=== PATIENT | female | born 1990 | race Caucasian/White ===

== ENCOUNTER 2020-03-07 08:30 | Outpatient (REF) | payer OTHER, SELFPAY ==
[2020-03-07 10:00] LABS: Alanine Aminotransferase 22 U/L (0-31); Albumin Level 4.7 g/dL (3.5-5.0); Alkaline Phosphatase 89 U/L (39-117); Anion Gap 13 (12-20); Aspartate Amino Transferase 18 U/L (5-31); Bilirubin Total 0.7 mg/dL (0.0-1.0); Blood Urea Nitrogen 9 mg/dL (9-16); Calcium 9.2 mg/dL (8.4-10.2); Carbon Dioxide 25 mmol/L (22-29); Chloride 105 mmol/L (96-108); Cholesterol 231 mg/dL; Estimated Glomerular Filt Rate > 60; Glucose Fasting 141 mg/dL (60-99); HDL Cholesterol 54 mg/dL; LDL Cholesterol Calculated 163 mg/dl; Potassium 4.5 mmol/l (3.3-5.1); Sodium 138 mmol/L (135-145); Total Protein 6.8 g/dL (6.5-8.0); Triglycerides 71 mg/dL
[2020-03-07 10:12] LABS: Estimated Average Glucose 114 mg/dL; Hemoglobin A1c % 5.6 %
[2020-03-07 10:49] LABS: Glucose Urine UA NEG (NEG); Leukocyte Esterase Urine NEG (NEG); Nitrite Urine NEG (NEG); Specific Gravity - Urine 1.015 (1.005-1.025); Urine Blood NEG (NEG); Urine Ketones NEG (NEG); Urine Protein NEG (NEG-TRACE)
[2020-03-07 10:51] LABS: Appearance Urine HAZY; Color Urine YELLOW
[2020-03-07 11:08] LABS: Bacteria Urine 3+ /LPF; RBC Urine 0 /HPF (0); Squamous Epithelial Cell Urine TRACE /LPF; WBC Urine 0-2 /HPF (0-4)
== END 2020-03-07 08:31 | disposition home or self-care (01) ==
LOC: HO.LAB 08:30
PROVIDERS: PCP Physician Assistant; Visit Provider Physician Assistant
DX: Z13.220 Encounter for screening for lipoid disorders (principal); Z13.29 Encounter for screening for other suspected endocrine disorder
CPT/HCPCS: 80053; 80061; 81001; 83036

== ENCOUNTER 2020-04-10 11:26 | Outpatient (REF) | payer OTHER, SELFPAY ==
[2020-04-11 09:36] LABS: BV Int Neg Control Negative (Negative); BV Int Pos Control Positive (Positive)
[2020-04-11 09:49] LABS: CT PCR NOT DETECTED (Not Detect.); NG PCR NOT DETECTED (Not Detect.)
== END 2020-04-10 11:27 | disposition home or self-care (01) ==
LOC: HO.LAB 11:26
PROVIDERS: PCP Physician Assistant; Visit Provider Obstetrics & Gynecology
DX: R10.2 Pelvic and perineal pain (principal); N93.9 Abnormal uterine and vaginal bleeding, unspecified; Z11.3 Encounter for screening for infections with a predominantly sexual mode of transmission
CPT/HCPCS: 87480; 87491; 87510; 87591; 87660; 99212

== ENCOUNTER 2020-04-23 14:07 | Outpatient (REF) | payer OTHER, SELFPAY | END 2020-04-23 14:08 | disposition home or self-care (01) | LOC: HO.LAB 14:07 | PROVIDERS: Visit Provider Internal Medicine | DX: Z20.828 Contact with and (suspected) exposure to other viral communicable diseases (principal) | CPT/HCPCS: C9803; U0003 ==

== ENCOUNTER 2020-04-30 08:35 | Outpatient (REF) | payer OTHER, SELFPAY ==
[2020-05-03 18:37] LABS: HPV mRNA E6/E7 rflx Not Detected (Not Detected)
== END 2020-04-30 08:36 | disposition home or self-care (01) ==
LOC: HO.LAB 08:35
PROVIDERS: Visit Provider Obstetrics & Gynecology
DX: N75.1 Abscess of Bartholin's gland (principal); Z12.4 Encounter for screening for malignant neoplasm of cervix
CPT/HCPCS: 56420; 87071; 87205; 87624; 87625; 88142

== ENCOUNTER → 2020-05-07 09:10 | Outpatient (BNVA) | payer OTHER, SELFPAY | PROVIDERS: Visit Provider Obstetrics & Gynecology | DX: N75.1 Abscess of Bartholin's gland (principal) | CPT/HCPCS: 99212 ==

== ENCOUNTER 2020-09-04 10:48 | Outpatient (REF) | payer OTHER, SELFPAY ==
[2020-09-04 14:19] LABS: MANUAL DIFF FLAG NO
[2020-09-04 14:28] LABS: Basophils Absolute Auto 0.1 X10*3/uL (0.0-0.2); Basophils Percent Auto 0.8 % (0-2); Eosinophils Absolute Auto 0.3 X10*3/uL (0.0-0.4); Eosinophils Percent Auto 4.8 % (0-4); Hemoglobin 14.6 g/dl (12.0-16.0); Imm Gran Abs Auto 0.01 X10*3/uL (0.00-0.03); Imm Gran Pct Auto 0.2 % (0.0-0.4); Lymphocytes Percent Auto 16.4 % (20-40); Mean Corpuscular HGB Conc 32.4 g/dl (31.0-35.0); Mean Corpuscular Volume 83.3 fL (80-98); Mean Platelet Volume 12.2 fL (9.4-12.3); Monocytes Absolute Auto 0.5 X10*3/uL (0.1-1.2); Monocytes Percent Auto 8.5 % (2-11); Neutrophils Absolute Auto 4.3 X10*3/uL (2.0-8.3); Neutrophils Percent Auto 69.3 % (45-73); Platelet Count 236 X10*3/uL (160-400); Red Cell Distribution Width 12.9 % (11.0-16.0); White Blood Count 6.2 X10*3/uL (4.8-10.8)
[2020-09-04 14:54] LABS: Alanine Aminotransferase 48 U/L (0-31); Albumin Level 4.3 g/dL (3.5-5.0); Alkaline Phosphatase 101 U/L (39-117); Anion Gap 15 (12-20); Aspartate Amino Transferase 32 U/L (5-31); Bilirubin Total 0.8 mg/dL (0.0-1.0); Blood Urea Nitrogen 10 mg/dL (9-16); Calcium 9.1 mg/dL (8.4-10.2); Carbon Dioxide 30 mmol/L (22-29); Chloride 99 mmol/L (96-108); Cholesterol 229 mg/dL; Estimated Glomerular Filt Rate > 60; Glucose Fasting 98 mg/dL (60-99); HDL Cholesterol 44 mg/dL; LDL Cholesterol Calculated 156 mg/dl; Potassium 3.9 mmol/L (3.3-5.1); Sodium 140 mmol/L (135-145); Total Protein 6.5 g/dL (6.5-8.0); Triglycerides 147 mg/dL
[2020-09-04 15:15] LABS: TSH reflex Free T4 0.66 uIU/mL (0.32-4.0)
[2020-09-04 16:07] LABS: Estimated Average Glucose 114 mg/dL; Hemoglobin A1C 136.8653 umol/L; Hemoglobin A1c % 5.6 %
== END 2020-09-04 10:49 | disposition home or self-care (01) ==
LOC: HO.HMGCLDS 10:48
PROVIDERS: Absent Provider Nurse Practitioner Family; Visit Provider Physician Assistant
DX: E66.01 Morbid (severe) obesity due to excess calories (principal); Z68.41 Body mass index [BMI] 40.0-44.9, adult; R73.09 Other abnormal glucose; E78.9 Disorder of lipoprotein metabolism, unspecified; D69.6 Thrombocytopenia, unspecified
CPT/HCPCS: 80053; 80061; 83036; 84443; 85025

== ENCOUNTER 2020-09-17 14:05 | Emergency (ER) | payer OTHER, SELFPAY ==
--- NOTE | ~2020-09-17 | US_ITS ---
EXAMINATION: PELVIC ULTRASOUND CLINICAL INFORMATION: Pelvic pain COMPARISON: Pelvic ultrasound 10/30/2018 TECHNIQUE: Both transabdominal and endovaginal scanning was performed. FINDINGS: The anteverted uterus is present measuring 9.0 x 3.9 x 3.6 cm. The endometrium appears normal at 0.7 cm. A single uterine fibroid is again seen at the fundus measuring 1.1 x 1.0 x 1.5 cm without significant change. The right ovary measures 5.7 x 5.2 x 5.9 cm for a volume of 92 mL which includes a 4.3 x 3.4 x 4.3 cm cyst. Some smaller cysts are noted as well. The left ovary measures 1.6 x 1.0 x 1.2 cm for volume of 1 mL and appears normal. A small amount of free fluid is present in the cul-de-sac US/US pelvic and transvaginal IMPRESSION: 4.3 cm simple appearing right ovarian cyst. This is almost certainly benign and no follow-up imaging is recommended.
[2020-09-17 14:20] VITALS: BP 157/103; PULSE 97; RESP 18; TEMP 35.7; O2SAT 100; BMI 43.9
[2020-09-17 16:39] LABS: MANUAL DIFF FLAG NO
[2020-09-17 16:42] LABS: Glucose Urine UA NEG (NEG); Leukocyte Esterase Urine NEG (NEG); Nitrite Urine NEG (NEG); Specific Gravity - Urine <= 1.005 (1.005-1.025); Urine Blood NEG (NEG); Urine Ketones NEG (NEG); Urine Protein NEG (NEG-TRACE)
[2020-09-17 16:43] LABS: Appearance Urine CLEAR; Color Urine YELLOW
[2020-09-17 16:44] LABS: Basophils Absolute Auto 0.1 X10*3/uL (0.0-0.2); Basophils Percent Auto 0.6 % (0-2); Eosinophils Absolute Auto 0.1 X10*3/uL (0.0-0.4); Hematocrit 41.6 % (37-47); Hemoglobin 13.8 g/dl (12.0-16.0); Imm Gran Abs Auto 0.02 X10*3/uL (0.00-0.03); Imm Gran Pct Auto 0.2 % (0.0-0.4); Lymphocytes Absolute Auto 1.1 X10*3/uL (1.2-4.9); Lymphocytes Percent Auto 11.9 % (20-40); Mean Corpuscular HGB Conc 33.2 g/dl (31.0-35.0); Mean Corpuscular Hemoglobin 27.3 pg (27.0-33.0); Mean Corpuscular Volume 82.2 fL (80-98); Mean Platelet Volume 11.4 fL (9.4-12.3); Monocytes Absolute Auto 0.6 X10*3/uL (0.1-1.2); Monocytes Percent Auto 5.7 % (2-11); Neutrophils Absolute Auto 7.7 X10*3/uL (2.0-8.3); Neutrophils Percent Auto 80.6 % (45-73); Platelet Count 220 X10*3/uL (160-400); Red Blood Count 5.06 X10*6/uL (4.20-5.50); Red Cell Distribution Width 12.7 % (11.0-16.0); White Blood Count 9.6 X10*3/uL (4.8-10.8)
[2020-09-17 17:08] LABS: Alanine Aminotransferase 33 U/L (0-31); Albumin Level 4.2 g/dL (3.5-5.0); Alkaline Phosphatase 93 U/L (39-117); Anion Gap 14 (12-20); Aspartate Amino Transferase 28 U/L (5-31); Bilirubin Total 0.6 mg/dL (0.0-1.0); Blood Urea Nitrogen 9 mg/dL (9-16); Calcium 8.7 mg/dL (8.4-10.2); Carbon Dioxide 25 mmol/L (22-29); Chloride 103 mmol/L (96-108); Estimated Glomerular Filt Rate > 60; Glucose Random 94 mg/dL (60-115); Potassium 3.8 mmol/L (3.3-5.1); Sodium 138 mmol/L (135-145); Total Protein 6.3 g/dL (6.5-8.0)
--- NOTE | 2020-09-17 17:29 | ED.ABDPAIN ---
HPI - Abdominal Pain General Chief Complaint: Abdominal Pain Stated Complaint: PELVIC PAIN Time Seen by Provider: 09/17/20 17:25 Source: patient Mode of arrival: ambulatory Limitations: no limitations History of Present Illness HPI narrative: 30-year-old female with past medical history of thrombocytopenia, hypertension, hyperlipidemia, and obesity presents with several hours of lower abdominal pain. States that she has known ovarian cyst. States the pain worsens with urination. Patient does not report any risk for sexually transmitted infection, and denies vaginal bleeding, vaginal discharge, chest pain or pressure, palpitations, shortness breath, abdominal distention, hematuria, fevers, chills, and edema. MD elicited complaint: abdominal pain Onset (ago): hour(s) (Several hours prior to arrival) Pain Consistency: constant Location: suprapubic Severity: moderate Quality: cramping and aching Radiation: RLQ Exacerbating factors: other (Voiding) Relieving factors: nothing Associated symptoms: denies other symptoms Related Data Home Medications Medication Instructions Recorded Confirmed albuterol sulfate 90 mcg/actuation 2 puff PO Q4H PRN 04/03/20 04/03/20 aerosol inhaler barium sulfate 2 % (w/v) oral ml PO 09/02/20 suspension chlorhexidine gluconate 0.12 % ml PO 09/02/20 mouthwash doxycycline hyclate 100 mg tablet 100 mg PO BID 09/02/20 hydrochlorothiazide 50 mg tablet 50 mg PO QAM 09/02/20 lisinopril 10 mg tablet 10 mg PO DAILY 09/02/20 omeprazole 20 mg capsule,delayed 20 mg PO DAILY 09/02/20 release prednisone 20 mg tablet 40 mg PO QAM 09/02/20 Previous Rx's Medication Instructions Recorded lorazepam 0.5 mg tablet 0.5 mg PO BEDTIME PRN 5 Days #5 tab 04/03/20 sulfamethoxazole 800 1 tab PO BID 5 Days #10 tab 05/02/20 mg-trimethoprim 160 mg tablet hydrochlorothiazide 25 mg tablet 25 mg PO QAM #30 cap 08/18/20 azithromycin 250 mg tablet See Rx Instructions PO .COMPLEX #6 09/02/20 tab ibuprofen 600 mg PO TID PRN #60 tab 09/17/20 Allergies Allergy/AdvReac Type Severity Reaction Status Date / Time amlodipine Allergy Unknown Hives Verified 07/25/20 07:45 amoxicillin [AMOXICILLIN] Allergy Unknown UNKNOWN Verified 07/25/20 07:45 aspirin [ASPIRIN] Allergy Unknown LOW Verified 07/25/20 07:45 PLATELETS, bleeding, ITP propranolol Allergy Unknown Hives Verified 07/25/20 07:45 Review of Systems Review of Systems Constitutional: No Weight loss, No Fever, No Chills, No Night Sweats, No Fatigue, No Malaise ENT/Mouth: No Hearing loss, No Ear Pain, No Nasal Congestion, No Sinus Pain, No Hoarseness, No sore throat, No Rhinorrhea, No Swallowing Difficulty Eyes: No Eye Pain, No Swelling, No Redness, No Foreign Body, No Discharge, No Vision Changes Cardiovascular: No Chest Pain, No SOB, No Dyspnea on Exertion, No Orthopnea, No Edema, No Palpitations Respiratory: No Cough, No Sputum, No Wheezing, No Smoke Exposure, No Dyspnea Gastrointestinal: Positive abdominal pain, No Nausea, no Vomiting, no Diarrhea, No Hematochezia, No Melena Genitourinary: no irregular bleeding, No Dysuria, No Urinary Frequency, No Hematuria, No Urinary Incontinence, No Urgency, No Flank Pain, No Urinary Flow Changes, No Hesitancy Musculoskeletal: No joint pain, No Myalgias, No Joint Swelling Skin: No Skin Lesions, No rash Neuro: No Weakness, No Numbness, No Paresthesias, No Loss of Consciousness, No Dizziness, No Headache Psych: No Anxiety/Panic, No Depression, No SI/HI/AH/VH, No Social Issues Heme/Lymph: No Bruising, No Bleeding,No Lymphadenopathy Endocrine: No Polyuria, No Polydipsia, No Temperature Intolerance Yes all other systems are reviewed and are negative Physical Exam Vital Signs: Vital Signs: Last Vital Signs Temp 96.2 F L 09/17/20 14:20 Pulse 96 09/17/20 18:36 Resp 16 09/17/20 18:36 BP 151/97 H 09/17/20 18:36 Pulse Ox 100 09/17/20 18:36 Body Mass Index 43.9 Appearance: Alert. Oriented X3. Mild distress. Head: Normal external exam. Normocephalic. Atraumatic. No Kaye signs noted. No raccoon eyes noted Eyes: PERRLA. EOMI. Conjunctiva and sclera normal. Eyelids normal. ENT: TM's Normal. Pharynx normal. Uvula midline. Moist mucous membranes. No trismus noted. No drooling noted. No muffled voice noted. Neck: Normal inspection. Neck supple. No adenopathy. CVS: Normal heart rate and rhythm. Heart sound normal. No murmurs noted. Pulses equal to all extremities. Respiratory: No respiratory distress. Painless inspiration. Breath sounds normal. No wheezes/rales/rhonchi noted. Chest nontender. No accessory muscle usage noted or decreased air movement noted. Abdomen: Soft and suprapubic tenderness. Negative More, McBurney, psoas, obturator, no rebound or rigidity, Bowel sounds normal in all 4 quadrants. No distention noted. No organomegaly noted. No visible injury noted. Back: No CVA tenderness. Full range of motion noted. Skin: Skin warm and dry. Normal skin color. Normal skin turgor. No rashes/lesions/lacerations noted. Extremities: No lower extremity edema. Extremities exhibit normal range of motion. Extremities nontender. Neuro: cranial nerves 2-12 intact, no focal neural deficits, strength 5/5 to all extremities, No motor deficit. No sensory deficit. Course Course Course Narrative: 30-year-old female presents with several hours of suprapubic abdominal pain that worsens with urination. Urinalysis negative for UTI, will order pelvic ultrasound. Pelvic ultrasound negative for acute findings, no indication of ectopic . Plan of care is to discharge home with Motrin and follow up with her OBGYN for benign ovarian cyst and uterine fibroid. Patient verbalized understanding of and agrees to plan of care discharge home. MDM - Abdominal Pain Differential Diagnosis Differential diagnosis: Likely abdominal pain and ovarian cyst Medical Records Attestation: I reviewed the patient's medical records. Lab Data Attestation: I reviewed the patient's lab results. Result diagrams: 09/17/20 16:34 09/17/20 16:34 Labs: Lab Results 09/17/20 09/17/20 09/17/20 Range/Units 16:34 16:34 16:34 WBC 9.6 (4.8-10.8) X10*3/uL RBC 5.06 (4.20-5.50) X10*6/uL Hgb 13.8 (12.0-16.0) g/dl Hct 41.6 (37-47) % MCV 82.2 (80-98) fL MCH 27.3 (27.0-33.0) pg MCHC 33.2 (31.0-35.0) g/dl RDW 12.7 (11.0-16.0) % Plt Count 220 (160-400) X10*3/uL MPV 11.4 (9.4-12.3) fL Immature Gran % (Auto) 0.2 (0.0-0.4) % Neut % (Auto) 80.6 H (45-73) % Lymph % (Auto) 11.9 L (20-40) % [place] % (Auto) 5.7 (2-11) % Eos % (Auto) 1.0 (0-4) % Baso % (Auto) 0.6 (0-2) % Lymph # (Auto) 1.1 L (1.2-4.9) X10*3/uL [place] # (Auto) 0.6 (0.1-1.2) X10*3/uL Eos # (Auto) 0.1 (0.0-0.4) X10*3/uL Baso # (Auto) 0.1 (0.0-0.2) X10*3/uL Abs Immat Gran (auto) 0.02 (0.00-0.03) X10*3/uL Absolute Neuts (auto) 7.7 (2.0-8.3) X10*3/uL Absolute Nucleated RBC 0.000 (0.0-0.012) X10*3/uL Nucleated RBC % (auto) 0.0 (0.0-0.2) /100WBC Hold Blue Top SEE NOTE Sodium 138 (135-145) mmol/L Potassium 3.8 (3.3-5.1) mmol/L Chloride 103 (96-108) mmol/L Carbon Dioxide 25 (22-29) mmol/L Anion Gap 14 (12-20) BUN 9 (9-16) mg/dL Creatinine 0.91 (0.5-1.4) mg/dL Estim Creat Clear Calc 104.0 Estimated GFR > 60 Random Glucose 94 (60-115) mg/dL Calcium 8.7 (8.4-10.2) mg/dL Total Bilirubin 0.6 (0.0-1.0) mg/dL AST 28 (5-31) U/L ALT 33 H (0-31) U/L Alkaline Phosphatase 93 (39-117) U/L Total Protein 6.3 L (6.5-8.0) g/dL Albumin 4.2 (3.5-5.0) g/dL Urine Color Urine Appearance Urine pH (5.0-8.0) Ur Specific [place] (1.005-1.025) Urine Protein (NEG-TRACE) MG/DL Urine Glucose (UA) (NEG) MG/DL Urine Ketones (NEG) MG/DL Urine Blood (NEG) Urine Nitrite (NEG) Ur Leukocyte Esterase (NEG) 09/17/20 Range/Units 16:34 WBC (4.8-10.8) X10*3/uL RBC (4.20-5.50) X10*6/uL Hgb (12.0-16.0) g/dl Hct (37-47) % MCV (80-98) fL MCH (27.0-33.0) pg MCHC (31.0-35.0) g/dl RDW (11.0-16.0) % Plt Count (160-400) X10*3/uL MPV (9.4-12.3) fL Immature Gran % (Auto) (0.0-0.4) % Neut % (Auto) (45-73) % Lymph % (Auto) (20-40) % [place] % (Auto) (2-11) % Eos % (Auto) (0-4) % Baso % (Auto) (0-2) % Lymph # (Auto) (1.2-4.9) X10*3/uL [place] # (Auto) (0.1-1.2) X10*3/uL Eos # (Auto) (0.0-0.4) X10*3/uL Baso # (Auto) (0.0-0.2) X10*3/uL Abs Immat Gran (auto) (0.00-0.03) X10*3/uL Absolute Neuts (auto) (2.0-8.3) X10*3/uL Absolute Nucleated RBC (0.0-0.012) X10*3/uL Nucleated RBC % (auto) (0.0-0.2) /100WBC Hold Blue Top Sodium (135-145) mmol/L Potassium (3.3-5.1) mmol/L Chloride (96-108) mmol/L Carbon Dioxide (22-29) mmol/L Anion Gap (12-20) BUN (9-16) mg/dL Creatinine (0.5-1.4) mg/dL Estim Creat Clear Calc Estimated GFR Random Glucose (60-115) mg/dL Calcium (8.4-10.2) mg/dL Total Bilirubin (0.0-1.0) mg/dL AST (5-31) U/L ALT (0-31) U/L Alkaline Phosphatase (39-117) U/L Total Protein (6.5-8.0) g/dL Albumin (3.5-5.0) g/dL Urine Color YELLOW Urine Appearance CLEAR Urine pH 6.0 (5.0-8.0) Ur Specific [place] <= 1.005 (1.005-1.025) Urine Protein NEG (NEG-TRACE) MG/DL Urine Glucose (UA) NEG (NEG) MG/DL Urine Ketones NEG (NEG) MG/DL Urine Blood NEG (NEG) Urine Nitrite NEG (NEG) Ur Leukocyte Esterase NEG (NEG) Imaging Data Pelvic ultrasound: Attestation: I personally reviewed and interpreted this imaging study as follows: Radiologist's impression: EXAMINATION: PELVIC ULTRASOUND CLINICAL INFORMATION: Pelvic pain COMPARISON: Pelvic ultrasound 10/30/2018 TECHNIQUE: Both transabdominal and endovaginal scanning was performed. FINDINGS: The anteverted uterus is present measuring 9.0 x 3.9 x 3.6 cm. The endometrium appears normal at 0.7 cm. A single uterine fibroid is again seen at the fundus measuring 1.1 x 1.0 x 1.5 cm without significant change. The right ovary measures 5.7 x 5.2 x 5.9 cm for a volume of 92 mL which includes a 4.3 x 3.4 x 4.3 cm cyst. Some smaller cysts are noted as well. The left ovary measures 1.6 x 1.0 x 1.2 cm for volume of 1 mL and appears normal. A small amount of free fluid is present in the cul-de-sac US/US pelvic and transvaginal IMPRESSION: 4.3 cm simple appearing right ovarian cyst. This is almost certainly benign and no follow-up imaging is recommended. Discharge Plan Discharge Clinical Impression: Abdominal pain Patient Disposition: Home, Self-Care Instructions: Abdominal Pain (ED) Additional Instructions: You were evaluated for abdominal pain. Your lab values were unremarkable, with a low likelihood of infection. Your pelvic ultrasound showed benign findings of an ovarian cyst and a uterine fibroid. Please follow-up with OBGYN for further care. This abdominal pain could also be an early appendicitis. If pain progresses, you develop fevers, chills, nausea, vomiting, or any other concerning symptoms, please return for evaluation. Thank you for choosing this emergency department for evaluation. Please follow-up with primary care physician as needed. Return to the emergency department for any new, concerning, or worsening symptoms. Prescriptions: New ibuprofen 600 mg tablet 600 mg PO TID PRN (Reason: pain) Qty: 60 RF: 0 No Action sulfamethoxazole-trimethoprim [Bactrim DS] 800-160 mg tablet 1 tab PO BID 5 Days Qty: 10 RF: 0 hydrochlorothiazide 25 mg tablet 25 mg PO QAM Qty: 30 RF: 4 chlorhexidine gluconate 0.12 % mouthwash PO RF: 0 prednisone 20 mg tablet 40 mg PO QAM RF: 0 doxycycline hyclate 100 mg tablet 100 mg PO BID RF: 0 omeprazole 20 mg capsule,delayed release(DR/EC) 20 mg PO DAILY RF: 0 hydrochlorothiazide 50 mg tablet 50 mg PO QAM RF: 0 lisinopril 10 mg tablet 10 mg PO DAILY RF: 0 Readi-Cat 2 2 % (w/v) suspension PO RF: 0 azithromycin 250 mg tablet See Rx Instructions PO .COMPLEX Qty: 6 RF: 0 albuterol sulfate 90 mcg/actuation HFA aerosol inhaler 2 puff PO Q4H PRNRF: 0 lorazepam 0.5 mg tablet 0.5 mg PO BEDTIME PRN (Reason: anxiety) 5 Days Qty: 5 RF: 0 Interventions: ED Discharge Assessment Last Done: 09/17/20 19:56 Discharge Date/Time: 09/17/20 19:57 [facility] Past Medical History Attestation statement: The following information was validated with the patient. Source: old records reviewed Medical History Asthma History of ITP Hypertension Obesity, morbid, BMI 40.0-49.9 Surgical History History of ectopic History of hemorrhoidectomy History of wisdom tooth extraction Family History Family History Father Hypertension Mother Hypertension Diabetes Sister Hypertension Fatty liver Maternal Grandmother Diabetes Hypertension Lung cancer Sister Prediabetes Maternal Grandfather Lung cancer Social History Social History Alcohol intake: current Alcohol intake frequency: holidays/special occasions only Alcohol type: wine Smoking Status: Never smoker Advance Directives: No Advance Directives Information Provided: Yes Sexual orientation: Straight/Heterosexual Gender identity: female
[2020-09-17] MEDS: Ibuprofen 600 MG TABLET PO (18:31)
[2020-09-17 18:36] VITALS: BP 151/97; PULSE 96; RESP 16; O2SAT 100
== END 2020-09-17 19:57 | disposition home or self-care (01) ==
PROVIDERS: Emergency Provider Internal Medicine; PCP Physician Assistant
DX: R10.2 Pelvic and perineal pain (principal); E78.5 Hyperlipidemia, unspecified; I10 Essential (primary) hypertension; Z79.899 Other long term (current) drug therapy
CPT/HCPCS: 36415; 76830; 76856; 80053; 81003; 85025; 99284

== ENCOUNTER → 2020-09-23 10:58 | Outpatient (BNVA) | payer OTHER, SELFPAY | PROVIDERS: PCP Physician Assistant; Visit Provider Obstetrics & Gynecology ==

== ENCOUNTER 2020-10-08 14:05 | Outpatient (REF) | payer OTHER, SELFPAY | END 2020-10-08 14:06 | disposition home or self-care (01) | LOC: HO.LAB 14:05 | PROVIDERS: PCP Physician Assistant; Visit Provider Obstetrics & Gynecology | DX: N75.1 Abscess of Bartholin's gland (principal); N83.201 Unspecified ovarian cyst, right side | CPT/HCPCS: 56420; 87071; 87147; 87205; 99212 ==

== ENCOUNTER 2020-10-16 17:08 | Emergency (ER) | payer OTHER, SELFPAY ==
[2020-10-16 17:24] VITALS: BP 135/107; PULSE 115; RESP 18; TEMP 37.7; O2SAT 98; BMI 43.1
--- NOTE | 2020-10-16 20:54 | ED.FEMALEGU ---
HPI - Female Genitourinary General Chief complaint: Urogenital-Female Stated complaint: cath issues Time Seen by Provider: 10/16/20 17:12 History of Present Illness HPI Narrative: Patient is a 30-year-old female. History of odd). Status post word catheter placed approximately 1 week ago. Patient complained the catheter fell out. Subsequently the abscess redevelop. Luckily it burst on its own. There is drainage of purulence material. Patient's symptom has subsequently improved. Came in for further evaluation. Patient denies any fever chills. No systemic complaints. The pain and the area is actually improved. Patient is from home. Related Data Home Medications Medication Instructions Recorded Confirmed albuterol sulfate 90 mcg/actuation 2 puff PO Q4H PRN 04/03/20 09/22/20 aerosol inhaler Previous Rx's Medication Instructions Recorded hydrochlorothiazide 25 mg tablet 25 mg PO QAM #30 cap 08/18/20 ibuprofen 600 mg PO TID PRN #60 tab 09/17/20 sulfamethoxazole 800 1 tab PO BID 10 Days #20 tab 10/09/20 mg-trimethoprim 160 mg tablet Allergies Allergy/AdvReac Type Severity Reaction Status Date / Time amlodipine Allergy Unknown Hives Verified 10/16/20 17:29 amoxicillin [AMOXICILLIN] Allergy Unknown UNKNOWN Verified 10/16/20 17:29 aspirin [ASPIRIN] Allergy Unknown LOW Verified 10/16/20 17:29 PLATELETS, bleeding, ITP propranolol Allergy Unknown Hives Verified 10/16/20 17:29 Review of Systems Review of Systems: Constitutional: No Weight loss, No Fever, No Chills, No Night Sweats, No Fatigue, No Malaise ENT/Mouth: No Hearing loss, No Ear Pain, No Nasal Congestion, No Sinus Pain, No Hoarseness, No sore throat, No Rhinorrhea, No Swallowing Difficulty Eyes: No Eye Pain, No Swelling, No Redness, No Foreign Body, No Discharge, No Vision Changes Cardiovascular: No Chest Pain, No SOB, No Dyspnea on Exertion, No Orthopnea, No Edema, No Palpitations Respiratory: No Cough, No Sputum, No Wheezing, No Smoke Exposure, No Dyspnea Gastrointestinal: No Nausea, No Vomiting, No Diarrhea, No Constipation, No abdominal Pain, No Hematochezia, No Melena Genitourinary: no irregular bleeding, No Dysuria, No Urinary Frequency, No Hematuria, No Urinary Incontinence, No Urgency, No Flank Pain, No Urinary Flow Changes, No Hesitancy Musculoskeletal: No joint pain, No Myalgias, No Joint Swelling Skin: No Skin Lesions, No rash Neuro: No Weakness, No Numbness, No Paresthesias, No Loss of Consciousness, No Dizziness, No Headache Psych: No Anxiety/Panic, No Depression, No SI/HI/AH/VH, No Social Issues, Heme/Lymph: No Bruising, No Bleeding,No Lymphadenopathy Endocrine: No Polyuria, No Polydipsia, No Temperature Intolerance [facility] Past Medical History Attestation statement: The following information was validated with the patient. Medical History Asthma Bartholin gland cyst History of ITP Hypertension Obesity, morbid, BMI 40.0-49.9 Surgical History History of ectopic History of hemorrhoidectomy History of wisdom tooth extraction Family History Family History Father Hypertension Mother Hypertension Diabetes Sister Hypertension Fatty liver Maternal Grandmother Diabetes Hypertension Lung cancer Sister Prediabetes Maternal Grandfather Lung cancer Social History Social History Alcohol intake: current Alcohol intake frequency: holidays/special occasions only Alcohol type: wine Advance Directives: No Advance Directives Information Provided: Yes Patient : No Sexual orientation: Straight/Heterosexual Gender identity: female Physical Exam Vital Signs: Vital Signs: Last Vital Signs Temp 99.9 F 10/16/20 17:24 Pulse 115 H 10/16/20 17:24 Resp 18 10/16/20 17:24 BP 135/107 H 10/16/20 17:24 Pulse Ox 98 10/16/20 17:24 Body Mass Index 43.1 Appearance: Alert. Oriented X3. No acute distress. Eyes: Pupils equal, round and reactive to light. ENT: Pharynx normal. Neck: Normal inspection. Neck supple. No lymph nodes noted. No crepitus CVS: Normal heart rate and rhythm. Pulses normal. Normal S1 and S2 Respiratory: No respiratory distress. Breath sounds normal. No Wheezing. No rales Abdomen: Soft and nontender. No rigidity. No distention. good BS x4 Skin: Skin warm and dry. Normal skin color. Normal skin turgor. Extremities: No lower extremity edema. Neurovascular intact to all extremities. No Lacerations. No Rash Neuro: Oriented X 3. No motor deficit. No sensory deficit. Moving all extermities. No slurred speech exam done with tech present. Patient's often cyst has resolved. There is no fluctuance noted on the right labia. No discharge noted. MDM - Female Genitourinary MDM Narrative Medical decision making narrative: Patient had a Bartholin's cyst which is drained. No distress. Will discharge patient home. Close follow-up on an outpatient basis. Patient already on antibiotics. There is no fluctuance no abscess at this time. In stable condition Discharge Plan Discharge Clinical Impression: Bartholin's gland abscess Patient Disposition: Home, Self-Care Instructions: Incision and Drainage (ED), Bartholin Cyst (ED) Prescriptions: No Action hydrochlorothiazide 25 mg tablet 25 mg PO QAM Qty: 30 RF: 4 sulfamethoxazole-trimethoprim 800-160 mg tablet 1 tab PO BID 10 Days Qty: 20 RF: 0 ibuprofen 600 mg tablet 600 mg PO TID PRN (Reason: pain) Qty: 60 RF: 0 albuterol sulfate 90 mcg/actuation HFA aerosol inhaler 2 puff PO Q4H PRNRF: 0 Referrals: Physician,Unknown [Physician] - 2 days (your [employer] doctor)
== END 2020-10-16 21:08 | disposition home or self-care (01) ==
PROVIDERS: Emergency Provider Emergency Medicine Emergency Medical Services; PCP Physician Assistant
DX: N75.1 Abscess of Bartholin's gland (principal)
CPT/HCPCS: 99283

== ENCOUNTER 2020-10-21 11:06 | Outpatient (REF) | payer OTHER, SELFPAY ==
[2020-10-22 08:42] LABS: BV Int Neg Control Negative (Negative); BV Int Pos Control Positive (Positive)
== END 2020-10-21 11:07 | disposition home or self-care (01) ==
LOC: HO.LAB 11:06
PROVIDERS: PCP Physician Assistant; Visit Provider Obstetrics & Gynecology
DX: N75.1 Abscess of Bartholin's gland (principal); N89.8 Other specified noninflammatory disorders of vagina
CPT/HCPCS: 87480; 87510; 87660; 99212

== ENCOUNTER 2020-11-29 12:32 | Emergency (ER) | payer OTHER, SELFPAY ==
--- NOTE | ~2020-11-29 | CT_ITS ---
EXAMINATION: CT ABDOMEN AND PELVIS WITHOUT CONTRAST CLINICAL INFORMATION: Right lower quadrant pain COMPARISON: CT 10/23/2018. Ultrasound pelvis 09/17/2020 TECHNIQUE: Multidetector volumetric imaging was performed from the superior aspect of the liver through the pubic symphysis. Sagittal and coronal reformatted images were obtained on the technologist's workstation. This CT examination was performed using dose optimization techniques as appropriate, variously including the following: *Automated exposure control *Adjustment of mA and/or kV according to patient size (this includes techniques or standardized protocols for targeted exams where dose is matched to indication/reason for exam; i.e. extremities or head) *Use of iterative reconstruction technique DLP: 957 mGy-cm FINDINGS: LUNG BASES: Previously demonstrated patchy groundglass parenchymal have markedly improved with residual groundglass attenuation at the inferior aspect of the right middle lobe. Opacities LIVER, GALLBLADDER, AND BILIARY TREE: The liver is normal in size, shape, and attenuation. No focal hepatic lesion or biliary ductal dilatation is present. The gallbladder is unremarkable with no evidence of radiopaque gallstones, gallbladder wall thickening, or obvious pericholecystic inflammatory changes. PANCREAS: Unremarkable. SPLEEN: Unremarkable. ADRENAL GLANDS: Unremarkable. KIDNEYS AND URETERS: The kidneys are normal in size, shape, and attenuation. No hydronephrosis, hydroureter, or calculi seen. No perinephric stranding. Previously demonstrated right renal cysts are less apparent on this noncontrast study although appear grossly stable. BLADDER: Unremarkable. GASTROINTESTINAL TRACT: The small and large bowel are unremarkable. The appendix is unremarkable. ABDOMINAL WALL: Areas of subcutaneous edema/anasarca appears similar. LYMPH NODES: Retroperitoneal and pelvic lymphadenopathy has improved. VASCULAR: Unremarkable. PELVIC VISCERA: The previously demonstrated right adnexal cyst measures approximately 4.1 cm, perhaps slightly decreased in size since the recent ultrasound. OSSEOUS STRUCTURES: Subtle patchy sclerosis of the femoral heads likely represents avascular necrosis. CT/CT abdomen pelvis wo con IMPRESSION: No focal inflammatory process or obstruction. Normal appendix. Retroperitoneal and pelvic adenopathy has significantly improved. Stable or slightly decreased right adnexal cyst. Patchy groundglass parenchymal opacities at the lung bases have significantly improved. No new abnormality.
[2020-11-29 12:34] VITALS: BP 161/111; PULSE 109; RESP 16; TEMP 36.2; O2SAT 99; BMI 43.3
[2020-11-29 12:59] LABS: Glucose Urine UA NEG (NEG); Leukocyte Esterase Urine NEG (NEG); Nitrite Urine NEG (NEG); PH 6.5 (5.0-8.0); Urine Blood NEG (NEG); Urine Ketones NEG (NEG); Urine Protein NEG (NEG-TRACE)
[2020-11-29 13:02] LABS: Urine Pregnancy NEGATIVE (NEGATIVE)
[2020-11-29 13:03] LABS: Appearance Urine CLEAR; Color Urine STRAW; UPreg QC Valid YES
[2020-11-29 13:23] LABS: RBC Urine 0 /HPF (0); Squamous Epithelial Cell Urine 1+ /LPF; WBC Urine 0 /HPF (0-4)
--- NOTE | 2020-11-29 13:41 | ED.ABDPAIN ---
HPI - Abdominal Pain General Chief Complaint: Abdominal Pain Stated Complaint: abd pain Time Seen by Provider: 11/29/20 13:31 Source: patient Mode of arrival: ambulatory Limitations: no limitations History of Present Illness HPI narrative: 30-year-old female came in for evaluation of lower abdominal pain. Pain started 4 days ago, described as intermittent, moderate 7/10, pain as in the lower abdomen sometimes migrate to the right lower area, the patient radiate to the rectal area, nothing makes the pain worse or better, not associated with nausea, vomiting, fever, or chills. No UTI symptoms no dysuria, no frequency, no hematuria. Normal bowel movement last bowel movement was yesterday. Patient had similar pain in the past and was ovarian cyst. Related Data Home Medications Medication Instructions Recorded Confirmed albuterol sulfate 90 mcg/actuation 2 puff PO Q4H PRN 04/03/20 11/27/20 aerosol inhaler Previous Rx's Medication Instructions Recorded hydrochlorothiazide 25 mg tablet 25 mg PO QAM #30 cap 08/18/20 ibuprofen 600 mg PO TID PRN #60 tab 09/17/20 sulfamethoxazole 800 1 tab PO BID 10 Days #20 tab 10/09/20 mg-trimethoprim 160 mg tablet nystatin 100,000 unit/gram topical 1 appl TOPICAL DAILY 15 Days #30 g 10/27/20 cream azithromycin 500 mg tablet 500 mg PO DAILY 5 Days #5 tab 11/27/20 Allergies Allergy/AdvReac Type Severity Reaction Status Date / Time amlodipine Allergy Unknown Hives Verified 11/27/20 12:30 amoxicillin [AMOXICILLIN] Allergy Unknown UNKNOWN Verified 11/27/20 12:30 aspirin [ASPIRIN] Allergy Unknown LOW Verified 11/27/20 12:30 PLATELETS, bleeding, ITP propranolol Allergy Unknown Hives Verified 11/27/20 12:30 Review of Systems Review of Systems All other systems are reviewed and are negative Constitutional: Reports as per HPI and Reports no additional constitutional complaints Eyes: Reports as per HPI and Reports no additional eye complaints Reports system reviewed and no additional complaints, except as documented Cardiovascular: Reports as per HPI and Reports no additional cardiovascular complaints Respiratory: Reports as per HPI and Reports no additional respiratory complaints Gastrointestinal: Reports as per HPI and Reports no additional gastrointestinal complaints Genitourinary: Reports no additional female genitourinary complaints Musculoskeletal: Reports no additional musculoskeletal complaints Skin/Breast: Reports system reviewed and no additional complaints, except as docu Psychiatric: Reports no additional psychiatric complaints Endocrine: Reports no additional endocrine complaints Hematologic/Lymphatic: Reports no additional hematologic/lymphatic complaints Allergic/Immunologic: Reports no additional allergic/immunologic complaints Reports system reviewed and no additional complaints, except as documented and Reports Abnormal speech present Physical Exam Vital Signs: Vital Signs: Last Vital Signs Temp 97.1 F 11/29/20 12:34 Pulse 109 H 11/29/20 12:34 Resp 16 11/29/20 12:34 BP 161/111 H 11/29/20 12:34 Pulse Ox 99 11/29/20 12:34 Body Mass Index 43.3 Vital signs have been reviewed as appeared to be correct. Blood pressure elevated. Heart rate elevated. Respiration rate normal. Temperature normal. Oxygen saturation normal. Appearance: Alert. Oriented X3. No acute distress. Head: Normal external exam. Normocephalic. Atraumatic. No Kaye signs noted. No raccoon eyes noted Eyes: PERRLA. EOMI. Conjunctiva and sclera normal. Eyelids normal. ENT: TM's Normal. Pharynx normal. Uvula midline. Moist mucous membranes. No trismus noted. No drooling noted. No muffled voice noted. Neck: Normal inspection. Neck supple. FROM. No adenopathy. Thyroid Normal. No meningeal signs. No neck mass noted. CVS: Normal heart rate and rhythm. Heart sound normal. No murmurs noted. Pulses normal throughout. Respiratory: No respiratory distress. Painless inspiration. Breath sounds normal. No wheezes/rales/rhonchi noted. Chest nontender. No accessory muscle usage noted or decreased air movement noted. Abdomen: Soft, mild suprapubic tenderness, no guarding, no rebound tenderness.. Bowel sounds normal in all 4 quadrants. No distention noted. No organomegaly noted. No visible injury noted. Back: No CVA tenderness. Full range of motion noted. Skin: Skin warm and dry. Normal skin color. Normal skin turgor. No rashes/lesions/lacerations noted. Extremities: No lower extremity edema. Extremities exhibit normal range of motion. Extremities nontender. Neuro: Oriented X 3. No motor deficit. No sensory deficit. Reflexes normal. Course Course Course Narrative: Assessment and plan. Four days of abdominal pain, CT/labs are unremarkable for any acute intra-abdominal pathology. Patient was reassured and will be discharged home to follow-up with PCP. MDM - Abdominal Pain Lab Data Attestation: I reviewed the patient's lab results. Result diagrams: 11/29/20 13:49 11/29/20 13:49 Labs: Lab Results 11/29/20 11/29/20 11/29/20 Range/Units 12:44 12:44 13:49 WBC 7.4 (4.8-10.8) X10*3/uL RBC 5.03 (4.20-5.50) X10*6/uL Hgb 13.6 (12.0-16.0) g/dl Hct 40.5 (37-47) % MCV 80.5 (80-98) fL MCH 27.0 (27.0-33.0) pg MCHC 33.6 (31.0-35.0) g/dl RDW 12.6 (11.0-16.0) % Plt Count 228 (160-400) X10*3/uL MPV 11.5 (9.4-12.3) fL Immature Gran % (Auto) 0.1 (0.0-0.4) % Neut % (Auto) 77.4 H (45-73) % Lymph % (Auto) 12.7 L (20-40) % [place] % (Auto) 8.2 (2-11) % Eos % (Auto) 1.2 (0-4) % Baso % (Auto) 0.4 (0-2) % Lymph # (Auto) 0.9 L (1.2-4.9) X10*3/uL [place] # (Auto) 0.6 (0.1-1.2) X10*3/uL Eos # (Auto) 0.1 (0.0-0.4) X10*3/uL Baso # (Auto) 0.0 (0.0-0.2) X10*3/uL Abs Immat Gran (auto) 0.01 (0.00-0.03) X10*3/uL Absolute Neuts (auto) 5.7 (2.0-8.3) X10*3/uL Absolute Nucleated RBC 0.000 (0.0-0.012) X10*3/uL Nucleated RBC % (auto) 0.0 (0.0-0.2) /100WBC Sodium (135-145) mmol/L Potassium (3.3-5.1) mmol/L Chloride (96-108) mmol/L Carbon Dioxide (22-29) mmol/L Anion Gap (12-20) BUN (9-16) mg/dL Creatinine (0.5-1.4) mg/dL Estim Creat Clear Calc Estimated GFR Random Glucose (60-115) mg/dL Calcium (8.4-10.2) mg/dL Total Bilirubin (0.0-1.0) mg/dL AST (5-31) U/L ALT (0-31) U/L Alkaline Phosphatase (39-117) U/L Total Protein (6.5-8.0) g/dL Albumin (3.5-5.0) g/dL Urine Color STRAW Urine Appearance CLEAR Urine pH 6.5 (5.0-8.0) Ur Specific [place] 1.010 (1.005-1.025) Urine Protein NEG (NEG-TRACE) MG/DL Urine Glucose (UA) NEG (NEG) MG/DL Urine Ketones NEG (NEG) MG/DL Urine Blood NEG (NEG) Urine Nitrite NEG (NEG) Ur Leukocyte Esterase NEG (NEG) Urine RBC 0 (0) /HPF Urine WBC 0 (0-4) /HPF Ur Squamous Epith Cells 1+ /LPF Urine Bacteria NONE /LPF Urine Test NEGATIVE (NEGATIVE) 11/29/20 Range/Units 13:49 WBC (4.8-10.8) X10*3/uL RBC (4.20-5.50) X10*6/uL Hgb (12.0-16.0) g/dl Hct (37-47) % MCV (80-98) fL MCH (27.0-33.0) pg MCHC (31.0-35.0) g/dl RDW (11.0-16.0) % Plt Count (160-400) X10*3/uL MPV (9.4-12.3) fL Immature Gran % (Auto) (0.0-0.4) % Neut % (Auto) (45-73) % Lymph % (Auto) (20-40) % [place] % (Auto) (2-11) % Eos % (Auto) (0-4) % Baso % (Auto) (0-2) % Lymph # (Auto) (1.2-4.9) X10*3/uL [place] # (Auto) (0.1-1.2) X10*3/uL Eos # (Auto) (0.0-0.4) X10*3/uL Baso # (Auto) (0.0-0.2) X10*3/uL Abs Immat Gran (auto) (0.00-0.03) X10*3/uL Absolute Neuts (auto) (2.0-8.3) X10*3/uL Absolute Nucleated RBC (0.0-0.012) X10*3/uL Nucleated RBC % (auto) (0.0-0.2) /100WBC Sodium 138 (135-145) mmol/L Potassium 3.4 (3.3-5.1) mmol/L Chloride 102 (96-108) mmol/L Carbon Dioxide 26 (22-29) mmol/L Anion Gap 13 (12-20) BUN 13 (9-16) mg/dL Creatinine 1.00 (0.5-1.4) mg/dL Estim Creat Clear Calc 94.0 Estimated GFR > 60 Random Glucose 95 (60-115) mg/dL Calcium 9.3 D (8.4-10.2) mg/dL Total Bilirubin 0.5 (0.0-1.0) mg/dL AST 32 H (5-31) U/L ALT 43 H (0-31) U/L Alkaline Phosphatase 88 (39-117) U/L Total Protein 6.2 L (6.5-8.0) g/dL Albumin 4.2 (3.5-5.0) g/dL Urine Color Urine Appearance Urine pH (5.0-8.0) Ur Specific [place] (1.005-1.025) Urine Protein (NEG-TRACE) MG/DL Urine Glucose (UA) (NEG) MG/DL Urine Ketones (NEG) MG/DL Urine Blood (NEG) Urine Nitrite (NEG) Ur Leukocyte Esterase (NEG) Urine RBC (0) /HPF Urine WBC (0-4) /HPF Ur Squamous Epith Cells /LPF Urine Bacteria /LPF Urine Test (NEGATIVE) Imaging Data CT scan - abdomen: Radiologist's impression: No focal inflammatory process or obstruction. Normal appendix. Retroperitoneal and pelvic adenopathy has significantly improved. Stable or slightly decreased right adnexal cyst. Patchy groundglass parenchymal opacities at the lung bases have significantly improved. No new abnormality. Discharge Plan Discharge Clinical Impression: Hypertension Abdominal pain Qualifiers: Abdominal location: lower abdomen, unspecified Qualified Code(s): R10.30 - Lower abdominal pain, unspecified Patient Disposition: Home, Self-Care Instructions: Abdominal Pain (ED), Hypertension (ED) Prescriptions: No Action hydrochlorothiazide 25 mg tablet 25 mg PO QAM Qty: 30 RF: 4 sulfamethoxazole-trimethoprim 800-160 mg tablet 1 tab PO BID 10 Days Qty: 20 RF: 0 nystatin 100,000 unit/gram cream 1 appl topical DAILY 15 Days Qty: 30 RF: 0 ibuprofen 600 mg tablet 600 mg PO TID PRN (Reason: pain) Qty: 60 RF: 0 azithromycin 500 mg tablet 500 mg PO DAILY 5 Days Qty: 5 RF: 0 albuterol sulfate 90 mcg/actuation HFA aerosol inhaler 2 puff PO Q4H PRNRF: 0 Referrals: Rajesh Caraballo PA-C [Primary Care Provider] - 2 days [facility] Past Medical History Medical History Asthma Bartholin gland cyst History of ITP Hypertension Obesity, morbid, BMI 40.0-49.9 Surgical History History of ectopic History of hemorrhoidectomy History of wisdom tooth extraction Family History Family History Father Hypertension Mother Hypertension Diabetes Sister Hypertension Fatty liver Maternal Grandmother Diabetes Hypertension Lung cancer Sister Prediabetes Maternal Grandfather Lung cancer Social History Social History Alcohol intake: current Alcohol intake frequency: holidays/special occasions only Alcohol type: wine Advance Directives: Yes Advance Directives Information Provided: Yes Advance Directives on File: No Patient : No Sexual orientation: Straight/Heterosexual Gender identity: female
[2020-11-29 13:53] LABS: MANUAL DIFF FLAG NO
[2020-11-29 13:56] LABS: Basophils Percent Auto 0.4 % (0-2); Eosinophils Absolute Auto 0.1 X10*3/uL (0.0-0.4); Eosinophils Percent Auto 1.2 % (0-4); Hematocrit 40.5 % (37-47); Hemoglobin 13.6 g/dl (12.0-16.0); Imm Gran Abs Auto 0.01 X10*3/uL (0.00-0.03); Imm Gran Pct Auto 0.1 % (0.0-0.4); Lymphocytes Absolute Auto 0.9 X10*3/uL (1.2-4.9); Lymphocytes Percent Auto 12.7 % (20-40); Mean Corpuscular HGB Conc 33.6 g/dl (31.0-35.0); Mean Corpuscular Volume 80.5 fL (80-98); Mean Platelet Volume 11.5 fL (9.4-12.3); Monocytes Absolute Auto 0.6 X10*3/uL (0.1-1.2); Monocytes Percent Auto 8.2 % (2-11); Neutrophils Absolute Auto 5.7 X10*3/uL (2.0-8.3); Neutrophils Percent Auto 77.4 % (45-73); Platelet Count 228 X10*3/uL (160-400); Red Blood Count 5.03 X10*6/uL (4.20-5.50); Red Cell Distribution Width 12.6 % (11.0-16.0); White Blood Count 7.4 X10*3/uL (4.8-10.8)
[2020-11-29 14:30] LABS: Alanine Aminotransferase 43 U/L (0-31); Albumin Level 4.2 g/dL (3.5-5.0); Alkaline Phosphatase 88 U/L (39-117); Anion Gap 13 (12-20); Aspartate Amino Transferase 32 U/L (5-31); Bilirubin Total 0.5 mg/dL (0.0-1.0); Blood Urea Nitrogen 13 mg/dL (9-16); Calcium 9.3 mg/dL (8.4-10.2); Carbon Dioxide 26 mmol/L (22-29); Chloride 102 mmol/L (96-108); Estimated Glomerular Filt Rate > 60; Glucose Random 95 mg/dL (60-115); Potassium 3.4 mmol/L (3.3-5.1); Sodium 138 mmol/L (135-145); Total Protein 6.2 g/dL (6.5-8.0)
== END 2020-11-29 16:36 | disposition home or self-care (01) ==
PROVIDERS: Emergency Provider Emergency Medicine; PCP Physician Assistant
DX: R10.30 Lower abdominal pain, unspecified (principal); I10 Essential (primary) hypertension; J45.909 Unspecified asthma, uncomplicated; Z79.899 Other long term (current) drug therapy
CPT/HCPCS: 36415; 74176; 80053; 81001; 81025; 85025; 99284

== ENCOUNTER 2020-12-01 09:53 | Outpatient (REF) | payer OTHER, SELFPAY ==
--- NOTE | ~2020-12-01 | US_ITS ---
EXAMINATION: PELVIC ULTRASOUND CLINICAL INFORMATION: Right ovarian cyst COMPARISON: Previous pelvic ultrasounds most recent August [address] of the abdomen and pelvis 11/29/2020 TECHNIQUE: Transabdominal and transvaginal pelvic ultrasound was performed. Transvaginal exam was performed for better visualization of the uterus and ovaries. FINDINGS: The uterus is anteverted and measures 8.9 x 4.3 x 5 cm in dimension. There is a small hyperechoic lesion subserosal to the left uterine fundus measuring 1 cm suggestive of a small fibroid. No other focal uterine lesion is seen. Endometrial thickness is normal measuring 0.6 cm. There are nabothian cysts in the cervix. Right ovary is enlarged and measures 8.6 x 4.1 x 4.3 cm in dimension. There is a 4.3 x 4.2 x 4.3 cm complex right ovarian cyst with lacelike septations and internal echoes. Ultrasound appearance is suggestive of a complex hemorrhagic cyst or endometrioma. This appears increased in size and complexity compared to previous pelvic ultrasound August 2020. There is a second complex right ovarian cyst measuring 1.8 x 1.1 x 1.5 cm. The left ovary is seen transabdominally only and appears normal. The left ovary measures 1.7 x 0.8 x 1.4 cm. There is no fluid in the pelvis. US/US pelvic and transvaginal IMPRESSION: Stable small subserosal left fundal uterine fibroid. Enlarged right ovary. 4.7 x 4.2 x 4.3 cm complex right ovarian cyst. This is increased in size and complexity compared to August 2020 exam. Differential would include a hemorrhagic cyst and endometrioma. Second newly appreciated 1.8 x 1.1 x 1.5 cm complex right ovarian cyst.
== END 2020-12-01 09:54 | disposition home or self-care (01) ==
LOC: HO.HMGCX 09:53
PROVIDERS: PCP Physician Assistant; Visit Provider Obstetrics & Gynecology
DX: N83.201 Unspecified ovarian cyst, right side (principal)
CPT/HCPCS: 76830; 76856

== ENCOUNTER → 2020-12-08 15:36 | Outpatient (BNVA) | payer OTHER, SELFPAY | PROVIDERS: PCP Physician Assistant; Visit Provider Obstetrics & Gynecology ==

== ENCOUNTER 2020-12-09 09:52 | Outpatient (REF) | payer OTHER, SELFPAY ==
[2020-12-09 11:00] LABS: Lactate Dehydrogenase 171 U/L (122-220)
[2020-12-09 11:23] LABS: HCG Quantitative < 2 mIU/mL
[2020-12-10 10:02] LABS: CA-125 9 U/mL (<35)
[2020-12-10 12:31] LABS: Alpha Fetoprotein 1.9 ng/mL
== END 2020-12-09 09:53 | disposition home or self-care (01) ==
LOC: HO.LAB 09:52
PROVIDERS: PCP Physician Assistant; Visit Provider Obstetrics & Gynecology
DX: N83.299 Other ovarian cyst, unspecified side (principal)
CPT/HCPCS: 36415; 82105; 82378; 83615; 84702; 86304

== ENCOUNTER 2021-01-16 16:24 | Outpatient (REF) | payer OTHER, SELFPAY | END 2021-01-16 16:25 | disposition home or self-care (01) | LOC: HO.LNP 16:24 | PROVIDERS: Visit Provider Hospitalist | DX: Z20.822 Contact with and (suspected) exposure to COVID-19 (principal); J01.90 Acute sinusitis, unspecified | CPT/HCPCS: U0003; U0005 ==

== ENCOUNTER 2021-03-11 12:52 | Outpatient (REF) | payer OTHER, SELFPAY ==
--- NOTE | ~2021-03-11 | US_ITS ---
EXAMINATION: US PELVIS CLINICAL INFORMATION: Ovarian cyst. COMPARISON: Ultrasound pelvis 12/01/2020 TECHNIQUE: Ultrasound of the pelvis is performed using both transabdominal and transvaginal transducers along with Doppler. Transvaginal imaging is performed due to inadequate visualization transabdominally. FINDINGS: The uterus is anteverted and anteflexed measuring 8.9 cm in length, 3.9 cm in AP, and 4.6 cm in transverse dimension. The endometrial thickness is 0.5 cm. There are at least 2 fibroids visualized. A 1.2 x 0.7 x 1.2 cm fibroid in the left fundus. Previously it measured 1.0 x 0.9 x 1.0 cm. There is a second hypoechoic lesion in the left body of the uterus measuring 0.9 x 0.9 x 0.9 cm. It is new since the previous study. Small nabothian cysts are seen in the cervix. The endometrial thickness is 0.5 cm. The right ovary measures 2.9 x 1.5 x 1.3 cm and volume 3.0 mL. There is an exophytic cyst measuring 1.4 x 1.1 x 1.0 cm. The left ovary is not visualized. There is a small amount of free fluid in the cul-de-sac. US/US pelvic and transvaginal IMPRESSION: Small fibroid in left uterus. Small nabothian cysts in the cervix. Exophytic cyst right ovary. Trace free fluid in the cul-de-sac.
== END 2021-03-11 12:53 | disposition home or self-care (01) ==
LOC: HO.US 12:52
PROVIDERS: PCP Physician Assistant; Visit Provider Obstetrics & Gynecology
DX: N83.299 Other ovarian cyst, unspecified side (principal)
CPT/HCPCS: 76830; 76856

== ENCOUNTER → 2021-03-25 11:57 | Outpatient (BNVA) | payer OTHER, SELFPAY | PROVIDERS: PCP Physician Assistant; Visit Provider Obstetrics & Gynecology ==

== ENCOUNTER 2021-05-04 10:12 | Outpatient (REF) | payer OTHER, SELFPAY ==
[2021-05-05 11:02] LABS: BV Int Neg Control Negative (Negative); BV Int Pos Control Positive (Positive)
== END 2021-05-04 10:13 | disposition home or self-care (01) ==
LOC: HO.LAB 10:12
PROVIDERS: Visit Provider Advanced Practice Midwife
DX: Z01.411 Encounter for gynecological examination (general) (routine) with abnormal findings (principal); N97.1 Female infertility of tubal origin; N75.0 Cyst of Bartholin's gland; N89.8 Other specified noninflammatory disorders of vagina
CPT/HCPCS: 87480; 87510; 87660

== ENCOUNTER 2021-08-20 10:32 | Outpatient (REF) | payer OTHER, SELFPAY ==
[2021-08-20 12:15] LABS: Hematocrit 42.9 % (37.0-47.0); Hemoglobin 14.3 g/dl (12.0-16.0); Mean Corpuscular HGB Conc 33.3 g/dl (31.0-35.0); Mean Corpuscular Hemoglobin 28.4 pg (27.0-33.0); Mean Corpuscular Volume 85.1 fL (80.0-98.0); Mean Platelet Volume 12.1 fL (9.4-12.3); Platelet Count 208 X10*3/uL (160-400); Red Blood Count 5.04 X10*6/uL (4.20-5.50); Red Cell Distribution Width 14.4 % (11.0-16.0); White Blood Count 8.5 X10*3/uL (4.8-10.8)
[2021-08-20 12:21] LABS: Estimated Average Glucose 117 mg/dL; Hemoglobin A1c % 5.7 %
[2021-08-20 12:48] LABS: Alanine Aminotransferase 45 U/L (0-31); Albumin Level 4.5 g/dL (3.5-5.0); Alkaline Phosphatase 81 U/L (39-117); Anion Gap 13 (12-20); Aspartate Amino Transferase 33 U/L (5-31); Bilirubin Total 0.6 mg/dL (0.0-1.0); Blood Urea Nitrogen 12 mg/dL (9-16); Calcium 9.6 mg/dL (8.4-10.2); Carbon Dioxide 29 mmol/L (22-29); Chloride 100 mmol/L (96-108); Cholesterol 243 mg/dL; Estimated Glomerular Filt Rate > 60; Glucose Fasting 100 mg/dL (60-99); HDL Cholesterol 39 mg/dL; LDL Cholesterol Calculated 166 mg/dl; Potassium 3.9 mmol/L (3.3-5.1); Sodium 138 mmol/L (135-145); Total Protein 7.3 g/dL (6.5-8.0); Triglycerides 190 mg/dL
[2021-08-20 13:00] LABS: Creatinine Urine 284.64 mg/dL
[2021-08-20 13:09] LABS: TSH reflex Free T4 1.25 uIU/mL (0.32-4.0)
== END 2021-08-20 10:33 | disposition home or self-care (01) ==
LOC: HO.LAB 10:32
PROVIDERS: PCP Physician Assistant; Visit Provider Physician Assistant
DX: I10 Essential (primary) hypertension (principal); E66.01 Morbid (severe) obesity due to excess calories; Z68.41 Body mass index [BMI] 40.0-44.9, adult
CPT/HCPCS: 36415; 80053; 80061; 82043; 83036; 84443; 85027

== ENCOUNTER 2021-10-24 08:59 | Emergency (ER) | payer OTHER, SELFPAY ==
[2021-10-24 09:05] VITALS: BP 162/105; PULSE 114; RESP 19; TEMP 37.5; O2SAT 98; BMI 44.4
[2021-10-24] MEDS: Lidocaine HCl 2 % MPF 5 ML VIAL INFILTRATI (10:35)
[2021-10-24] MEDS: Acetaminophen 325 MG TABLET 975 MG PO (10:35)
[2021-10-24] MEDS: Ondansetron ODT 4 MG TAB.RAPDIS TRANSLINGU (10:35)
[2021-10-24] MEDS: Lidocaine HCl 2 % MPF 5 ML VIAL SUBCUT (10:35)
[2021-10-24] MEDS: Morphine Sulfate 4 MG/ML CARTRIDGE IM (10:37)
--- NOTE | 2021-10-24 11:04 | ED.SKABFB ---
HPI - Skin/Abscess/Foreign Bdy General Chief complaint: Wound/Laceration Stated complaint: cyst on private area Time Seen by Provider: 10/24/21 10:03 Source: patient and family (Significant other) Mode of arrival: ambulatory Limitations: no limitations History of Present Illness HPI narrative: 31-year-old female with a past medical history of recurrent bartholin cyst where her OB has draining approximately 2-3 times required last drained approximately 1 year ago presenting to the ED with complaints of recurrent Bartholin cyst to the right aspect of the vagina for the past few days worse today despite using Sitz baths. She reports associated chills/rigors. Denies any measured fevers, thoughts of STDs, dysuria, hematuria, abnormal vaginal discharge, abdominal pain, flank pain or back pain or any other symptoms complaints or concerns at this time MD complaint: abscess/boil Onset (ago): day(s) (For the past few days worse) Location: genitals (Right aspect of the vaginal) Severity: similar to previous episodes Severity scale (1-10): >10 Quality: aching and constant Pain Consistency: constant Relieving factors: none Exacerbating factors: palpation, movement and other (Sitting even laying down) Context: other (History of recurrent Bartholin cyst) Associated symptoms: chills and rigors Treatments prior to arrival: other (Sitz bath) Related Data Home Medications Medication Instructions Recorded Confirmed fluticasone propionate 50 2 spray INTRANASAL DAILY 01/16/21 08/26/21 mcg/actuation nasal spray,suspension Previous Rx's Medication Instructions Recorded ibuprofen 600 mg tablet 600 mg PO TID PRN #60 tab 09/17/20 albuterol sulfate 2.5 mg (3 mL) INHALATION Q6H PRN 02/25/21 30 Days #360 ml hydrochlorothiazide 25 mg tablet 25 mg PO QAM #30 cap 02/26/21 miscellaneous medical supply #1 ea 05/04/21 albuterol sulfate 90 mcg/actuation 2 puff PO Q4H PRN 30 Days #6.7 g 08/26/21 aerosol inhaler ketoconazole 2 % topical cream 1 appl TOPICAL DAILY 30 Days #60 g 08/26/21 acetaminophen 500 mg tablet 1,000 mg PO QID PRN #14 tab 10/24/21 (Tylenol Extra Strength) cephalexin 500 mg capsule 500 mg PO Q6H 10 Days #40 cap 10/24/21 doxycycline monohydrate 100 mg 100 mg PO BID 10 Days #20 cap 10/24/21 capsule oxycodone 5 mg tablet 5 mg PO Q6H PRN #14 tab 10/24/21 Allergies Allergy/AdvReac Type Severity Reaction Status Date / Time amlodipine Allergy Unknown Hives Verified 08/26/21 08:58 amoxicillin [AMOXICILLIN] Allergy Unknown UNKNOWN Verified 08/26/21 08:58 aspirin [ASPIRIN] Allergy Unknown LOW Verified 08/26/21 08:58 PLATELETS, bleeding, ITP propranolol Allergy Unknown Hives Verified 08/26/21 08:58 Review of Systems Review of Systems: Constitutional : No Fever, No Chills ENT/Mouth : No sore throat, No Rhinorrhea Eyes: No Eye Pain, No Redness Cardiovascular : No Chest Pain, No SOB Respiratory : No Cough, No Sputum, No Wheezing Gastrointestinal : No Nausea, No Vomiting, No Diarrhea, positive abdominal pain, Genitourinary : + bartholin abscess, No irregular bleeding, No Dysuria, No Urinary Frequency, No pelvic pain Musculoskeletal : No Myalgias Skin : No rash Neuro : No Weakness, No Headache Psych : No Anxiety/Panic, No Depression Heme/Lymph: No bruising, No Lymphadenopathy Endocrine : No Polyuria, No Polydipsia Yes all other systems are reviewed and are negative [facility] Past Medical History Attestation statement: The following information was validated with the patient. Source: old records reviewed, obtained from family and nursing notes reviewed Medical History Asthma Bartholin gland cyst History of ITP Hypertension Obesity, morbid, BMI 40.0-49.9 Surgical History History of ectopic History of hemorrhoidectomy History of wisdom tooth extraction Family History Family History Father Hypertension Mother Hypertension Diabetes Sister Hypertension Fatty liver Maternal Grandmother Diabetes Hypertension Lung cancer Sister Prediabetes Maternal Grandfather Lung cancer Social History Social History Housing: Apartment Alcohol intake: current Alcohol intake frequency: does not drink Alcohol type: wine Patient Tobacco Use Status: Never used Tobacco Tobacco use type: Cigarette e-Cigarette/Vaping Use: Never Used Second Hand Smoke Exposure: No Use of substances other than those prescribed or required for medical reasons: Yes Substance Use Type: Marijuana Advance Directives: No Advance Directives Information Provided: No Current occupational status: unemployed Sexual orientation: Straight/Heterosexual Gender identity: Female Cognitive needs: No Hearing needs: No Vision needs: Yes (wear glasses) Physical Exam Vital Signs: Vital Signs: Last Vital Signs Temp 99.4 F 10/24/21 11:22 Pulse 98 10/24/21 11:22 Resp 16 10/24/21 11:22 BP 154/86 H 10/24/21 11:22 Pulse Ox 97 10/24/21 11:22 BMI result Body Mass Index 44.4 vital signs have been reviewed as normal and appeared to be correct. Blood pressure 162/105. Heart rate 114 Respiration rate normal. Temperature 99.5l. Oxygen saturation normal. Appearance: Alert. Oriented X3. No acute distress. Head: Normal external exam. Normocephalic. Atraumatic. Eyes: PERRLA. EOMI. Conjunctiva and sclera normal. Eyelids normal. ENT: EPharynx normal. Uvula midline. Moist mucous membranes. No trismus noted. No drooling noted. No muffled voice noted. Neck: Normal inspection. Neck supple. FROM. No adenopathy. Thyroid Normal. No meningeal signs. No neck mass noted. CVS: Normal heart rate and rhythm. Heart sound normal. No murmurs noted. Pulses normal throughout. Respiratory: No respiratory distress. Painless inspiration. Breath sounds normal. No wheezes/rales/rhonchi noted. Chest nontender. No accessory muscle usage noted or decreased air movement noted. Abdomen: Soft and nontender. Bowel sounds normal in all 4 quadrants. No distention noted. No organomegaly noted. No visible injury noted. : Supervised by YOU Johnson. Normal external appearance of urethra. No lesions/lacerations or discharge or tenderness noted. No abnormal vaginal discharge noted. No foreign bodies noted. No lesions noted. Although patient has a large only an abscess to the right vaginal area. Back: No CVA tenderness. Full range of motion noted. Skin: Skin warm and dry. Normal skin color. Normal skin turgor. No rashes/lesions/lacerations noted. Extremities: No lower extremity edema. Extremities exhibit normal range of motion. Extremities nontender. Neuro: Oriented X 3. No motor deficit. No sensory deficit. Reflexes normal. Course Course Course Narrative: Patient now status post I&D bartholin cyst. Patient tolerated procedure well appear no complication we attempted to place the Bartholin Catheter although it fell out therefore at this time will DC home with doxycycline and Keflex along with pain medication instructions to follow-up with her PCP and OBGYN and to return if any new or worsening symptoms. Patient understands agrees with this plan MDM - Skin/Abscess/Foreign Bdy Medical Records Attestation: I reviewed the patient's medical records. Procedures Abscess I/D Site: other (bartholin/vaginal area) Side (if applicable): right Local Anesthetic: lidocaine 2% Amount of anesthesia used (mL): 10 Technique: needle aspiration and incised with blade Amount of fluid expressed (mL): 30 Sent for culture/gram staining?: No Irrigation: Yes Packing used?: none (I attempted of Word catheter although it fell out) Complications: other (No complications) Critical Care Time Critical Care Time Critical Care Time: Yes Total Critical Care Time: 60 Attestation: I personally attest to this time spent taking care of the patient Discharge Plan Discharge Clinical Impression: Bartholin's gland abscess Patient Disposition: Home, Self-Care Instructions: Abscess (ED), Abscess Follow-up (ED), Incision and Drainage (ED) Prescriptions: New acetaminophen [Tylenol Extra Strength] 500 mg tablet 1,000 mg PO QID PRN (Reason: fever or pain) Qty: 14 0RF doxycycline monohydrate 100 mg capsule 100 mg PO BID 10 Days Qty: 20 0RF cephalexin 500 mg capsule 500 mg PO Q6H 10 Days Qty: 40 0RF oxycodone 5 mg tablet 5 mg PO Q6H PRN (Reason: pain) Qty: 14 0RF No Action hydrochlorothiazide 25 mg tablet 25 mg PO QAM Qty: 30 4RF ibuprofen 600 mg tablet 600 mg PO TID PRN (Reason: pain) Qty: 60 0RF fluticasone propionate 50 mcg/actuation spray,suspension 2 spray intranasal DAILY 0RF albuterol sulfate 2.5 mg /3 mL (0.083 %) solution for nebulization 2.5 mg inhalation Q6H PRN (Reason: shortness of breath or wheezing) 30 Days Qty: 360 3RF albuterol sulfate 90 mcg/actuation HFA aerosol inhaler 2 puff PO Q4H PRN (Reason: bronchospasm) 30 Days Qty: 6.7 3RF ketoconazole 2 % cream 1 appl topical DAILY 30 Days Qty: 60 1RF (DME) miscellaneous medical supply Misc See Rx Instructions miscellaneous .MEDSUPPLY Qty: 1 0RF Rx Instructions: As directed Referrals: Rajesh Caraballo PA-C [Primary Care Provider] - 2 days Hu Vázquez MD [Physician] - 2 days Stand Alone Forms: Work/School Release
[2021-10-24 11:22] VITALS: BP 154/86; PULSE 98; RESP 16; TEMP 37.4; O2SAT 97
[2021-10-24] MEDS: cephALEXin 500 MG CAPSULE PO (11:22)
[2021-10-24] MEDS: oxyCODONE HCl Immed Release 5 MG TABLET PO (11:22)
== END 2021-10-24 11:33 | disposition home or self-care (01) ==
PROVIDERS: Emergency Provider Student in an Organized Health Care Education/Training Program; PCP Physician Assistant
DX: N75.0 Cyst of Bartholin's gland (principal); Z79.899 Other long term (current) drug therapy
CPT/HCPCS: 56420; 96372; 99284; J2270

== ENCOUNTER → 2021-10-28 08:56 | Outpatient (BNVA) | payer OTHER, SELFPAY | PROVIDERS: PCP Physician Assistant; Visit Provider Advanced Practice Midwife | DX: N75.1 Abscess of Bartholin's gland (principal) | CPT/HCPCS: 99212 ==

== ENCOUNTER 2022-02-14 16:49 | Emergency (ER) | payer OTHER, SELFPAY ==
--- NOTE | ~2022-02-14 | CT_ITS ---
EXAMINATION: CT HEAD WITHOUT CONTRAST CLINICAL INFORMATION: Headache with left eye pain COMPARISON: Head CT 08/03/2019 TECHNIQUE: Imaging was performed from the skull base to vertex without intravenous administration of contrast. This CT examination was performed using dose optimization techniques as appropriate, variously including the following: *Automated exposure control *Adjustment of mA and/or kV according to patient size (this includes techniques or standardized protocols for targeted exams where dose is matched to indication/reason for exam; i.e. extremities or head) *Use of iterative reconstruction technique Total exam dose length product: 683 mGy-cm FINDINGS: No intra or extra-axial fluid collection, hemorrhage, or mass. No ventriculomegaly. No midline shift or herniation. Basal cisterns are patent. Beck-white matter differentiation is maintained. No territorial encephalomalacia. No significant volume loss. There is no abnormal attenuation within the brain parenchyma. No calvarial fracture or soft tissue abnormality. Complete opacification of mild expansion of the left maxillary sinus. Mucosal thickening in the left ethmoid air cells. Mastoid air cells normally aerated. CT/CT head/brain wo IV con IMPRESSION: 1. No acute intracranial pathology. 2. 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
[2022-02-14 17:43] VITALS: BP 182/116; PULSE 99; RESP 18; TEMP 36.7; O2SAT 100; BMI 44.2
[2022-02-14 18:00] LABS: MANUAL DIFF FLAG NO
[2022-02-14 18:01] LABS: Basophils Absolute Auto 0.1 X10*3/uL (0.0-0.2); Basophils Percent Auto 0.5 % (0-2); Eosinophils Absolute Auto 0.1 X10*3/uL (0.0-0.4); Eosinophils Percent Auto 0.9 % (0-4); Hemoglobin 13.8 g/dl (12.0-16.0); Imm Gran Abs Auto 0.05 X10*3/uL (0.00-0.03); Imm Gran Pct Auto 0.3 % (0.0-0.4); Lymphocytes Absolute Auto 1.5 X10*3/uL (1.2-4.9); Mean Corpuscular HGB Conc 32.1 g/dl (31.0-35.0); Mean Corpuscular Hemoglobin 26.2 pg (27.0-33.0); Mean Corpuscular Volume 81.6 fL (80.0-98.0); Mean Platelet Volume 10.8 fL (9.4-12.3); Monocytes Percent Auto 6.5 % (2-11); Neutrophils Absolute Auto 11.9 x10*3/uL (2.0-8.3); Neutrophils Percent Auto 81.8 % (45-73); Platelet Count 284 X10*3/uL (160-400); Red Blood Count 5.27 X10*6/uL (4.20-5.50); Red Cell Distribution Width 13.1 % (11.0-16.0); White Blood Count 14.6 X10*3/uL (4.8-10.8)
[2022-02-14 18:22] LABS: Alanine Aminotransferase 28 U/L (0-31); Albumin Level 4.6 g/dL (3.5-5.0); Alkaline Phosphatase 67 U/L (39-117); Anion Gap 18 (12-20); Aspartate Amino Transferase 21 U/L (5-31); Bilirubin Total 0.4 mg/dL (0.0-1.0); Blood Urea Nitrogen 10 mg/dL (9-16); Calcium 9.1 mg/dL (8.4-10.2); Carbon Dioxide 25 mmol/L (22-29); Chloride 100 mmol/L (96-108); Creatinine Clr Calc Pharmacy 96.2; Estimated Glomerular Filt Rate > 60; Glucose Random 111 mg/dL (60-115); Potassium 3.8 mmol/L (3.3-5.1); Sodium 139 mmol/L (135-145)
--- NOTE | 2022-02-14 18:56 | ED_ITS ---
HPI - General Adult General Chief complaint: General Medical Stated complaint: L side facial swelling Time Seen by Provider: 02/14/22 17:49 Source: patient Mode of arrival: ambulatory Limitations: no limitations History of Present Illness HPI narrative: Patient is a 31 year old female presenting to the emergency department today with left sided facial pressure and pain. Patient states that starting this morning she began to have left sided facial pressure and pain. Patient denies any dizziness, lightheadedness, abdominal pain, nausea, vomiting, fever, chills, blurry vision, double vision, loss of vision, chest pain, difficulty breathing, shortness of breath, back pain, night sweats, pain with urination, increased urinary frequency, increased urinary urgency, blood in her urine or stool, syncope or a near syncopal episode, recent trauma or falls, bowel incontinence, bladder incontinence, bowel retention, bladder retention, or any other complaints at this time. Onset (ago): hour(s) Location: face and left Radiation: non-radiation Severity: mild Severity scale (1-10): 2 Quality: dull Pain Consistency: constant Relieving factors: none Exacerbating factors: none Associated symptoms: denies other symptoms Treatments prior to arrival: none Related Data Home Medications Medication Instructions Recorded Confirmed fluticasone propionate 50 2 spray intranasal DAILY 01/16/21 11/26/21 mcg/actuation nasal spray,suspension vitamins no.121-iron 28 tab PO 02/09/22 mg-folic acid 800 mcg tablet Previous Rx's Medication Instructions Recorded ibuprofen 600 mg tablet 600 mg PO TID PRN pain #60 tabs 09/17/20 albuterol sulfate 2.5 mg/3 mL 2.5 mg (3 mL) inhalation Q6H PRN 02/25/21 (0.083 %) solution for nebulization shortness of breath or wheezing 30 days #360 mL hydrochlorothiazide 25 mg tablet 25 mg PO QAM #30 caps 02/26/21 miscellaneous medical supply #1 ea 05/04/21 albuterol sulfate 90 mcg/actuation 2 puff PO Q4H PRN bronchospasm 30 08/26/21 aerosol inhaler days #6.7 grams acetaminophen 500 mg tablet 1,000 mg PO QID PRN fever or pain 10/24/21 (Tylenol Extra Strength) #14 tabs doxycycline monohydrate 100 mg 100 mg PO BID 10 days #20 caps 10/24/21 capsule oxycodone 5 mg tablet 5 mg PO Q6H PRN pain #14 tabs 10/24/21 clotrimazole-betamethasone 1 1 appl topical BID 30 days #45 11/26/21 %-0.05 % topical cream grams ketoconazole 2 % topical cream 1 appl topical DAILY 30 days #60 11/26/21 grams nifedipine 30 mg tablet,extended 30 mg PO DAILY 30 days #30 tabs 11/26/21 release diphenhydramine HCl 25 mg tablet 25 mg PO TID PRN allergy symptoms 02/09/22 (Benadryl Allergy) #20 tabs prednisone 20 mg tablet 40 mg PO DAILY 5 days #10 tabs 02/09/22 doxycycline hyclate 100 mg tablet 100 mg PO BID 7 days #14 tabs 02/14/22 Allergies Allergy/AdvReac Type Severity Reaction Status Date / Time amlodipine Allergy Unknown Hives Verified 02/14/22 17:43 amoxicillin [AMOXICILLIN] Allergy Unknown UNKNOWN Verified 02/14/22 17:43 aspirin [ASPIRIN] Allergy Unknown LOW Verified 02/14/22 17:43 PLATELETS, bleeding, ITP propranolol Allergy Unknown Hives Verified 02/14/22 17:43 Review of Systems Constitutional: Constitutional: Reports no additional constitutional complaints, Denies chills, Denies fever(s) and Denies night sweats Eyes: Eyes: Reports no additional eye complaints, Denies blurry vision, Denies change in vision, Denies diplopia, Denies eye discharge, Denies loss of vision and Denies eye pain ENT: Denies dizziness Comments: left sided facial pressure and pain Cardiovascular: Cardiovascular: Reports no additional cardiovascular complaints, Denies chest pain, Denies lightheadedness, Denies Loss of Co nsciousness and Denies dyspnea Respiratory: Respiratory: Reports no additional respiratory complaints and Denies dyspnea Gastrointestinal: Gastrointestinal: Reports no additional gastrointestinal complaints, Denies abdominal pain, Denies melena, Denies hematochezia, Denies change in bowel habits and Denies change in stool character Genitourinary: Genitourinary: Denies hematuria, Denies urinary frequency, Denies dysuria, Denies urinary incontinence, Denies urinary hesitancy and Denies urinary urgency Musculoskeletal: Musculoskeletal: Reports no additional musculoskeletal complaints, Denies numbness and Denies tingling Neurologic: Denies dizziness, Denies loss of vision, Denies numbness and Denies tingling Psychiatric: Psychiatric: Reports no additional psychiatric complaints Endocrine: Endocrine: Reports no additional endocrine complaints Hematologic/Lymphatic: Hematologic/Lymphatic: Reports no additional hematologic/lymphatic complaints Allergic/Immunologic: Allergic/Immunologic: Reports no additional allergic/immunologic complaints [facility] Past Medical History Attestation statement: The following information was validated with the patient. Source: old records reviewed Medical History Asthma Bartholin gland cyst History of ITP Hypertension Obesity, morbid, BMI 40.0-49.9 Surgical History History of ectopic History of hemorrhoidectomy History of wisdom tooth extraction Family History Family History Father Hypertension Mother Hypertension Diabetes Sister Hypertension Fatty liver Maternal Grandmother Diabetes Hypertension Lung cancer Sister Prediabetes Maternal Grandfather Lung cancer Social History Social History Housing: Apartment Alcohol intake: current Alcohol intake frequency: does not drink Alcohol type: wine Patient Tobacco Use Status: Never used Tobacco Tobacco use type: Cigarette e-Cigarette/Vaping Use: Never Used Second Hand Smoke Exposure: No Substance Use Type: Marijuana Advance Directives: No Advance Directives Information Provided: No Current occupational status: unemployed Sexual orientation: Straight/Heterosexual Gender identity: Female Cognitive needs: No Hearing needs: No Vision needs: Yes (wear glasses) Physical Exam ED Vital Signs: Vital Signs - 24 hr 02/14/22 17:43 Temperature 98.1 F Pulse Rate 99 Respiratory Rate 18 Blood Pressure 182/116 H Pulse Oximetry 100 Oxygen Delivery Method Room Air BMI result Body Mass Index 44.2 Const General: cooperative, no acute distress, alert and awake Nutritional Appearance: well nourished Orientation/consciousness: patient oriented x3 Limitations: no limitations HENMT Head: Yes normal to inspection and Yes atraumatic Ears: hearing grossly normal bilaterally and external ears normal General nose exam: Normal external nose present, no nasal discharge noted and no epistaxis Face and sinus: Yes normal facial exam, No abrasion and No laceration Mouth: Normal oral and palatal mucosa present, no drooling and no muffled voice Eyes General: appearance normal, both eyes and all related structures Periorbital: periorbital findings normal Eyelids: Yes eyelids normal Conjunctivae: conjunctivae normal Pupils: Equal, round and reactive pupils present EOM: EOMs intact bilaterally Neck Neck: Yes normal visual inspection, Yes full ROM and Yes no lymphadenopathy Chest Chest palpation & inspection: normal inspection of the chest Resp Effort & Inspection: normal respiratory effort and able to speak in complete sentences Auscultation: clear to auscultation bilaterally Cardio Rate: regular rate Rhythm: regular rhythm GI Inspection: Yes normal to inspection Neuro General: patient oriented x3 and moves all extremities Cranial nerves: Yes Equal, round and reactive pupils present Cognition (Neuro): normal cognition Motor exam (neuro): 5/5 motor strength present throughout Sensory Exam: Normal double simultaneous stimulation for sensation Coordination: [id number] test normal Extrem General: Yes normal to inspection, Yes full ROM and Yes capillary refill normal Psych Appearance: grossly normal Mental Status: mental status grossly normal Affect: normal affect Attitude: cooperative Thought process: Normal thought process present Thought content: Normal thought content present Insight: Good insight present (Psych) Medical Decision Making [facility] Narrative Medical decision making narrative: Patient is a 31 year old female presenting to the emergency department today with left sided facial pressure. Patient's physical exam was unremarkable. Patient's blood work showed an elevated WBC count however, the patient is currently on prednisone. Patient's head CT showed left sinus disease and a left sinus mucocele. I explained my physical exam findings as well as all test results to the patient. I answered all questions asked by the patient. I stressed the importance of the patient taking her medication as prescribed. I stressed the importance of the patient following up with her primary care pr ovider and an ENT. I stressed the importance of the patient returning to the emergency department immediately if her symptoms were to worsen or if she were to develop any dizziness, shortness of breath, difficulty breathing, chest pain, blurry vision, loss of vision, nausea, vomiting, abdominal pain, fever, chills, back pain, or any other complaints. Patient verbalized agreement and understanding with this treatment plan and discharge. Medical Records Medical records reviewed: Yes I reviewed the patient's medical records. Lab Data Lab results reviewed: Yes I reviewed the patient's lab results. Result diagrams: 02/14/22 17:54 02/14/22 17:54 Labs: Lab Results 02/14/22 02/14/22 Range/Units 17:54 17:54 WBC 14.6 H (4.8-10.8) X10*3/uL RBC 5.27 (4.20-5.50) X10*6/uL Hgb 13.8 (12.0-16.0) g/dl Hct 43.0 (37.0-47.0) % MCV 81.6 (80.0-98.0) fL MCH 26.2 L (27.0-33.0) pg MCHC 32.1 (31.0-35.0) g/dl RDW 13.1 (11.0-16.0) % Plt Count 284 D (160-400) X10*3/uL MPV 10.8 (9.4-12.3) fL Immature Gran % (Auto) 0.3 (0.0-0.4) % Neut % (Auto) 81.8 H (45-73) % Lymph % (Auto) 10.0 L (20-40) % Tyler % (Auto) 6.5 (2-11) % Eos % (Auto) 0.9 (0-4) % Baso % (Auto) 0.5 (0-2) % Lymph # (Auto) 1.5 (1.2-4.9) X10*3/uL Tyler # (Auto) 1.0 (0.1-1.2) X10*3/uL Eos # (Auto) 0.1 (0.0-0.4) X10*3/uL Baso # (Auto) 0.1 (0.0-0.2) X10*3/uL Abs Immat Gran (auto) 0.05 H (0.00-0.03) X10*3/uL Absolute Neuts (auto) 11.9 H (2.0-8.3) x10*3/uL Absolute Nucleated RBC 0.000 (0.0-0.012) X10*3/uL Nucleated RBC % (auto) 0.0 (0.0-0.2) /100WBC Sodium 139 (135-145) mmol/L Potassium 3.8 (3.3-5.1) mmol/L Chloride 100 (96-108) mmol/L Carbon Dioxide 25 (22-29) mmol/L Anion Gap 18 (12-20) BUN 10 (9-16) mg/dL Creatinine 0.98 (0.5-1.4) mg/dL Estim Creat Clear Calc 96.2 Estimated GFR > 60 Random Glucose 111 (60-115) mg/dL Calcium 9.1 (8.4-10.2) mg/dL Magnesium 2.0 (1.6-2.6) mg/dL Total Bilirubin 0.4 (0.0-1.0) mg/dL AST 21 (5-31) U/L ALT 28 (0-31) U/L Alkaline Phosphatase 67 (39-117) U/L Total Protein 7.0 (6.5-8.0) g/dL Albumin 4.6 (3.5-5.0) g/dL Imaging Data CT scan - head: Attestation: I personally reviewed and interpreted this imaging study as follows: My impression: Left sided sinus disease Radiologist's impression: EXAMINATION: CT HEAD WITHOUT CONTRAST CLINICAL INFORMATION: Headache with left eye pain? COMPARISON: Head CT 08/03/2019 TECHNIQUE: Imaging was performed from the skull base to vertex without intravenous administration of contrast. This CT examination was performed using dose optimization techniques as appropriate, variously including the following: *Automated exposure control *Adjustment of mA and/or kV according to patient size (this includes techniques or standardized protocols for targeted exams where dose is matched to indication/reason for exam; i.e. extremities or head) *Use of iterative reconstruction technique Total exam dose length product: 683 mGy-cm FINDINGS: No intra or extra-axial fluid collection, hemorrhage, or mass. No ventriculomegaly. No midline shift or herniation. Basal cisterns are patent. Beck-white matter differentiation is maintained. No territorial encephalomalacia. ?No significant volume loss. There is no abnormal attenuation within the brain parenchyma. No calvarial fracture or soft tissue abnormality. ?Complete opacification of mild expansion of the left maxillary sinus. Mucosal thickening in the left ethmoid air cells. Mastoid air cells normally aerated. CT/CT head/brain wo IV con IMPRESSION: ? 1. No acute intracranial pathology. 2. 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 ? Dictated By: Naveen Boateng Signed By: Electronically signed by Naveen?Kilo 02/14/22 1553 Discharge Plan Discharge Clinical Impression: Sinusitis, Mucocele of nasal sinus Patient Disposition: Home, Self-Care Instructions: Sinusitis (ED) Additional Instructions: Follow up with your primary care provider. Return to the emergency department immediately if your symptoms worsen or if you develop any dizziness, shortness of breath, difficulty breathing, chest pain, blurry vision, loss of vision, nausea, vomiting, abdominal pain, fever, chills, back pain, or any other complaints. Prescriptions: New doxycycline hyclate 100 mg tablet 100 mg PO BID 7 Days Qty: 14 0RF No Action hydrochlorothiazide 25 mg tablet 25 mg PO QAM Qty: 30 4RF Hold Instructions: Dose Change ibuprofen 600 mg tablet 600 mg PO TID PRN (Reason: pain) Qty: 60 0RF acetaminophen [Tylenol Extra Strength] 500 mg tablet 1,000 mg PO QID PRN (Reason: fever or pain) Qty: 14 0RF doxycycline monohydrate 100 mg capsule 100 mg PO BID 10 Days Qty: 20 0RF oxycodone 5 mg tablet 5 mg PO Q6H PRN (Reason: pain) Qty: 14 0RF fluticasone propionate 50 mcg/actuation spray,suspension 2 spray intranasal DAILY albuterol sulfate 2.5 mg /3 mL (0.083 %) solution for nebulization 2.5 mg inhalation Q6H PRN (Reason: shortness of breath or wheezing) 30 Days Qty: 360 3RF albuterol sulfate 90 mcg/actuation HFA aerosol inhaler 2 puff PO Q4H PRN (Reason: bronchospasm) 30 Days Qty: 6.7 3RF nifedipine 30 mg tablet extended release 30 mg PO DAILY 30 Days Qty: 30 3RF clotrimazole-betamethasone 1-0.05 % cream 1 appl topical BID 30 Days Qty: 45 1RF ketoconazole 2 % cream 1 appl topical DAILY 30 Days Qty: 60 1RF PNV no.[id number] acid 28 mg iron- 800 mcg tablet PO prednisone 20 mg tablet 40 mg PO DAILY 5 Days Qty: 10 0RF diphenhydramine HCl [Benadryl Allergy] 25 mg tablet 25 mg PO TID PRN (Reason: allergy symptoms) Qty: 20 0RF (DME) miscellaneous medical supply Misc See Rx Instructions miscellaneous .MEDSUPPLY Qty: 1 0RF Rx Instructions: As directed Referrals: Rajesh Caraballo PA-C [Primary Care Provider] - Aidan Nevarez [Physician] - (Call to establish and follow up with an ENT specialist.) Interventions: ED Discharge Assessment Last Done: 02/14/22 19:01 Discharge Date/Time: 02/14/22 19:02 Print Language: [place]
== END 2022-02-14 19:02 | disposition home or self-care (01) ==
PROVIDERS: Physician Assistant Medical; Emergency Provider Internal Medicine; PCP Physician Assistant
DX: J32.9 Chronic sinusitis, unspecified (principal); R51.9 Headache, unspecified; H57.12 Ocular pain, left eye; J34.1 Cyst and mucocele of nose and nasal sinus; Z79.899 Other long term (current) drug therapy
CPT/HCPCS: 36415; 70450; 80053; 83735; 85025; 99282; 99284

== ENCOUNTER 2022-05-06 11:31 | Outpatient (REF) | payer OTHER, SELFPAY ==
[2022-05-07 12:28] LABS: BV Int Neg Control Negative (Negative); BV Int Pos Control Positive (Positive)
== END 2022-05-06 11:32 | disposition home or self-care (01) ==
LOC: HO.LNP 11:31
PROVIDERS: Visit Provider Advanced Practice Midwife
DX: Z01.419 Encounter for gynecological examination (general) (routine) without abnormal findings (principal)
CPT/HCPCS: 87480; 87510; 87660

== ENCOUNTER 2022-12-23 10:37 | Outpatient (AMB) | payer OTHER, SELFPAY ==
[2022-12-23 10:38] VITALS: BP 142/86; PULSE 115; O2SAT 97; BMI 44.3
--- NOTE | 2022-12-23 10:38 | MHC.PC.OV ---
Vital Signs 12/23/22 10:38 Height 5 ft 2 in Weight 242 lb BMI 44.3 BP 142/86 H Blood Pressure Location Lt brachial Position Sitting Pulse 115 H Pulse Source Pulse Oximeter Temp Source Skin Pulse Oximetry (%) 97 Oxygen Delivery Method Room Air Intake Visit Reasons: Rash Intake Note: pt states rash on bilateral arms and hands [id number], no itching Hot Dip Galvanizer Required: No Allergies amlodipine Allergy (Unknown, Verified 12/23/22 11:00) Hives amoxicillin [AMOXICILLIN] Allergy (Unknown, Verified 12/23/22 11:00) UNKNOWN aspirin [ASPIRIN] Allergy (Unknown, Verified 12/23/22 11:00) LOW PLATELETS, bleeding, ITP propranolol Allergy (Unknown, Verified 12/23/22 11:00) Hives Medication List - Last Reconciled 12/23/22 by REED Palma acetaminophen (Tylenol Extra Strength) 1,000 mg (2 x 500 mg) PO QID PRN albuterol sulfate 2.5 mg (3 mL) inhalation Q6H PRN 30 days albuterol sulfate 90 mcg/actuation 2 puffs PO Q4H PRN 30 days blood sugar diagnostic (FreeStyle Lite Strips) once daily fluticasone propionate 50 mcg/actuation 2 sprays intranasal DAILY metformin 500 mg PO DAILY miscellaneous medical supply As directed nifedipine ER 60 mg PO DAILY 90 days PNV [id number] acid 28 mg iron- 800 mcg tabs PO Tobacco use date assessed: 12/23/22 HPI Rash HPI Details Patient is a 32-year-old female who presents today for an office visit due to rash on her arms and right leg for the past 2 months. Patient of FELISHA Caraballo. medical history significant for obesity, hypertension, thrombocytopenia, diabetes type 2 among others. Patient denies changes in shampoo, body wash, new detergent, new medications, or any bug bites. No new foods. Patient reports that this rash is not improving, rash is not itchy, not painful. She denies fever or chills, no shortness of breath or chest pain. Did not use anything for this rash. Reports similar rash in the past and she did have biopsy of this rash which did not find anything. Patient reports history of eczema. [facility] Medical History Asthma Bartholin gland cyst History of ITP Hypertension Obesity, morbid, BMI 40.0-49.9 Surgical History H/O removal of cyst History of ectopic History of hemorrhoidectomy History of wisdom tooth extraction Family History Father Hypertension Mother Hypertension Diabetes Sister Hypertension Fatty liver Maternal Grandmother Diabetes Hypertension Lung cancer Sister Prediabetes Maternal Grandfather Lung cancer Social History Housing: Apartment Alcohol intake: current Alcohol intake frequency: does not drink Alcohol type: wine Patient Tobacco Use Status: Former Tobacco user Quit Date: 2011 Tobacco use type: Cigarette e-Cigarette/Vaping Use: Never Used Second Hand Smoke Exposure: No Substance Use Type: Marijuana service: No Current occupational status: unemployed Sexual orientation: Straight/Heterosexual Gender identity: Female Cognitive needs: No Hearing needs: No Vision needs: Yes (wear glasses) Female Reproductive History Menstrual Age of Menarche: 8 Questionnaire Thrive Questionnaire Date Thrive assessed: 08/31/22 AUDIT C Alcohol Use Questionnaire (AUDIT-C) 1. How often do you have a drink containing alcohol?: Monthly or less 2. How many drinks containing alcohol do you have on a typical day when you are drinking?: 1 or 2 Total Score: 1 Score Reviewed/Action Taken: No SHANNEN-7 AMB Questionnaire SHANNEN-7 Date SHANNEN - 7 assessed: 08/31/22 Source: Developed by Drs. Jass Sandoval, Anahi Johnston, Isai Kumari and colleagues, with an educational kanu from [employer]. Review of Systems Const Denies body aches, Denies chills, Denies fever(s) and Denies headache(s) Eyes Denies change in vision ENT Denies dizziness, Denies otalgia, Denies headache(s), Denies nasal discharge, Denies sinus pain and Denies sore throat Card Denies chest pain, Denies edema, Denies lightheadedness and Denies dyspnea Resp Denies cough, Denies dyspnea and Denies wheezing GI Denies constipation, Denies diarrhea, Denies nausea and Denies vomiting Denies dysuria Musc Denies myalgias Skin/Breast Reports rash Neuro Denies dizziness and Denies headache(s) Aller/Immun Denies wheezing Physical exam (Primary Care) Vital Signs: Last Vital Signs Pulse 115 H 12/23/22 10:38 BP 142/86 H 12/23/22 10:38 Pulse Ox 97 12/23/22 10:38 Oxygen Delivery Method Room Air 12/23/22 10:38 BMI result Body Mass Index 44.3 Tobacco/Smoking Status: Tobacco use Status Tobacco use date assessed 12/23/22 12/23/22 10:58 Patient Tobacco Use Status Former Tobacco user 12/23/22 10:58 Tobacco use type Cigarette 12/23/22 10:58 e-Cigarette/Vaping Use Never Used 12/23/22 10:58 Thrive Assessment: Date of Thrive Assessment Date Thrive assessed 08/31/22 12/23/22 10:58 Const General: cooperative and no acute distress Orientation/consciousness: patient oriented x3 HENMT Head: Yes normocephalic and Yes atraumatic Mouth: oropharynx normal and moist mucous membranes Throat: Yes posterior oropharynx normal Eyes General: appearance normal, both eyes and all related structures Pupils: Equal, round and reactive pupils present Neck Neck: Yes normal visual inspection, Yes full ROM and Yes no lymphadenopathy Resp Effort & Inspection: normal respiratory effort and able to speak in complete sentences Auscultation: clear to auscultation bilaterally, no crackles, no rales, no rhonchi and no wheezes Cardio Rate: regular rate Rhythm: regular rhythm Heart sounds: S1 normal heart sound present and S2 normal heart sound present GI Auscultation: normal bowel sounds Skin Other: Bilateral arms with moderate amount of circular slightly raised erythematous areas about 5mm-1cm diameter, center slightly digital hardware design engineer in color, nontender, no discharge, skin is intact, the same 1 lesion noted to right leg Neuro General: patient oriented x3 Cranial nerves: Yes Equal, round and reactive pupils present Gait exam (Neuro): Normal gait present Extrem General: Yes full ROM and No edema Assessment and Plan Assessment & Plan (1) Rash: Code(s): R21 - Rash and other nonspecific skin eruption Plan: Bilateral arms with moderate amount of circular slightly raised erythematous areas about 5mm-1cm diameter, center slightly digital hardware design engineer in color, nontender, no discharge, skin is intact, the same 1 lesion noted to right leg. Patient reports that rash is not improving, she had this for the past 2 months. Will refer to Dermatology for an evaluation and treatment. Will treat with prednisone taper. Patient agreed with the plan. Signs and symptoms reviewed when to notify provider or go to the emergency department. Keep appointment with PCP as scheduled or follow-up sooner as needed. Orders: Referrals Dermatology Referral R21 - Rash and other nonspecific skin eruption Medications: New prednisone Take 3 tablets for 3 days then, Take 2 tablets 3 days then, Take 1 tablet 3 days and stop 10 mg PO DAILY 18 tabs 0RF R21 - Rash and other nonspecific skin eruption Coding Level of Care Code Est Pt Level 3 (02120) Diagnoses Rash R21
== END 2022-12-23 13:11 | disposition home or self-care (01) ==
PROVIDERS: PCP Physician Assistant; Visit Provider Nurse Practitioner Family
DX: R21 Rash and other nonspecific skin eruption (principal)
CPT/HCPCS: 99213

== ENCOUNTER 2023-02-23 10:22 | Outpatient (REF) | payer OTHER, SELFPAY ==
[2023-02-23 11:44] LABS: Hemoglobin 13.9 g/dl (12.0-16.0); Mean Corpuscular HGB Conc 33.1 g/dl (31.0-35.0); Mean Corpuscular Hemoglobin 27.4 pg (27.0-33.0); Mean Corpuscular Volume 82.7 fL (80.0-98.0); Mean Platelet Volume 11.7 fL (9.4-12.3); Platelet Count 278 X10*3/uL (160-400); Red Blood Count 5.08 X10*6/uL (4.20-5.50); White Blood Count 9.7 X10*3/uL (4.8-10.8)
[2023-02-23 12:29] LABS: Alanine Aminotransferase 41 U/L (0-31); Albumin Level 4.4 g/dL (3.5-5.0); Alkaline Phosphatase 88 U/L (39-117); Anion Gap 13 (12-20); Aspartate Amino Transferase 33 U/L (5-31); Bilirubin Total 0.7 mg/dL (0.0-1.0); Blood Urea Nitrogen 11 mg/dL (9-16); Calcium 9.2 mg/dL (8.4-10.2); Carbon Dioxide 26 mmol/L (22-29); Chloride 103 mmol/L (96-108); Cholesterol 201 mg/dL (<200); Estimated Glomerular Filt Rate > 60; Glucose Fasting 122 mg/dL (60-99); HDL Cholesterol 41 mg/dL (>40); LDL Cholesterol Calculated 128 mg/dL (<100); Potassium 3.9 mmol/L (3.3-5.1); Sodium 138 mmol/L (135-145); Total Protein 7.1 g/dL (6.5-8.0); Triglycerides 160 mg/dL (<150)
[2023-02-23 12:35] LABS: TSH reflex Free T4 0.95 uIU/mL (0.32-4.0)
== END 2023-02-23 10:23 | disposition home or self-care (01) ==
LOC: HO.LAB 10:22
PROVIDERS: PCP Physician Assistant; Visit Provider Physician Assistant
DX: I10 Essential (primary) hypertension (principal); E66.01 Morbid (severe) obesity due to excess calories; Z68.41 Body mass index [BMI] 40.0-44.9, adult
CPT/HCPCS: 36415; 80053; 80061; 84443; 85027

== ENCOUNTER 2023-02-28 09:55 | Outpatient (AMB) | payer OTHER, SELFPAY ==
[2023-02-28 10:01] VITALS: BP 140/72; PULSE 108; RESP 16; O2SAT 98; BMI 45.4
--- NOTE | 2023-02-28 10:01 | MHC.PC.OV ---
Vital Signs 02/28/23 10:01 Height 5 ft 2 in Weight 248 lb BMI 45.4 BP 140/72 H Blood Pressure Location Lt brachial Position Sitting Respiration 16 Pulse 108 H Pulse Source Pulse Oximeter Pulse Oximetry (%) 98 Oxygen Delivery Method Room Air Intake Visit Reasons: f/u HTN Survey Compiler Required: No Accompanied by: Spouse- Jaiden Allergies amlodipine Allergy (Unknown, Verified 02/28/23 10:11) Hives amoxicillin [AMOXICILLIN] Allergy (Unknown, Verified 02/28/23 10:11) UNKNOWN aspirin [ASPIRIN] Allergy (Unknown, Verified 02/28/23 10:11) LOW PLATELETS, bleeding, ITP propranolol Allergy (Unknown, Verified 02/28/23 10:11) Hives Medication List - Last Reconciled 02/28/23 by Rajesh Caraballo PA-C acetaminophen (Tylenol Extra Strength) 1,000 mg (2 x 500 mg) PO QID PRN albuterol sulfate 2.5 mg (3 mL) inhalation Q6H PRN 30 days albuterol sulfate 90 mcg/actuation 2 puffs PO Q4H PRN 30 days blood sugar diagnostic (FreeStyle Lite Strips) once daily miscellaneous medical supply As directed nifedipine ER 60 mg PO DAILY 90 days Tobacco use date assessed: 12/23/22 Dental Screening Dental Screen Date: 02/28/23 Did you have a dental visit in the last 12 months?: Yes Did you have a dental problem in the last 6 months where you did not have access to dental care?: No Was dental information given to patient?: Patient has dentist HPI f/u HTN HPI Details Patient is a 32-year-old female here today for follow-up visit. Patient has a past medical history significant for thrombocytopenia, hypertension, anxiety, obesity mild persistent asthma, PTSD,.? IGM. Concern--> reports over last 3 weeks noting a lower lumbar back pain that radiates into her pelvic region. She reports the pain somewhat gets relieved after defecating. She reports the pain is intermittent. Otherwise denies any fevers chills or constipation, diarrhea. .. ? Anxiety:? she reports her anxieties have been fairly stable.? She has severe social anxiety. She is speaking with a mental health therapist on a weekly basis. Has been tried on mental health medications in the past though reports side effects. .. Thromocytopenia : Followed by? Dr Taylor for her thrombocytopenia, was treated with IV infusion. , Last platelet count in our records is at 220K. .. HTN: Blood pressure slightly elevated today in office. Now on higher dose of nifedipine at 60 mg. Denies any side effects besides trace pedal edema. Otherwise no reports of headache, chest discomforts and or vision issues.. .. Borderline high cholesterol: Most recent lipid panel showing much improved total cholesterol. She has been working on lifestyle modifications to reduce her cholesterol. .. Impaired glucose metabolism:? Most recent A1c at 5.9, has been started on metformin due to impaired glucose metabolism.? She will work on lifestyle to reduce her weight and carbohydrates in her diet. [facility] Medical History (Updated 02/28/23 @ 10:30 by Rajesh Caraballo PA-C) Tinea versicolor Mucocele of maxillary sinus Epistaxis, recurrent Bartholin gland cyst Hypertension Asthma History of ITP Obesity, morbid, BMI 40.0-49.9 Surgical History H/O removal of cyst History of ectopic History of wisdom tooth extraction History of hemorrhoidectomy Family History Father Hypertension Mother Hypertension Diabetes Sister Hypertension Fatty liver Maternal Grandmother Diabetes Hypertension Lung cancer Sister Prediabetes Maternal Grandfather Lung cancer Social History Housing: Apartment Alcohol intake: current Alcohol intake frequency: does not drink Alcohol type: wine Patient Tobacco Use Status: Former Tobacco user Quit Date: 2011 Tobacco use type: Cigarette e-Cigarette/Vaping Use: Never Used Second Hand Smoke Exposure: No Substance Use Type: Marijuana service: No Current occupational status: unemployed Sexual orientation: Straight/Heterosexual Gender identity: Female Cognitive needs: No Hearing needs: No Vision needs: Yes (wear glasses) Female Reproductive History Menstrual Age of Menarche: 8 Questionnaire Thrive Questionnaire Date Thrive assessed: 08/31/22 SHANNEN-7 AMB Questionnaire SHANNEN-7 Date SHANNEN - 7 assessed: 08/31/22 Source: Developed by Drs. Jass Sandoval, Anahi Johnston, Isai Kumari and colleagues, with an educational kanu from [employer]. Review of Systems Const Denies headache(s) Eyes Denies loss of vision ENT Denies vertigo, Denies dizziness, Denies headache(s) and Denies sore throat Card Denies chest pain, Denies leg edema and Denies lightheadedness Resp Denies cough, Denies hemoptysis and Denies wheezing GI Denies abdominal pain, Denies melena, Denies constipation, Denies diarrhea and Denies vomiting Denies urinary frequency, Denies dysuria and Denies urinary urgency Musc Denies arthralgias, Denies joint swelling, Denies numbness and Denies tingling Neuro Denies Abnormal speech present, Denies behavioral changes, Denies vertigo, Denies dizziness, Denies headache(s), Denies loss of vision, Denies memory loss, Denies numbness and Denies tingling Psych Denies anxiety, Denies behavioral changes, Denies depression, Denies memory loss and Denies panic attacks Roc/Lymph Denies easy bleeding and Denies easy bruising Aller/Immun Denies wheezing Physical exam (Primary Care) Vital Signs: Last Vital Signs Pulse 108 H 02/28/23 10:01 Resp 16 02/28/23 10:01 BP 140/72 H 02/28/23 10:01 Pulse Ox 98 02/28/23 10:01 Oxygen Delivery Method Room Air 02/28/23 10:01 BMI result Body Mass Index 45.4 BMI Assessment/Plan discussion: High Tobacco/Smoking Status: Tobacco use Status Tobacco use date assessed 12/23/22 02/28/23 10:04 Patient Tobacco Use Status Former Tobacco user 02/28/23 10:04 Tobacco use type Cigarette 02/28/23 10:04 e-Cigarette/Vaping Use Never Used 02/28/23 10:04 Thrive Assessment: Date of Thrive Assessment Date Thrive assessed 08/31/22 02/28/23 10:04 Const Other: Obese General: healthy appearing, no acute distress, alert and awake Nutritional Appearance: well nourished Orientation/consciousness: oriented to person, oriented to place and oriented to time HENMT Ears: TM's normal bilaterally General nose exam: Normal nasal mucous membranes and turbinates present Eyes Conjunctivae: conjunctivae normal Sclerae: sclerae normal Pupils: Equal, round and reactive pupils present Neck Neck: Yes no lymphadenopathy and Yes no JVD Thyroid: Thyroid normal Carotids: no bruits Resp Effort & Inspection: normal respiratory effort and not tachypneic Auscultation: no crackles, no rales, no rhonchi and no wheezes Cardio Rate: regular rate Rhythm: regular rhythm Heart sounds: no murmurs and normal S1 and S2 GI Palpation (GI): Soft to palpation, nontender, no hepatomegaly and no splenomegaly Auscultation: normal bowel sounds Skin Other: Notable blotchy hyperpigmentation of skin over upper extremities torso lower extremities. General skin exam: no rashes or lesions noted and dry skin Neuro General: oriented to person, oriented to place and oriented to time Cranial nerves: Yes Equal, round and reactive pupils present Speech: No Abnormal speech present Gait exam (Neuro): Normal gait present Motor exam (neuro): no tremor noted Extrem Right upper extremity: full ROM Left upper extremity: full ROM Right lower extremity: full ROM; no edema Left lower extremity: full ROM; no edema Psych Mental Status: mental status grossly normal Speech and movement: Normal speech and movement present Affect: normal affect Attitude: cooperative Thought process: Normal thought process present Office Procedures Flu Questionnaire Does the patient have a severe egg allergy?: No Does the patient have severe life threatening allergies?: No Does the patient have a fever or illness today?: No Has the patient ever had Guillain-Talmage Syndrome?: No Has the patient ever had any past reaction to a flu shot?: No Results AMB Hemoglobin A1c AMB Hemoglobin A1c 6.1 % Last Edit by STIVEN Gonzales on 02/28/23 10:12 Immunizations flu vacc [id number] 6mos up(PF) 60 mcg(15 mcgx4)/0.5 mL IM syringe Performing Provider: Rajesh Caraballo PA-C Performing Location: [facility] Administered by: STIVEN Gonzales on 02/28/23 10:34 Dose Route Admin Location Dispensed Lot Number Expiration Date NDC Drum Printer 0.5 mL IM Left Deltoid 0.5 mL [id number] 11/20/23 [id number] [place] VIS Given Date VIS Provided VIS Publication Date 02/28/23 Single Vaccine 20 Eligibility Eligibility Date Funding Source Not [facility] Eligible 02/28/23 Private Results Reviewed Results Reviewed: Laboratory Last Values Hgb A1c (Clinic) 6.1 % (4.0-6.0) H 02/28/23 10:00 Assessment and Plan Assessment & Plan (1) Hypertension: Code(s): I10 - Essential (primary) hypertension Qualifiers: Hypertension type: essential hypertension Qualified Code(s): I10 - Essential (primary) hypertension Plan: Blood pressure well controlled on current dose of nifedipine. Patient reports home readings her more acceptable.. Blood pressure slightly elevated today in office likely secondary to white coat hypertension. Goal blood pressure be below 140/90 (2) Thrombocytopenia: Code(s): D69.6 - Thrombocytopenia, unspecified Plan: Patient continues to follow hematology, most recent platelet count acceptable. Denies any overt signs of bleeding or bruising per (3) Anxiety: Code(s): F41.9 - Anxiety disorder, unspecified Plan: Patient shannen 7 score positive for moderate anxiety which has been existing condition for her. She does speak with a mental health therapist weekly though now wants to see psychiatry. She has been tried medications in the past though had a lot of side effects. (4) Obese: Code(s): E66.9 - Obesity, unspecified Qualifiers: Body mass index: BMI 40.0-44.9 Obesity classification: adult class 3 (BMI >= 40) Obesity type: due to excess calories Serious obesity comorbidity presence: without serious comorbidity Qualified Code(s): E66.01 - Morbid (severe) obesity due to excess calories; Z68.41 - Body mass index [BMI]40.0-44.9, adult Plan: Unfortunately gained weight since last office visit. Patient does understand her BMI is over 30 and will work on being more physically active and adapting to better eating habits to reduce her weight. (5) Asthma: Code(s): J45.909 - Unspecified asthma, uncomplicated Qualifiers: Asthma complication type: uncomplicated Asthma persistence: intermittent Asthma severity: mild Qualified Code(s): J45.20 - Mild intermittent asthma, uncomplicated Plan: Asthma is reported as stable, does report some asthma symptoms during changes of seasons. Denies any nighttime awakenings with asthma symptoms or recent exacerbations. (6) Impaired glucose metabolism: Code(s): R73.09 - Other abnormal glucose Plan: Unfortunately A1c elevated at 6.1. Has noted some weight gain/office visit. She will work hard on lifestyle modifications . Goal A1c to be below 5.7 (7) Borderline high cholesterol: Code(s): E78.9 - Disorder of lipoprotein metabolism, unspecified Plan: Noted most recent fasting lipid panel showing improved total cholesterol and LDL. Will continue to work on lifestyle modifications to reduce her eye cholesterol. (8) Tinea versicolor: Code(s): B36.0 - Pityriasis versicolor Plan: Patient's skin issue appears most consistent with tinea versicolor. Advised on using Selsun Blue her skin. She reports she will be following up with a integrity analyst. (9) Low back pain: Code(s): M54.50 - Low back pain, unspecified Qualifiers: Back pain laterality: midline Chronicity: acute Sciatica presence: without sciatica Qualified Code(s): M54.50 - Low back pain, unspecified Plan: Reports a month history of lower back pain that radiates into her pelvic region. Orders: Orders AMB Hemoglobin A1c 02/28/23 E11.9 - Type 2 diabetes mellitus without complications Complete Blood Count no Diff 6 Months D69.6 - Thrombocytopenia, unspecified Microalbumin, Random (w Creat) 6 Months I10 - Essential (primary) hypertension Hemoglobin A1c 6 Months R73.09 - Other abnormal glucose Comprehensive [place]. Panel Fast 6 Months I10 - Essential (primary) hypertension XR lumbar spine 4V min 02/28/23 M54.50 - Low back pain, unspecified UA CC w/rflx Micro + Cult 02/28/23 M54.50 - Low back pain, unspecified, R30.0 - Dysuria Influenza [id number] Immunization 02/28/23 Z23 - Encounter for immunization Lipid Panel 6 Months E78.9 - Disorder of lipoprotein metabolism, unspecified Referrals Counseling Referral F41.9 - Anxiety disorder, unspecified Medications: Refilled nifedipine ER 60 mg PO DAILY 90 tabs 1RF 90 days I10 - Essential (primary) hypertension albuterol sulfate 90 mcg/actuation 2 puffs PO Q4H PRN 6.7 grams 3RF bronchospasm 30 days J45.20 - Mild intermittent asthma, uncomplicated Coding Level of Care Code Est Pt Level 4 (11325) Diagnoses Essential hypertension I10 Hypertension type: essential hypertension Thrombocytopenia D69.6 Anxiety F41.9 Class 3 severe obesity due to excess calories without serious comorbidity with body mass index (BMI) of 40.0 to 44.9 in adult E66.01; Z68.41 Body mass index: BMI 40.0-44.9 Obesity classification: adult class 3 (BMI >= 40) Obesity type: due to excess calories Serious obesity comorbidity presence: without serious comorbidity Mild intermittent asthma without complication J45.20 Asthma complication type: uncomplicated Asthma persistence: intermittent Asthma severity: mild Impaired glucose metabolism R73.09 Borderline high cholesterol E78.9 Tinea versicolor B36.0 Acute midline low back pain without sciatica M54.50 Back pain laterality: midline Chronicity: acute Sciatica presence: without sciatica
== END 2023-02-28 10:34 | disposition home or self-care (01) ==
PROVIDERS: Visit Provider Physician Assistant
DX: Z23 Encounter for immunization (principal); E11.9 Type 2 diabetes mellitus without complications
CPT/HCPCS: 83036; 90471; 90686; 99214

== ENCOUNTER 2023-05-09 10:20 | Outpatient (REF) | payer OTHER, SELFPAY ==
[2023-05-10 06:19] LABS: CT PCR NOT DETECTED (Not Detect.); NG PCR NOT DETECTED (Not Detect.)
[2023-05-10 16:13] LABS: BV Int Neg Control Negative (Negative); BV Int Pos Control Positive (Positive)
== END 2023-05-09 10:21 | disposition home or self-care (01) ==
LOC: HO.LAB 10:20
PROVIDERS: Visit Provider Advanced Practice Midwife
DX: Z01.419 Encounter for gynecological examination (general) (routine) without abnormal findings (principal); N89.8 Other specified noninflammatory disorders of vagina; N92.0 Excessive and frequent menstruation with regular cycle; R10.2 Pelvic and perineal pain; Z20.2 Contact with and (suspected) exposure to infections with a predominantly sexual mode of transmission
CPT/HCPCS: 0353U; 87480; 87510; 87660; 99395

== ENCOUNTER 2023-05-09 10:20 | Outpatient (AMB) | payer OTHER, SELFPAY ==
--- NOTE | 2023-05-09 10:32 | MHC.OFFVIS ---
Intake Vital Signs 05/09/23 10:34 Height 5 ft 2 in Weight 246 lb BMI 45.0 BP 112/76 Intake Visit Reasons: Annual [employer] [employer] Present (Shanelle) Allergies amlodipine Allergy (Unknown, Verified 05/09/23 10:33) Hives amoxicillin [AMOXICILLIN] Allergy (Unknown, Verified 05/09/23 10:33) UNKNOWN aspirin [ASPIRIN] Allergy (Unknown, Verified 05/09/23 10:33) LOW PLATELETS, bleeding, ITP propranolol Allergy (Unknown, Verified 05/09/23 10:33) Hives Is last menstrual period known: Yes Last menstrual period: 04/24/23 HPI HPI Comments History of Present Illness Details She is a premenopausal woman presenting for annual examination. Doing well with concerns: 4 Bartholins cysts every 4-5months. Pain on right lower pelvis after her cycle this month. Not in pain today. History of bilateral ectopics with tubal removal. Was being seen by [facility], has taken a break from their services does not want to travel to [place] to pursue infertility treatments at this point. Regular monthly menses, HMB 2/4-5d. , currently is sexually active. She denies vaginal itching and irritation. External itch only. Using always pads. She tries to eat healthy, struggling with depression, not eating as well lately, and stays active with walking. She has a therapist, and crisis number on hand. Not working presenting. Denies family history of breast, ovarian or colon cancer. Last pap smear 2019, negative. [facility] Medical History Tinea versicolor Mucocele of maxillary sinus Epistaxis, recurrent Bartholin gland cyst Hypertension Asthma History of ITP Obesity, morbid, BMI 40.0-49.9 Surgical History H/O removal of cyst History of ectopic History of wisdom tooth extraction History of hemorrhoidectomy Family History Father Hypertension Mother Hypertension Diabetes Sister Hypertension Fatty liver Maternal Grandmother Diabetes Hypertension Lung cancer Sister Prediabetes Maternal Grandfather Lung cancer Social History Housing: Apartment Alcohol intake: current Alcohol intake frequency: does not drink Alcohol type: wine Patient Tobacco Use Status: Former Tobacco user Quit Date: 2011 Tobacco use type: Cigarette e-Cigarette/Vaping Use: Never Used Second Hand Smoke Exposure: No Substance Use Type: Marijuana service: No Current occupational status: unemployed Sexual orientation: Straight/Heterosexual Gender identity: Female Cognitive needs: No Hearing needs: No Vision needs: Yes (wear glasses) Female Reproductive History Menstrual Age of Menarche: 8 Duration of menses: 3-5 days Date of last menstrual period: 04/24/23 control method: none Total pregnancies: 3 Number of Living Children: 0 Ab spontaneous: 1 Ectopics: 2 Date of last pap smear: 05/10/20 (neg pap and hpv) Review of Systems Const All systems reviewed & are unremarkable except as noted in HPI and below Reports as per HPI Eyes Reports no additional complaints ENT Reports no additional complaints Card Reports no additional complaints Resp Reports no additional complaints GI Reports as per HPI and Reports no additional complaints Reports as per HPI Musc Reports no additional complaints Skin/Breast Reports as per HPI Neuro Reports no additional complaints Psych Reports no additional complaints Endo Reports no additional complaints Roc/Lymph Reports no additional complaints Aller/Immun Reports no additional complaints Physical Exam Vital Signs: Last Vital Signs BP 112/76 05/09/23 10:34 BMI result Body Mass Index 45.0 Const General: cooperative, healthy appearing, no acute distress, well developed and alert Orientation/consciousness: patient oriented x3 HEENT Head: Yes normal to inspection Eyes General: appearance normal, both eyes and all related structures Neck Neck: Yes normal visual inspection Thyroid: Thyroid normal Chest Chest palpation & inspection: normal inspection of the chest and other (no puckering, dimpling, peau de orange, retraction, discharge, masses) Breast/axilla inspection: normal inspection of the breasts Breast/axilla palpation: normal palpation of the breasts Resp Effort & Inspection: normal respiratory effort GI Inspection: Yes normal to inspection Palpation (GI): Soft to palpation Rectal Exam - Female: deferred Other: acanthrosis nigrican of vulvar area General: Yes bladder normal to palpation External Female Exam: normal external appearance and normal appearance of the urethra Speculum Exam - Vagina: normal appearance of the vagina, normal palpation and normal vaginal discharge Speculum Exam - Cervix: normal appearance of the cervix and normal palpation Bimanual exam- vagina & uterus: normal bimanual exam, normal palpation, uterine size normal, bladder normal to palpation, normal palpation and non-tender Bimanual Exam- Adnexa, other: no masses Skin General skin exam: no rashes or lesions noted Rashes: no rashes Neuro General: patient oriented x3 Cognition (Neuro): normal cognition Extrem General: Yes normal to inspection Psych Attitude: cooperative Thought process: Normal thought process present Assessment & Plan Assessment & Plan (1) Encounter for well woman exam with routine gynecological exam: Code(s): Z01.419 - Encounter for gynecological examination (general) (routine) without abnormal findings Plan Discussed: Current recommendations for pap smears per ASCCP guidelines. Breast awareness and periodic breast exams. Maintain a healthy lifestyle including a well balanced diet and routine exercise. Workup for painful menses, heavy menstrual bleeding including: Ultrasound. Recent labs all normal for CBC and TSH. All of her questions and concerns were addressed to the best of my ability. She is agreeable to the plan of care. And will follow-up pending her ultrasound results. Discussed stopping use of always pads use of topical cream and recheck the area at her next. RTO in one year for annual obstetrics gynecology physician examination. This note is constructed using voice recognition software. While every effort has been made to ensure accuracy, social welfare clerk errors may have been included. Orders: Orders US pelvic and transvaginal Today N92.0 - Excessive and frequent menstruation with regular cycle, R10.2 - Pelvic and perineal pain Medications: New clotrimazole-betamethasone 1-0.05 % apply externally a thin coat to the area 1 appl topical BID 7 days 45 grams 0RF itching Coding Level of Care Code Est Pt Prev Care 18-39y(74536) Diagnoses Encounter for well woman exam with routine gynecological exam Z01.419
[2023-05-09 10:34] VITALS: BP 112/76; BMI 45.0
== END 2023-05-09 11:08 | disposition home or self-care (01) ==
PROVIDERS: Visit Provider Advanced Practice Midwife
DX: Z01.419 Encounter for gynecological examination (general) (routine) without abnormal findings (principal)
CPT/HCPCS: 99395

== ENCOUNTER 2023-05-09 11:46 | Outpatient (REF) | payer OTHER, SELFPAY | END 2023-05-09 11:47 | disposition home or self-care (01) | LOC: HO.LNP 11:46 | PROVIDERS: Visit Provider Advanced Practice Midwife | DX: Z13.89 Encounter for screening for other disorder (principal) ==

== ENCOUNTER 2023-07-20 13:31 | Outpatient (REF) | payer OTHER, SELFPAY ==
--- NOTE | ~2023-07-20 | US_ITS ---
EXAMINATION: US PELVIS CLINICAL INFORMATION: Pelvic and perineal pain. COMPARISON: None available. TECHNIQUE: Ultrasound of the pelvis is performed using both transabdominal and transvaginal transducers along with Doppler. Transvaginal imaging is performed due to inadequate visualization transabdominally. FINDINGS: Uterus: The uterus is anteverted and measures 7.2 x 3.1 x 3.8 cm. The double wall endometrial thickness is 0.6 mm. The uterus is smooth in contour and has normal myometrial echogenicity. At the time of the prior study, 2 small uterine fibroids were seen near the left cornu. On today's exam, only a single 7 mm subserosal fibroid is seen (previously 9 mm). Adnexa: Only the right ovary could be visualized. There is normal color flow to the adnexa. There is no evidence of right ovarian torsion. There is no pelvic ascites or fluid collection. Right ovary measures 4.6 x 3.8 x 3.6 cm for a volume of 33 mL which includes a septated 3.5 x 3.7 2.2 cm cyst. cm. Left ovary was not seen. US/US pelvic and transvaginal IMPRESSION: 1. Small uterine fibroid. 2. Septated 3.7 cm right ovarian cyst. This is almost certainly a benign cyst in a patient in this age range. No follow-up imaging is recommended.
== END 2023-07-20 13:32 | disposition home or self-care (01) ==
LOC: HO.US 13:31
PROVIDERS: PCP Physician Assistant; Visit Provider Advanced Practice Midwife
DX: R10.2 Pelvic and perineal pain (principal); N92.0 Excessive and frequent menstruation with regular cycle
CPT/HCPCS: 76830; 76856

== ENCOUNTER 2023-07-26 10:32 | Outpatient (REF) | payer OTHER, SELFPAY ==
[2023-07-26 11:57] LABS: Appearance Urine Clear; Color Urine Yellow; Glucose Urine UA Negative (Negative); Leukocyte Esterase Urine Trace (Negative); Nitrite Urine Negative (Negative); PH 6.5 (5.0-9.0); Specific Gravity - Urine 1.015 (1.005-1.025); UMIC TRIGGER UACC YES; Urine Blood Negative (Negative); Urine Ketones Negative (Negative); Urine Protein Negative (Neg-Trace)
[2023-07-26 12:03] LABS: Estimated Average Glucose 123 mg/dL; Hemoglobin A1c % 5.9 % (<6.0)
[2023-07-26 12:05] LABS: Hematocrit 40.7 % (37.0-47.0); Hemoglobin 13.8 g/dl (12.0-16.0); Mean Corpuscular HGB Conc 33.9 g/dl (31.0-35.0); Mean Corpuscular Hemoglobin 27.2 pg (27.0-33.0); Mean Corpuscular Volume 80.3 fL (80.0-98.0); Mean Platelet Volume 13.9 fL (9.4-12.3); Red Blood Count 5.07 X10*6/uL (4.20-5.50); Red Cell Distribution Width 13.2 % (11.0-16.0); White Blood Count 9.6 X10*3/uL (4.8-10.8)
[2023-07-26 12:27] LABS: Platelet Count 32 X10*3/uL (160-400)
[2023-07-26 12:40] LABS: Creatinine Urine 117.38 mg/dL; Microalbum/Creatinine Ratio Ur 5.9 ug/mg cr (<30)
[2023-07-26 12:41] LABS: Alanine Aminotransferase 50 U/L (0-31); Albumin Level 4.1 g/dL (3.5-5.0); Alkaline Phosphatase 73 U/L (39-117); Anion Gap 12 (12-20); Aspartate Amino Transferase 37 U/L (5-31); Bilirubin Total 0.7 mg/dL (0.0-1.0); Blood Urea Nitrogen 12 mg/dL (9-16); Calcium 9.3 mg/dL (8.4-10.2); Carbon Dioxide 26 mmol/L (22-29); Chloride 103 mmol/L (96-108); Cholesterol 189 mg/dL (<200); Estimated Glomerular Filt Rate > 60; Glucose Fasting 107 mg/dL (60-99); HDL Cholesterol 37 mg/dL (>40); LDL Cholesterol Calculated 129 mg/dL (<100); Potassium 3.7 mmol/L (3.3-5.1); Sodium 137 mmol/L (135-145); Total Protein 6.7 g/dL (6.5-8.0); Triglycerides 117 mg/dL (<150)
[2023-07-26 13:34] LABS: Bacteria Urine None Seen (None Seen); Hyaline Casts Urine 0-2 /LPF (0-2); RBC Urine 0-2 /HPF (0-2); Squamous Epithelial Cell Urine 0-2 /HPF (0-2); WBC Urine 0-5 /HPF (0-5)
== END 2023-07-26 10:33 | disposition home or self-care (01) ==
LOC: HO.LAB 10:32
PROVIDERS: PCP Physician Assistant; Visit Provider Physician Assistant
DX: I10 Essential (primary) hypertension (principal); E78.9 Disorder of lipoprotein metabolism, unspecified; D69.6 Thrombocytopenia, unspecified; R73.09 Other abnormal glucose
CPT/HCPCS: 36415; 80053; 80061; 81001; 81003; 82043; 82570; 83036; 85027

== ENCOUNTER 2023-09-18 08:59 | Emergency (ER) | payer OTHER, SELFPAY ==
[2023-09-18 09:02] VITALS: BP 163/98; PULSE 99; RESP 18; TEMP 36.3; O2SAT 99; BMI 45.1
--- OUTSIDE RECORDS SUMMARY | 2023-09-18 09:26 | XMS_ITS | Continuity of Care Document ---
Author Organization [facility] Address [address] [place] [address]- Care Team Providers Care Facilities Director Name Role Phone Rajesh Zuleta Primary Care Physician [phone] [place] [facility] [place] - 08/26/23 [facility] [address] [place] [id number] Attending Physician: Glynn Chamberlain Admitting Physician: AdmGlynn vigil Referring Physician: AdmtrGlynn Allergies, Adverse Reactions, Alerts Substance Reaction Severity Status propranolol Active amoxicillin Active amLODIPine Active Immunizations Given and Recorded Vaccine Date Status Refusal Reason pneumococcal 23-valent vaccine 11/18/11 Given Medications acetaminophen 325 mg oral capsule 2 capsule = 650 mg, By Mouth, Every 4 hours, PRN as needed for pain, # 20 capsule, 0 Refills, Maintenance, 01/26/22 12:00:00 EDT, Capsule, [facility], Partial fill upon patient request if the prescription is for a schedule II opioid drug.... Start Date: 01/26/22 Status: Ordered Yolanda 0.35 mg oral tablet 1 tablet = 0.35 mg, By Mouth, Daily, start first tablet today, # 84 tablet, 1 Refills, Maintenance,01/07/22 15:48:00 EDT, Tablet, [facility], Partial fill upon patient request if the prescription is for a schedule II opioid drug., 158.2,... Start Date: 01/07/22 Stop Date: 06/24/22 Status: Ordered hydrochlorothiazide 25 mg oral tablet 25 mg, 1, tablet, By Mouth, Daily, Refills 0, Maintenance, 08/02/23 13:19:00 EDT, Partial fill uponpatient request if the prescription is for a schedule II opioid drug. Start Date: 08/02/23 Status: Ordered ibuprofen 800 mg oral tablet 800 mg, 1, tablet, By Mouth, Every 8 hours, # 30 tablet, Refills 0, Tot. Refills 0, Maintenance, 01/26/22 12:00:00 EDT, Route to Pharmacy Electronically, [facility], Partial fill upon patient request if the prescription is for a schedule... Start Date: 01/26/22 Status: Ordered metFORMIN 500 mg oral tablet 1 tablet = 500 mg, By Mouth, 2 times a day, Please start with 1 tablet daily for 1 week the increase to twice a day., # 180 tablet, 3 Refills, Maintenance, 08/06/22 17:12:00 EDT, Tablet, [facility], Partial fill upon patient request if th... Start Date: 08/06/22 Status: Ordered NIFEdipine By Mouth, 0 Refills, Maintenance, 01/07/22 15:07:00 EDT, Partial fill upon patient request if the prescription is for a schedule II opioid drug. Start Date: 01/07/22 Status: Ordered Multivitamins By Mouth, Daily, 0 Refills, Maintenance, 01/07/22 15:07:00 EDT, Partial fill upon patient request if the prescription is for a schedule II opioid drug. Start Date: 01/07/22 Status: Ordered ProAir HFA 90 mcg/inh inhalation aerosol with adapter 2 puffs, Inhalation, Every 4 hours, PRN for wheezing, # 8.5 Gm, 0 Refills, Maintenance, Aerosol Start Date: 11/16/11 Status: Ordered Promacta 50 mg oral tablet 1 tablet = 50 mg, By Mouth, Daily, # 30 tablet, 0 Refills, Maintenance, 08/03/23 9:52:00 EDT, Tablet, Partial fill upon patient request if the prescription is for a schedule II opioid drug. Start Date: 08/03/23 Status: Ordered Triamcinolone Once, bid, 0 Refills, Maintenance, 08/02/23 13:19:00 EDT, Partial fill upon patient request if the prescription is for a schedule II opioid drug. Start Date: 08/02/23 Status: Ordered Problem List Condition Confirmation Course Effective Dates Status H ealth Status Informant Asthma Confirmed Active HTN (hypertension) Confirmed Active ITP (idiopathic thrombocytopenic purpura) 1 Confirmed Active Severe obesity Confirmed Active - recently completed Rituxin therapy. Social History Social History Type Response Smoking Status Former smoker, quit more than 30 days ago entered on: 04/18/19 Sex Laboratory * Event Display: Non BH Lab Results Authored Date: * Event Display: Non BH Lab Results Authored Date: * Event Display: Non BH Lab Results Authored Date: Radiology * Event Display: Ultrasound Pelvis, Non-BH Authored Date: * Event Display: [place] Nuclear Medicine, Non-BH Authored Date: * Event Display: CT Scan Abdomen, Non- BH Authored Date: * Event Display: [place] Nuclear Medicine, Non-BH Authored Date: * Event Display: CT Scan Neck, Non- BH Authored Date: * Event Display: MRI Head, Non- BH Authored Date: * Event Display: MRI Head, Non- BH Authored Date: Patient Care team information Care Team Personnel Name: Corry Hensley Position: [facility] Onco RN Member Role: Primary Care Nurse Name: Jass Guan MD Position: [facility] Physician - Oncology Member Role: Lifetime Consulting Physician Address: Address: [address] Jass Guan III, MD [place], [place] - Name: Rajesh Zuleta Position: Reference Physician Member Role: PCP Address: Address: [address] [place] [address]- [place] Name: Bigg Daniels RN Position: [facility] Onco RN Member Role: Primary Care Nurse Care Team Related Persons Name: STEFANO OGDEN Address: [address] [address] Name: ERASTO TALAVERA Address: home [address] [place] [address]
--- OUTSIDE RECORDS SUMMARY | 2023-09-18 09:26 | XMS_ITS | Continuity of Care Document ---
Author Organization [facility] Medicine Address [address] [place] [address], [address]t [address] [place] [address]- Care Team Providers Care Director Of Leadership Development Name Role Phone Rajesh Zuleta Primary Care Physician [phone] Encounter [facility] [place] Date(s): 08/10/22 - 08/17/22 [facility] [address], 4th [address] [place] [address] Attending Physician: Camila Loya MD Allergies, Adverse Reactions, Alerts Substance Reaction Severity [...] Date: 01/07/22 Stop Date: 06/24/22 Status: Ordered ibuprofen 800 mg oral tablet [...] Maintenance, Aerosol Start Date: 11/16/11 Status: Ordered Problem List Condition Confirmation Course Effective Dates Status H ealth Status Informant Asthma Confirmed Active HTN (hypertension) Confirmed Active ITP (idiopathic thrombocytopenic purpura) 1 Confirmed Active Severe obesity Confirmed Active - recently completed Rituxin therapy. Vital Signs Most recent to oldest [Reference Range]: 1 Height 158.2 cm (08/10/22 8:12 AM) Weight 109.4 kg (08/10/22 8:12 AM) Pulse Rate [55-90 bpm] 115 bpm *H* (08/10/22 8:12 AM) Body Mass Index [18.5-24.99 kg/m2] 43.71 kg/m2 *>HHI* (08/10/22 8:12 AM) Blood Pressure [90-138/55-84 mm Hg] 133/ 78mm Hg (08/10/22 8:12 AM) Blood pressure sites Arm, right (08/10/22 8:12 AM) Weight Obtained Via Standing scale (08/10/22 8:12 AM) Social History Social History Type Response Smoking Status Former smoker, quit more than 30 days ago entered on: 04/18/19 Sex Note * Vilma Gusman MA: PERFORM, SIGN, VERIFY Event Display: Patient Education/Instruction Authored Date: [id number] [facility] *[facility] Clinical Summary Name JUAN OGDEN Age 32 Years 1990 PCP Rajesh Zuleta PCP Visit Date 2022 08:02:00 Additional Instructions: Scheduled Appointments?? Future Appointments ?No Future Appointments Scheduled Follow-Up Instructions ?? Diagnosis Medications: Please continue your medications until treatment is completed or stopped by your provider. Discuss any questions related to medications with your provider. Medications to Continue with No Changes These medications were not printed or sent to your pharmacy Acetaminophen (acetaminophen 325 mg oral capsule) 2 capsule Oral every 4 hours as needed as needed for pain. Refills: 0. Next Dose: Albuterol (ProAir HFA 90 mcg/inh inhalation aerosol with adapter) 2 puff(s) Inhalation every 4 hours as needed for wheezing. Next Dose: Ibuprofen (ibuprofen 800 mg oral tablet) 1 tab(s) Oral every 8 hours. Refills: 0. Next Dose: Metformin (metFORMIN 500 mg oral tablet) 1 tab(s) Oral twice a day. Please start with 1 tablet daily for 1 week the increase to twice a day.. Refills: 3. Next Dose: Multivitamin, ( Multivitamins) Oral Daily. Next Dose: NIFEdipine Oral. Next Dose: Norethindrone (Yolanda 0.35 mg oral tablet) 1 tab(s) Oral Daily for 84 Days. start first tablet today. Refills: 1. Next Dose: Allergy Info:?? amLODIPine; amoxicillin; propranolol Medications Given This Visit Future Orders ?No future orders Vital Signs Height 158.2 cm Weight 109.4 kg BMI 43.71 kg/m2 Blood Pressure 133 mm Hg/78 mm Hg Temperature Pulse Rate 115 bpm Respiratory Rate 02 Sat Mode of Delivery / You can now view a summary of your hospital visit from the comfort of your home through a free online portal called My eStore App. My eStore App is a website that allows you to securely view your medical information including discharge summary, medications and follow-up visits. ??You can alsosend a secure electronic message to your doctor???s office to request appointments, renew medications or just ask a question. You can enroll at [email or web address] or register during your next office visit. Disclaimer:?? The information provided is of a general nature and is intended to be used in conjunction with the recommendations and advice of your health care practitioner. ??Every effort has been made to ensure that the information provided is accurate and complete at the time it is provided to you however, as your needs change, or, as new ??information becomes available, different or additional instructions may be required. If you have questions, please consult with your primary care provider or pharmacist, as appropriate. ??This information is not intended to serve as substitution for assessment and evaluation by a qualified health care provider. If you do not have a primary care provider, you may find a [facility] provider by calling [facility] at [phone]. For information about the plan of care including goals and instructions for your diagnosis, please see the patient education orders section of this document. Patient Education Materials?? The content of this educational material or handout may have been modified, supplemented, or adapted from its original content and format to support your individualized medical care. Additional Provider Instructions: Patient Care team information Care Team Personnel Name: Corry Hensley Position: [facility] Onco RN Member Role: Primary Care Nurse Name: Jass Guan MD Position: [facility] Oncology MD Member Role: Lifetime Consulting Physician Address: Address: [address] Jass Guan III, MD [place], [place] - Name: Rajesh Zuleta Position: Reference Physician Member Role: PCP Address: Address: [address] [place], [place] - Care Team Related Persons Name: STEFANO OGDEN Address: home [address] [address] Name: ERASTO TALAVERA Address: home [address] [place] [address]
--- OUTSIDE RECORDS SUMMARY | 2023-09-18 09:26 | XMS_ITS | Continuity of Care Document ---
Author Organization [facility] Medicine Address [address], 4t [address] [place] [address]- Care Team Providers Care Field Sales Engineer Name Role Phone Rajesh Zuleta Primary Care Physician [phone] Encounter [facility] [place] Date(s): 08/10/22 - 09/09/22 [facility] [address], 4th [address] [place] [id number] Attending Physician: Glynn Chamberlain Admitting Physician: Glynn Chamberlain Referring Physician: AdmtrGlynn Allergies, Adverse Reactions, Alerts [...] 30 days ago entered on: 04/18/19 Sex Patient Care team information Care Team Personnel Name: Corry Hensley Position: [facility] Onco RN Member Role: Primary Care Nurse Name: Jass Guan MD Position: [facility] Oncology MD Member Role: Lifetime Consulting Physician Address: Address: [address] Jass Guan III, [place] [address]- Name: Rajesh Zuleta Position: Reference Physician Member Role: PCP Address: Address: [address] [place] [address]- Care Team Related Persons Name: STEFANO OGDEN Address: home [address] [address] Name: ERASTO TALAVERA Address: home [address] [place] [address]
--- OUTSIDE RECORDS SUMMARY | 2023-09-18 09:26 | XMS_ITS | Continuity of Care Document ---
Author Organization [facility] Medicine Address [address] [place] [address], [address]t [address] [place] [address]- Care Team Providers Care Director Online Marketing Name Role Phone Rajesh Zuleta Primary Care Physician [phone] Encounter [facility] Date(s): 11/15/22 - 12/15/22 [facility] Rep[facility] [address], 4th [address] [place] [id number] Allergies, Adverse Reactions, Alerts Substance Reaction Severity [...] Care Team Personnel Name: Corry Hensley Position: [facility] Onco RN Member Role: Primary Care Nurse Name: Jass Guan MD Position: [facility] Physician - Oncology Member Role: Lifetime Consulting Physician Address: Address: [address] Jass Gu[place] III, [place] [address]- Name: Rajesh Zuleta Position: Reference Physician Member Role: PCP Address: Address: [address] [place] [address]- Care Team Related Persons Name: STEFANO OGDEN Address: home [address] [address] Name: ERASTO TALAVERA Address: home [address] [place] [address]
--- OUTSIDE RECORDS SUMMARY | 2023-09-18 09:26 | XMS_ITS | Continuity of Care Document ---
Author Organization [facility] Medicine Address [address] [place] [address], 4t [address] [place] [address]- Care Team Providers Care Pneumatic System Conveyor Operator Name Role Phone Rajesh Zuleta Primary Care Physician Encounter [facility] Date(s): 09/01/22 - 10/01/22 [facility] Rep[facility] [address] [facility] [facility], 4th [address] [place] [id number] Allergies, Adverse Reactions, Alerts Substance Reaction Severity [...] Care Team Personnel Name: Corry Hensley Position: [facility] Onco RN Member Role: Primary Care Nurse Name: Jass Guan MD Position: [facility] Oncology MD Member Role: Lifetime Consulting Physician Address: Address: [address] Jass Guan III, [place] [address]- Name: Rajesh Zuleta Position: Reference Physician Member Role: PCP Address: Address: [address] [place] [address]- Care Team Related Persons Name: STEFANO OGDEN Address: home [address] [address] Name: ERASTO TALAVERA Address: home [address] [place] [address]
[2023-09-18 10:58] LABS: MANUAL DIFF FLAG NO
[2023-09-18 11:00] VITALS: BP 138/93; PULSE 77; RESP 17; TEMP 36.9; O2SAT 96
[2023-09-18 11:00] LABS: Basophils Absolute Auto 0.1 X10*3/uL (0.0-0.2); Basophils Percent Auto 0.5 % (0-2); Eosinophils Absolute Auto 0.1 X10*3/uL (0.0-0.4); Eosinophils Percent Auto 1.4 % (0-4); Hematocrit 41.4 % (37.0-47.0); Hemoglobin 13.7 g/dl (12.0-16.0); Imm Gran Abs Auto 0.04 X10*3/uL (0.00-0.03); Imm Gran Pct Auto 0.4 % (0.0-0.4); Lymphocytes Absolute Auto 1.1 X10*3/uL (1.2-4.9); Lymphocytes Percent Auto 12.3 % (20-40); Mean Corpuscular HGB Conc 33.1 g/dl (31.0-35.0); Mean Corpuscular Hemoglobin 27.3 pg (27.0-33.0); Mean Corpuscular Volume 82.5 fL (80.0-98.0); Mean Platelet Volume 12.2 fL (9.4-12.3); Monocytes Absolute Auto 0.4 X10*3/uL (0.1-1.2); Monocytes Percent Auto 4.1 % (2-11); Neutrophils Absolute Auto 7.5 x10*3/uL (2.0-8.3); Neutrophils Percent Auto 81.3 % (45-73); Platelet Count 348 X10*3/uL (160-400); Red Blood Count 5.02 X10*6/uL (4.20-5.50); Red Cell Distribution Width 13.4 % (11.0-16.0); White Blood Count 9.2 X10*3/uL (4.8-10.8)
[2023-09-18] MEDS: 0.9 % Sodium Chloride 1,000 ML 999 ML IV (11:03)
[2023-09-18] MEDS: Acetaminophen 325 MG TABLET 975 MG PO (11:03)
[2023-09-18] MEDS: ondansetron HCL 4 MG/2 ML VIAL IVPUSH (11:03)
[2023-09-18 11:15] LABS: Alanine Aminotransferase 44 U/L (0-31); Albumin Level 4.1 g/dL (3.5-5.0); Alkaline Phosphatase 85 U/L (39-117); Anion Gap 14 (12-20); Aspartate Amino Transferase 33 U/L (5-31); Bilirubin Total 0.5 mg/dL (0.0-1.0); Blood Urea Nitrogen 9 mg/dL (9-16); Calcium 9.5 mg/dL (8.4-10.2); Carbon Dioxide 28 mmol/L (22-29); Chloride 100 mmol/L (96-108); Creatinine Clr Calc Pharmacy 101.7; Estimated Glomerular Filt Rate > 60; Glucose Random 181 mg/dL (60-115); Potassium 3.4 mmol/L (3.3-5.1); Sodium 139 mmol/L (135-145); Total Protein 6.7 g/dL (6.5-8.0)
--- NOTE | 2023-09-18 12:04 | ED.HA ---
HPI - Headache General Chief Complaint: Headache Stated Complaint: Pain left side of face Time Seen by Provider: 09/18/23 09:27 Source: patient Mode of arrival: ambulatory History of Present Illness HPI Narrative: 33-year-old female with history of chronic ITP and currently being followed by Hematology as well as history of migraines and states that since she has had onset of left-sided migraine without aura but associated with photosensitivity as well as nausea, no sensitivity to sound, she has attempted Tylenol which works briefly but then the headache comes back, she denies any visual/speech disturbances, denies any gait instability and can not take ibuprofen due to the ITP. Related Data Previous Rx's ?Medication ?Instructions ?Recorded albuterol sulfate 2.5 mg/3 mL 2.5 mg (3 mL) inhalation Q6H PRN 02/25/21 (0.083 %) solution for nebulization shortness of breath or wheezing 30 days #360 mL miscellaneous medical supply #1 ea 05/04/21 acetaminophen 500 mg tablet 1,000 mg (2 x 500 mg) PO QID PRN 10/24/21 (Tylenol Extra Strength) fever or pain #14 tabs blood sugar diagnostic (FreeStyle #100 ea 08/31/22 Lite Strips) clotrimazole-betamethasone 1 1 appl topical BID itching 7 days 05/09/23 %-0.05 % topical cream #45 grams albuterol sulfate 90 mcg/actuation 2 puff PO Q4H PRN bronchospasm 30 08/19/23 aerosol inhaler days #6.7 grams hydrochlorothiazide 25 mg tablet 25 mg PO DAILY 90 days #90 tabs 09/15/23 Allergies Allergy/AdvReac Type Severity Reaction Status Date / Time amlodipine Allergy Unknown Hives Verified 09/18/23 09:02 amoxicillin [AMOXICILLIN] Allergy Unknown UNKNOWN Verified 09/18/23 09:02 aspirin [ASPIRIN] Allergy Unknown LOW Verified 09/18/23 09:02 PLATELETS, bleeding, ITP propranolol Allergy Unknown Hives Verified 09/18/23 09:02 Review of Systems Review of Systems: Pertinent positives and negatives as stated in HPI PMFSH Past Medical History Source: nursing notes reviewed Medical History Tinea versicolor Mucocele of maxillary sinus Epistaxis, recurrent Bartholin gland cyst Hypertension Asthma History of ITP Obesity, morbid, BMI 40.0-49.9 Surgical History H/O removal of cyst History of ectopic History of wisdom tooth extraction History of hemorrhoidectomy Family History Family History Father Hypertension Mother Hypertension Diabetes Sister Hypertension Fatty liver Maternal Grandmother Diabetes Hypertension Lung cancer Sister Prediabetes Maternal Grandfather Lung cancer Social History Social History Housing: Apartment Alcohol intake: current Alcohol intake frequency: does not drink Alcohol type: wine Patient Tobacco Use Status: Former Tobacco user Quit Date: 2011 Tobacco use type: Cigarette Smoked in Last 30 Days: Yes e-Cigarette/Vaping Use: Never Used Second Hand Smoke Exposure: No Use of substances other than those prescribed or required for medical reasons: No Substance Use Type: Marijuana Advance Directives: No Advance Directives Information Provided: No Do you have a plan to hurt others: No Plan Patient : No service: No Current occupational status: unemployed Sexual orientation: Straight/Heterosexual Gender identity: Female Cognitive needs: No Hearing needs: No Vision needs: Yes (wear glasses) Physical Exam Vital Signs: Vital Signs: Last Vital Signs Temp 97.3 F 09/18/23 12:20 Pulse 75 09/18/23 12:20 Resp 16 09/18/23 12:20 BP 148/91 H 09/18/23 12:20 Pulse Ox 97 09/18/23 12:20 O2 Del Method Room Air 09/18/23 12:20 BMI result Body Mass Index 45.1 VITAL SIGNS: Reviewed. GENERAL: Well developed, well nourished, in no acute distress. HEAD: Normocephalic/atraumatic EYES: PERRLA, EOMI intact without pain, no nystagmus/pallor/icterus noted EARS: Ext canals without abnormality, TMs non-bulging and non-erythematous NOSE: Nares patent bilateral OROPHARYNX: no oral lesions noted, posterior pharynx clear and non-erythematous without noted tonsillar enlargement/erythema/exudates, no noted dental caries, patient has left TMJ but no tenderness on palpation up over the temporal area or along the angle of the mandible NECK: Supple, no adenopathy LUNGS: Normal breath sounds. No adventitious sounds or accessory muscle use. SpO2<96> CARDIOVASCULAR: Regular rate and rhythm without noted murmurs ABDOMEN: Soft, non-tender, non-distended with bowel sounds. MUSCULOSKELETAL: No tenderness, deformities, or effusions noted on gross inspection. EXTREMITIES: No cyanosis, clubbing or edema. SKIN: Inspection of the skin reveals no rashes NEUROLOGIC: Alert and oriented x 4. Strength and sensation to light touch were grossly intact x 4, no facial asymmetry, no pronator drift, cranial nerves 2-12 are grossly intact. Medications Administered Discontinued Medications Generic Name Dose Route Start Last Admin Trade Name Freq PRN Reason Stop Dose Admin Acetaminophen 975 mg 09/18/23 10:32 09/18/23 11:03 Acetaminophen 325 Mg Tablet PO 09/18/23 10:33 975 mg ONCE ONE Administration Sodium Chloride 1,000 mls @ 999 mls/hr 09/18/23 10:45 09/18/23 12:28 Ns IV 09/18/23 11:45 Infused .Q1H1M [facility] Infusion Ondansetron HCl 4 mg 09/18/23 10:32 09/18/23 11:03 Ondansetron Hcl 4 Mg/2 Ml Vial IVPUSH 09/18/23 10:33 4 mg ONCE ONE Administration Sumatriptan Succinate 25 mg 09/18/23 11:50 09/18/23 12:06 Sumatriptan Succinate 25 Mg Tablet PO 09/18/23 11:51 25 mg ONCE ONE Administration Medical Decision Making Medical Decision Making MDM Narrative: 33-year-old female with history and clinical presentation most consistent with acute on chronic migraine exacerbation, limited treatment options in his never been on any sumatriptan previously for similar headache, no neurologic deficits noted. No concerns for giant cell temporal arteritis, no suspicion for acute TMJ flare and no evidence to suggest herpes zoster. Will provide patient with 1 L of IV fluids, antiemetics, Tylenol as well as low-dose sumatriptan and re-evaluate. I reviewed all investigations and hematologic indices are negative for leukocytosis/anemia/and platelets have significantly improved to 348. Chemistry indices negative for ALEKSANDR or electrolyte derangements in transaminases are chronically detectable. On re-evaluation after patient received sumatriptan she is feeling much better still has some residual pressure but photosensitivity/nausea and headache have resolved. Patient is discharged, all results discussed with her at bedside and she is directed to follow-up with her primary care doctor and discuss possible referral to Neurology. Differential Diagnosis Differential Diagnoses: The differential diagnosis associated with the presentation includes Please see the discussion above Admission/Observation Consideration of admission/observation: Escalation of care including admission/observation considered Please see the discussion above Lab Data 09/18/23 10:52 09/18/23 10:52 Labs: Lab Results 09/18/23 Range/Units 10:52 WBC 9.2 (4.8-10.8) X10*3/uL RBC 5.02 (4.20-5.50) X10*6/uL Hgb 13.7 (12.0-16.0) g/dl Hct 41.4 (37.0-47.0) % MCV 82.5 (80.0-98.0) fL MCH 27.3 (27.0-33.0) pg MCHC 33.1 (31.0-35.0) g/dl RDW 13.4 (11.0-16.0) % Plt Count 348 D (160-400) X10*3/uL MPV 12.2 (9.4-12.3) fL Immature Gran % (Auto) 0.4 (0.0-0.4) % Neut % (Auto) 81.3 H (45-73) % Lymph % (Auto) 12.3 L (20-40) % [place] % (Auto) 4.1 (2-11) % Eos % (Auto) 1.4 (0-4) % Baso % (Auto) 0.5 (0-2) % Lymph # (Auto) 1.1 L (1.2-4.9) X10*3/uL [place] # (Auto) 0.4 (0.1-1.2) X10*3/uL Eos # (Auto) 0.1 (0.0-0.4) X10*3/uL Baso # (Auto) 0.1 (0.0-0.2) X10*3/uL Abs Immat Gran (auto) 0.04 H (0.00-0.03) X10*3/uL Absolute Neuts (auto) 7.5 (2.0-8.3) x10*3/uL Absolute Nucleated RBC 0.000 (0.0-0.012) X10*3/uL Nucleated RBC % (auto) 0.0 (0.0-0.2) /100WBC Sodium 139 (135-145) mmol/L Potassium 3.4 (3.3-5.1) mmol/L Chloride 100 (96-108) mmol/L Carbon Dioxide 28 (22-29) mmol/L Anion Gap 14 (12-20) BUN 9 (9-16) mg/dL Creatinine 0.92 (0.5-1.4) mg/dL Estim Creat Clear Calc 101.7 Estimated GFR > 60 Random Glucose 181 H (60-115) mg/dL Calcium 9.5 (8.4-10.2) mg/dL Total Bilirubin 0.5 (0.0-1.0) mg/dL AST 33 H (5-31) U/L ALT 44 H (0-31) U/L Alkaline Phosphatase 85 (39-117) U/L Total Protein 6.7 (6.5-8.0) g/dL Albumin 4.1 (3.5-5.0) g/dL External Record Review External record reviewed: Outpatient record and Prior outpatient labs Critical Care Time Critical Care Time Critical Care Time: Yes Total Critical Care Time: 45 Attestation: I personally attest to this time spent taking care of the patient. Discharge Plan Discharge Clinical Impression: Migraine Patient Disposition: Home, Self-Care Instructions: Migraine Headache (ED) Additional Instructions: 1. Resume all home medications as prescribed. 2. Recommend follow-up with your primary care doctor and discussion for possible referral to Neurology. Return to the ER for any worsening symptoms. Prescriptions: No Action (DME) FreeStyle Lite Strips Strip See Rx Instructions .ROUTE .MEDSUPPLY Qty: 100 0RF Rx Instructions: once daily albuterol sulfate 90 mcg/actuation HFA aerosol inhaler 2 puff PO Q4H PRN (Reason: bronchospasm) 30 Days Qty: 6.7 3RF hydrochlorothiazide 25 mg tablet 25 mg PO DAILY 90 Days Qty: 90 1RF acetaminophen [Tylenol Extra Strength] 500 mg tablet 1,000 mg PO QID PRN (Reason: fever or pain) Qty: 14 0RF albuterol sulfate 2.5 mg /3 mL (0.083 %) solution for nebulization 2.5 mg inhalation Q6H PRN (Reason: shortness of breath or wheezing) 30 Days Qty: 360 3RF (DME) miscellaneous medical supply Misc See Rx Instructions miscellaneous .MEDSUPPLY Qty: 1 0RF Rx Instructions: As directed clotrimazole-betamethasone 1-0.05 % cream 1 appl topical BID 7 Days Qty: 45 0RF Rx Instructions: apply externally a thin coat to the area Referrals: Rajesh Caraballo PA-C [Primary Care Provider] - Print Language: Belgian
[2023-09-18] MEDS: SUMAtriptan succinate 25 MG TABLET PO (12:06)
[2023-09-18 12:20] VITALS: BP 148/91; PULSE 75; RESP 16; TEMP 36.3; O2SAT 97
[2023-09-18 13:28] VITALS: BP 148/91; PULSE 75; RESP 16; TEMP 36.3; O2SAT 97
== END 2023-09-18 13:29 | disposition home or self-care (01) ==
PROVIDERS: Emergency Provider Student in an Organized Health Care Education/Training Program; PCP Physician Assistant
DX: G43.909 Migraine, unspecified, not intractable, without status migrainosus (principal); I10 Essential (primary) hypertension
CPT/HCPCS: 36415; 80053; 85025; 99284; J2405

== ENCOUNTER 2023-09-22 10:51 | Outpatient (AMB) | payer OTHER, SELFPAY ==
[2023-09-22 10:52] VITALS: BP 142/88; PULSE 111; O2SAT 98; BMI 44.5
--- NOTE | 2023-09-22 10:52 | MHC.PC.OV ---
Vital Signs 09/22/23 10:52 Height 5 ft 2 in Weight 243 lb 2 oz BMI 44.5 BP 142/88 H Blood Pressure Location Lt brachial Position Sitting Pulse 111 H Pulse Source Pulse Oximeter Pulse Oximetry (%) 98 Oxygen Delivery Method Room Air Intake Visit Reasons: [facility] [place] 09/17 migraines Allergies amlodipine Allergy (Unknown, Verified 09/22/23 11:17) Hives amoxicillin [AMOXICILLIN] Allergy (Unknown, Verified 09/22/23 11:17) UNKNOWN aspirin [ASPIRIN] Allergy (Unknown, Verified 09/22/23 11:17) LOW PLATELETS, bleeding, ITP propranolol Allergy (Unknown, Verified 09/22/23 11:17) Hives Medication List - Last Reconciled 09/22/23 by Rajesh Caraballo PA-C acetaminophen (Tylenol Extra Strength) 1,000 mg (2 x 500 mg) PO QID PRN albuterol sulfate 90 mcg/actuation 2 puffs PO Q4H PRN 30 days albuterol sulfate 2.5 mg (3 mL) inhalation Q6H PRN 30 days blood sugar diagnostic (FreeStyle Lite Strips) once daily clotrimazole-betamethasone 1-0.05 % 1 appl topical BID 7 days eltrombopag olamine (Promacta) 50 mg PO DAILY hydrochlorothiazide 25 mg PO DAILY 90 days miscellaneous medical supply As directed sumatriptan succinate take 1 tab at onset of headache; if no relief may repeat 1 tab after at least 2 hrs; max = 4 tabs/24 hr PO 30 days Tobacco use date assessed: 12/23/22 Dental Screening Dental Screen Date: 02/28/23 [facility] 09/17 migraines HPI Details Patient is a 33-year-old female here today for an ER follow-up visit. Patient was seen for acute migraine, was given IV fluids. She reports her headache did go away treatment though migraine returned back. She denies any auras, nausea or vomiting. Of note did start new medication( Promacta) for her platelet counts which may be a cause of her headaches. [facility] Medical History Tinea versicolor Mucocele of maxillary sinus Epistaxis, recurrent Bartholin gland cyst Hypertension Asthma History of ITP Obesity, morbid, BMI 40.0-49.9 Surgical History H/O removal of cyst History of ectopic History of wisdom tooth extraction History of hemorrhoidectomy Family History Father Hypertension Mother Hypertension Diabetes Sister Hypertension Fatty liver Maternal Grandmother Diabetes Hypertension Lung cancer Sister Prediabetes Maternal Grandfather Lung cancer Social History Housing: Apartment Alcohol intake: current Alcohol intake frequency: does not drink Alcohol type: wine Patient Tobacco Use Status: Former Tobacco user Quit Date: 2011 Tobacco use type: Cigarette e-Cigarette/Vaping Use: Never Used Second Hand Smoke Exposure: No Substance Use Type: Marijuana service: No Current occupational status: unemployed Sexual orientation: Straight/Heterosexual Gender identity: Female Cognitive needs: No Hearing needs: No Vision needs: Yes (wear glasses) Female Reproductive History Menstrual Age of Menarche: 8 Questionnaire PHQ-9 Over the last 2 weeks, how often have you been bothered by any of the following problems? 1. Little interest or pleasure in doing things: nearly every day 2. Feeling down, depressed, or hopeless: more than half the days 3. Trouble falling or staying asleep, or sleeping too much: several days 4. Feeling tired or having little energy: several days 5. Poor appetite or overeating: several days 6. Feeling bad about yourself - or that you are a failure or have let yourself or your family down: nearly every day 7. Trouble concentrating on things, such as reading the newspaper or watching television: nearly every day 8. Moving or speaking so slowly that other people could have noticed. Or the opposite - being so fidgety or restless that you have been moving around a lot more than usual: several days 9. Thoughts that you would be better off or of hurting yourself in some way: not at all Total score: 15 Depression Screening Interpretation: Positive Depression Screening Follow-up: Existing condition Depression Screening Done: Yes 29128 - PHQ-9 Billing: Yes Source: Developed by Drs. Jass Sandoval, Anahi Johnston, Isai Kumari and colleagues, with an educational kanu from [employer]. Thrive Questionnaire Date Thrive assessed: 09/22/23 I am a: Patient What is your living situation today?: I have a steady place to live Within the past 12 months, did the food you bought not last and you didn't have the money to get more?: Never true Within the past 12 months, did you worry whether your food would run out before you got money to buy more?: Never true Do you have trouble paying for medicines?: No Do you have trouble getting transportation to medical appointments?: No Do you have trouble paying your heating and electricity bill?: No Do you have trouble taking care of your child, family member or friend?: No Do you have trouble with day-to-day activities such as bathing, preparing meals, shopping, managing finances, etc.?: No Are you currently unemployed and looking for a job?: No Are you interested in more education?: No Please select the resources that you would like help with: None Currently or been in a relationship where the following occur: no concerns reported THRIVE Score: 0 AUDIT C Alcohol Use Questionnaire (AUDIT-C) 1. How often do you have a drink containing alcohol?: Monthly or less 2. How many drinks containing alcohol do you have on a typical day when you are drinking?: 1 or 2 3. How often do you have six or more drinks on one occasion?: Never Total Score: 1 SHANNEN-7 AMB Questionnaire SHANNEN-7 Date SHANNEN - 7 assessed: 09/22/23 Feeling nervous, anxious, or on edge: 3 = Nearly every day Not being able to stop or control worryin = Nearly every day Worrying too much about different things: 3 = Nearly every day Trouble relaxin = Nearly every day Being so restless that it is hard to sit still: 2 = More than half the days Becoming easily annoyed or irritable: 3 = Nearly every day Feeling afraid as if something awful might happen: 3 = Nearly every day Total SHANNEN-7 score (0-4 normal; 5-9 mild; 10-14 moderate; 15-21 severe): 20 Source: Developed by Drs. Jass Sandoval, Anahi Johnston, Isai Kumari and colleagues, with an educational kanu from [employer]. SHANNEN-7 Assessment Billing SHANNEN-7 Assessment Tool: SHANNEN-7 Assessment 71907 Review of Systems Const Reports headache(s) Eyes Denies loss of vision ENT Denies vertigo, Denies dizziness, Reports headache(s) and Denies sore throat Card Denies chest pain, Denies leg edema and Denies lightheadedness Resp Denies cough, Denies hemoptysis and Denies wheezing GI Denies abdominal pain, Denies melena, Denies constipation, Denies diarrhea and Denies vomiting Denies urinary frequency, Denies dysuria and Denies urinary urgency Musc Denies arthralgias, Denies joint swelling, Denies numbness and Denies tingling Neuro Denies Abnormal speech present, Denies behavioral changes, Denies vertigo, Denies dizziness, Reports headache(s), Denies loss of vision, Denies memory loss, Denies numbness and Denies tingling Psych Denies anxiety, Denies behavioral changes, Denies depression, Denies memory loss and Denies panic attacks Roc/Lymph Denies easy bleeding and Denies easy bruising Aller/Immun Denies wheezing Physical exam (Primary Care) Vital Signs: Last Vital Signs Pulse 111 H 09/22/23 10:52 BP 142/88 H 09/22/23 10:52 Pulse Ox 98 09/22/23 10:52 Oxygen Delivery Method Room Air 09/22/23 10:52 BMI result Body Mass Index 44.5 Tobacco/Smoking Status: Tobacco use Status Tobacco use date assessed 12/23/22 09/22/23 10:52 Patient Tobacco Use Status Former Tobacco user 09/22/23 10:52 Tobacco use type Cigarette 09/22/23 10:52 e-Cigarette/Vaping Use Never Used 09/22/23 10:52 PHQ-9: PHQ-9 Score PHQ-9: Total score 15 09/22/23 11:12 Depression Screening Interpretation: Positive Depression Screening Follow-up: Existing condition Thrive Assessment: Date of Thrive Assessment Date Thrive assessed 09/22/23 09/22/23 11:07 Currently or been in a relationship where the following occur: no concerns reported Const General: healthy appearing, no acute distress, alert and awake Nutritional Appearance: well nourished Orientation/consciousness: oriented to person, oriented to place and oriented to time HENMT Ears: TM's normal bilaterally General nose exam: Normal nasal mucous membranes and turbinates present Eyes Conjunctivae: conjunctivae normal Sclerae: sclerae normal Pupils: Equal, round and reactive pupils present Neck Neck: Yes no lymphadenopathy and Yes no JVD Thyroid: Thyroid normal Carotids: no bruits Resp Effort & Inspection: normal respiratory effort and not tachypneic Auscultation: no crackles, no rales, no rhonchi and no wheezes Cardio Rate: regular rate Rhythm: regular rhythm Heart sounds: no murmurs and normal S1 and S2 GI Palpation (GI): Soft to palpation, nontender, no hepatomegaly and no splenomegaly Auscultation: normal bowel sounds Skin General skin exam: no rashes or lesions noted and dry skin Neuro General: oriented to person, oriented to place and oriented to time Cranial nerves: Yes Equal, round and reactive pupils present Speech: No Abnormal speech present Gait exam (Neuro): Normal gait present Motor exam (neuro): no tremor noted Extrem Right upper extremity: full ROM Left upper extremity: full ROM Right lower extremity: full ROM; no edema Left lower extremity: full ROM; no edema Psych Mental Status: mental status grossly normal Speech and movement: Normal speech and movement present Affect: normal affect Attitude: cooperative Thought process: Normal thought process present Assessment and Plan Assessment & Plan (1) Migraine: Code(s): G43.909 - Migraine, unspecified, not intractable, without status migrainosus Qualifiers: Intractability: not intractable Migraine type: unspecified Status migrainosus presence: with status migrainosus Qualified Code(s): G43.901 - Migraine, unspecified, not intractable, with status migrainosus Plan: Patient's signs and symptoms most consistent with migraine disorder. Was given sumatriptan 25 mg while in the ER which helped temporarily though migraines have come back. Unclear trigger at this time though could be related to new medication Promacta for her platelet counts. Will supply patient with sumatriptan 50 mg for migraine . (2) Anxiety: Code(s): F41.9 - Anxiety disorder, unspecified Plan: Patient shannen 7 score positive for moderate anxiety which has been existing condition for her. She does speak with a mental health therapist weekly though now wants to see psychiatry. She has been tried medications in the past though had a lot of side effects. (3) MDD (major depressive disorder), recurrent episode, moderate: Code(s): F33.1 - Major depressive disorder, recurrent, moderate Plan: Patient's PHQ-9 score positive for depression which has been existing condition for her. She does speak with a mental health therapist. She continues to manage her depression on her own. Does have a supportive significant other. Medications: New sumatriptan succinate take 1 tab at onset of headache; if no relief may repeat 1 tab after at least 2 hrs; max = 4 tabs/24 hr PO 10 tabs 1RF 30 days G43.901 - Migraine, unspecified, not intractable, with status migrainosus Refilled albuterol sulfate 2.5 mg (3 mL) inhalation Q6H PRN 360 mL 3RF shortness of breath or wheezing 30 days J45.20 - Mild intermittent asthma, uncomplicated Coding Level of Care Code Est Pt Level 4 (04437) Diagnoses Migraine with status migrainosus, not intractable, unspecified migraine type G43.901 Intractability: not intractable Migraine type: unspecified Status migrainosus presence: with status migrainosus Anxiety F41.9 MDD (major depressive disorder), recurrent episode, moderate F33.1 Additional Codes SHANNEN-7 Assessment Billing - SHANNEN-7 Assessment Tool: SHANNEN-7 Assessment [id number] ([id number])
== END 2023-09-22 11:24 | disposition home or self-care (01) ==
PROVIDERS: PCP Physician Assistant; Visit Provider Physician Assistant
DX: G43.901 Migraine, unspecified, not intractable, with status migrainosus (principal); F41.9 Anxiety disorder, unspecified; F33.1 Major depressive disorder, recurrent, moderate
CPT/HCPCS: 99214

== ENCOUNTER 2023-10-06 23:17 | Emergency (ER) | payer OTHER, SELFPAY ==
[2023-10-06 23:26] VITALS: BP 156/98; PULSE 98; RESP 20; TEMP 36.8; O2SAT 98; BMI 45.4
[2023-10-07] MEDS: diphenhydrAMINE HCL 50 MG/ML VIAL 25 MG IVPUSH (01:54)
[2023-10-07 01:55] VITALS: RESP 18
[2023-10-07] MEDS: Morphine Sulfate 4 MG/ML CARTRIDGE IVPUSH (01:55)
[2023-10-07] MEDS: Metoclopramide HCl 10 MG/2 ML VIAL IVPUSH (02:00)
[2023-10-07] MEDS: 0.9 % Sodium Chloride 1,000 ML 999 ML IVCONT (02:03)
--- NOTE | 2023-10-07 02:07 | ED.HA ---
HPI - Headache General Chief Complaint: Headache Stated Complaint: Migraine? Head pain Time Seen by Provider: 10/07/23 01:28 Source: patient Mode of arrival: ambulatory Limitations: no limitations History of Present Illness HPI Narrative: Patient comes to the emergency room complaining of migraine. Patient states that it started around 12 hours ago. Patient tried taking sumatriptan without any relief. Patient complaining of nausea, vomiting and photophobia. Denies any head trauma. Patient states that she got recently off medication for thrombocytopenia, believes that the medication was causing migraine exacerbations. Patient states that she has been off the medication for a few days now. Patient states that in her last visit to her doctor, her platelets were actually elevated. Related Data Home Medications ?Medication ?Instructions ?Recorded ?Confirmed eltrombopag olamine 50 mg tablet 50 mg PO DAILY 09/22/23 09/22/23 (Promacta) Previous Rx's ?Medication ?Instructions ?Recorded miscellaneous medical supply #1 ea 05/04/21 acetaminophen 500 mg tablet 1,000 mg (2 x 500 mg) PO QID PRN 10/24/21 (Tylenol Extra Strength) fever or pain #14 tabs blood sugar diagnostic (FreeStyle #100 ea 08/31/22 Lite Strips) clotrimazole-betamethasone 1 1 appl topical BID itching 7 days 05/09/23 %-0.05 % topical cream #45 grams albuterol sulfate 90 mcg/actuation 2 puff PO Q4H PRN bronchospasm 30 08/19/23 aerosol inhaler days #6.7 grams hydrochlorothiazide 25 mg tablet 25 mg PO DAILY 90 days #90 tabs 09/15/23 albuterol sulfate 2.5 mg/3 mL 2.5 mg (3 mL) inhalation Q6H PRN 09/22/23 (0.083 %) solution for nebulization shortness of breath or wheezing 30 days #360 mL sumatriptan succinate 50 mg tablet See Rx Instructions PO .COMPLEX 30 09/22/23 days #10 tabs okzukcolct-iklitoyvmpbab-cnnsiegc 1 cap PO TID PRN pain #10 caps 10/07/23 50 mg-300 mg-40 mg capsule (Fioricet) Allergies Allergy/AdvReac Type Severity Reaction Status Date / Time amlodipine Allergy Unknown Hives Verified 10/06/23 23:30 amoxicillin [AMOXICILLIN] Allergy Unknown UNKNOWN Verified 10/06/23 23:30 aspirin [ASPIRIN] Allergy Unknown LOW Verified 10/06/23 23:30 PLATELETS, bleeding, ITP propranolol Allergy Unknown Hives Verified 10/06/23 23:30 Review of Systems Review of Systems: Constitutional : No Weight loss, No Fever, No Chills, No Night Sweats, No Fatigue, No Malaise ENT/Mouth : No Hearing loss, No Ear Pain, No Nasal Congestion, No Sinus Pain, No Hoarseness, No sore throat, No Rhinorrhea, No Swallowing Difficulty Eyes: Complaining of photophobia, No Eye Pain, No Swelling, No Redness, No Foreign Body, No Discharge, No Vision Changes Cardiovascular : No Chest Pain, No SOB, No Dyspnea on Exertion, No Orthopnea, No Edema, No Palpitations Respiratory : No Cough, No Sputum, No Wheezing, No Smoke Exposure, No Dyspnea Gastrointestinal : Complaining of nausea and vomiting,, No Diarrhea, No Constipation, No abdominal Pain, No Hematochezia, No Melena Genitourinary : no irregular bleeding, No Dysuria, No Urinary Frequency, No Hematuria, No Urinary Incontinence, No Urgency, No Flank Pain, No Urinary Flow Changes, No Hesitancy Musculoskeletal : No joint pain, No Myalgias, No Joint Swelling Skin : No Skin Lesions, No rash Neuro : No Weakness, No Numbness, No Paresthesias, No Loss of Consciousness, No Dizziness, complaining of a migraine Headache Psych : No Anxiety/Panic, No Depression, No SI/HI/AH/VH, No Social Issues, Heme/Lymph: No Bruising, No Bleeding,No Lymphadenopathy Endocrine : No Polyuria, No Polydipsia, No Temperature Intolerance [facility] Past Medical History Medical History Tinea versicolor Mucocele of maxillary sinus Epistaxis, recurrent Bartholin gland cyst Hypertension Asthma History of ITP Obesity, morbid, BMI 40.0-49.9 Surgical History H/O removal of cyst History of ectopic History of wisdom tooth extraction History of hemorrhoidectomy Family History Family History Father Hypertension Mother Hypertension Diabetes Sister Hypertension Fatty liver Maternal Grandmother Diabetes Hypertension Lung cancer Sister Prediabetes Maternal Grandfather Lung cancer Social History Social History Housing: Apartment Alcohol intake: current Alcohol intake frequency: does not drink Alcohol type: wine Patient Tobacco Use Status: Former Tobacco user Quit Date: 2011 Tobacco use type: Cigarette e-Cigarette/Vaping Use: Never Used Second Hand Smoke Exposure: No Substance Use Type: Marijuana Advance Directives: No Advance Directives Information Provided: Yes Do you have a plan to hurt others: No Plan service: No Current occupational status: unemployed Sexual orientation: Straight/Heterosexual Gender identity: Female Cognitive needs: No Hearing needs: No Vision needs: Yes (wear glasses) Physical Exam Vital Signs: Vital Signs: Last Vital Signs Temp 98.2 F 10/06/23 23:26 Pulse 98 10/06/23 23:26 Resp 18 10/07/23 01:55 BP 156/98 H 10/06/23 23:26 Pulse Ox 98 10/06/23 23:26 O2 Del Method Room Air 10/06/23 23:26 BMI result Body Mass Index 45.4 Const: Other: Appearance: Alert. Oriented X3. No acute distress. Eyes: Pupils equal, round and reactive to light. Patient has photophobia ENT: Pharynx normal. Neck: Normal inspection. Neck supple. No lymph nodes noted. No crepitus CVS: Normal heart rate and rhythm. Pulses normal. Normal S1 and S2 Respiratory: No respiratory distress. Breath sounds normal. No Wheezing. No rales Abdomen: Soft and nontender. No rigidity. No distention. Skin: Skin warm and dry. Normal skin color. Normal skin turgor. Extremities: No lower extremity edema. No Lacerations. No Rash Neuro: Oriented X 3. No motor deficit. No sensory deficit. Moving all extremities. No slurred speech. CN 2 through 12 grossly intact Psych: calm, cooperative, normal affect Course Course Course Narrative: Patient receiving IV fluids, Phenergan, morphine And Benadryl IV Medications Administered Discontinued Medications Generic Name Dose Route Start Last Admin Trade Name Freq PRN Reason Stop Dose Admin Diphenhydramine HCl 25 mg 10/07/23 01:35 10/07/23 01:54 Diphenhydramine Hcl 50 Mg/Ml Vial IVPUSH 10/07/23 01:36 25 mg ONCE ONE Administration Sodium Chloride 1,000 mls @ 999 mls/hr 10/07/23 01:35 10/07/23 02:03 Ns IVCONT 10/07/23 02:35 999 mls/hr .Q1H1M ONE Administration Metoclopramide HCl 10 mg 10/07/23 01:35 10/07/23 02:00 Metoclopramide Hcl 10 Mg/2 Ml Vial IVPUSH 10/07/23 01:36 10 mg ONCE ONE Administration Morphine Sulfate 4 mg 10/07/23 01:35 10/07/23 01:55 Morphine Sulfate 4 Mg/Ml Cartridge IVPUSH 10/07/23 01:36 4 mg ONCE ONE Administration Protocol Medical Decision Making Medical Decision Making MDM Narrative: After patient received the above-mentioned medications, patient feeling better. -discussed the patient, the given that she has migraine headaches resistant to p.o. treatment, it would be best to have her follow-up with neurology. Differential Diagnosis Differential Diagnoses: The differential diagnosis associated with the presentation includes (Tension headache, migraine headache, medication side effect) Admission/Observation Consideration of admission/observation: Escalation of care including admission/observation considered (Given patient's initial symptoms, observation was considered) Critical Care Time Critical Care Time Critical Care Time: Yes Total Critical Care Time: 35 Attestation: I have personally provided critical care time. Time includes review of lab data, radiology results, discussion with consultants, and monitoring for potential decompensation. Intervention performed as documented. Discharge Plan Discharge Clinical Impression: Migraine Patient Disposition: Home, Self-Care Instructions: Migraine Headache (ED) Additional Instructions: Please follow-up with your primary care physician tomorrow. If you have any worsening or new symptoms, please return to the emergency room or call 911 Prescriptions: New hbdjjuofnx-iqundvnfxzjaw-kxqe [Fioricet] 50-300-40 mg capsule 1 cap PO TID PRN (Reason: pain) Qty: 10 0RF No Action (DME) FreeStyle Lite Strips Strip See Rx Instructions .ROUTE .MEDSUPPLY Qty: 100 0RF Rx Instructions: once daily albuterol sulfate 90 mcg/actuation HFA aerosol inhaler 2 puff PO Q4H PRN (Reason: bronchospasm) 30 Days Qty: 6.7 3RF hydrochlorothiazide 25 mg tablet 25 mg PO DAILY 90 Days Qty: 90 1RF acetaminophen [Tylenol Extra Strength] 500 mg tablet 1,000 mg PO QID PRN (Reason: fever or pain) Qty: 14 0RF sumatriptan succinate 50 mg tablet See Rx Instructions PO .COMPLEX 30 Days Qty: 10 1RF Rx Instructions: take 1 tab at onset of headache; if no relief may repeat 1 tab after at least 2 hrs; max = 4 tabs/24 hr PO albuterol sulfate 2.5 mg /3 mL (0.083 %) solution for nebulization 2.5 mg inhalation Q6H PRN (Reason: shortness of breath or wheezing) 30 Days Qty: 360 3RF Promacta 50 mg tablet 50 mg PO DAILY (DME) miscellaneous medical supply Misc See Rx Instructions miscellaneous .MEDSUPPLY Qty: 1 0RF Rx Instructions: As directed clotrimazole-betamethasone 1-0.05 % cream 1 appl topical BID 7 Days Qty: 45 0RF Rx Instructions: apply externally a thin coat to the area Stand Alone Forms: Work/School Release Print Language: Frisian
[2023-10-07 03:47] VITALS: BP 133/86; PULSE 81; RESP 16; TEMP 36.6; O2SAT 100
[2023-10-07 03:50] VITALS: BP 133/86; PULSE 81; RESP 16; TEMP 36.6; O2SAT 98
== END 2023-10-07 03:51 | disposition home or self-care (01) ==
PROVIDERS: Emergency Provider Emergency Medicine; PCP Physician Assistant
DX: G43.909 Migraine, unspecified, not intractable, without status migrainosus (principal); R11.2 Nausea with vomiting, unspecified; H53.149 Visual discomfort, unspecified; I10 Essential (primary) hypertension; Z79.899 Other long term (current) drug therapy
CPT/HCPCS: 96374; 96375; 99284; 99285; J1200; J2270; J2765

== ENCOUNTER 2024-08-01 11:52 | Outpatient (AMB) | payer MEDICARE, MEDICAID, SELFPAY ==
[2024-08-01 11:54] VITALS: BP 134/84; PULSE 110; RESP 20; TEMP 36.9; O2SAT 99; BMI 43.1
--- NOTE | 2024-08-01 11:54 | MHC.PC.OV ---
Vital Signs 08/01/24 11:54 Height 5 ft 2 in Weight 235 lb 12.8 oz BMI 43.1 BP 134/84 Blood Pressure Location Lt brachial Position Sitting Respiration 20 Pulse 110 H Pulse Source Pulse Oximeter Temp 98.4 F Temp Source Temporal Artery Scan Pulse Oximetry (%) 99 Oxygen Delivery Method Room Air Intake Visit Reasons: stomach pain Conference Reservationist Required: No Accompanied by: Spouse Is last menstrual period known: Yes Last menstrual period: 08/01/24 Allergies amlodipine Allergy (Unknown, Verified 08/01/24 12:13) Hives amoxicillin [AMOXICILLIN] Allergy (Unknown, Verified 08/01/24 12:13) UNKNOWN aspirin [ASPIRIN] Allergy (Unknown, Verified 08/01/24 12:13) LOW PLATELETS, bleeding, ITP propranolol Allergy (Unknown, Verified 08/01/24 12:13) Hives Medication List - Last Reconciled 08/01/24 by Rajesh Caraballo PA-C albuterol sulfate 2.5 mg (3 mL) inhalation Q6H PRN 30 days albuterol sulfate 90 mcg/actuation 2 puffs PO Q4H PRN 30 days blood sugar diagnostic (FreeStyle Lite Strips) once daily eltrombopag olamine (Promacta) 50 mg PO .weekly hydrochlorothiazide 25 mg PO DAILY 90 days miscellaneous medical supply As directed omeprazole 20 mg PO DAILY triamcinolone acetonide 0.1% 1 appl topical BID Tobacco use date assessed: 08/01/24 Dental Screening Dental Screen Date: 08/01/24 Did you have a dental visit in the last 12 months?: Yes Did you have a dental problem in the last 6 months where you did not have access to dental care?: No Was dental information given to patient?: Patient has dentist HPI stomach pain HPI Details The patient is a 33-year-old female presenting with stomach pain and raised skin lesions on her elbows and knees. The stomach pain began in early May 2024 and is described as mid-epigastric with suspected GERD involvement. She has been prescribed omeprazole 20 mg though has not been particularly effective on reducing in a of her abdominal symptoms.. Significant exacerbation of symptoms followed an event in early May where alcohol consumption correlated with intense pain and gastrointestinal disturbances. Bumps on her elbows and knees have become noticeable and darker this month. Abdominal pain with potential gallbladder involvement has also been noted in her history without definitive conclusions. PFSH Medical History Tinea versicolor Mucocele of maxillary sinus Epistaxis, recurrent Bartholin gland cyst Hypertension Asthma History of ITP Obesity, morbid, BMI 40.0-49.9 Surgical History H/O removal of cyst History of ectopic History of wisdom tooth extraction History of hemorrhoidectomy Family History Father Hypertension Mother Hypertension Diabetes Sister Hypertension Fatty liver Maternal Grandmother Diabetes Hypertension Lung cancer Sister Prediabetes Maternal Grandfather Lung cancer Social History Housing: Apartment Alcohol intake: current Alcohol intake frequency: does not drink Alcohol type: wine Patient Tobacco Use Status: Former Tobacco user Tobacco use type: Cigarette e-Cigarette/Vaping Use: Never Used Second Hand Smoke Exposure: No Substance Use Type: Marijuana service: No Current occupational status: unemployed Sexual orientation: Straight/Heterosexual Gender identity: Female Cognitive needs: No Hearing needs: No Vision needs: Yes (wear glasses) Female Reproductive History Menstrual Age of Menarche: 8 Date of last menstrual period: 08/01/24 Questionnaire PHQ-9 Over the last 2 weeks, how often have you been bothered by any of the following problems? 1. Little interest or pleasure in doing things: several days 2. Feeling down, depressed, or hopeless: several days 3. Trouble falling or staying asleep, or sleeping too much: more than half the days 4. Feeling tired or having little energy: not at all 5. Poor appetite or overeating: several days 6. Feeling bad about yourself - or that you are a failure or have let yourself or your family down: several days 7. Trouble concentrating on things, such as reading the newspaper or watching television: several days 8. Moving or speaking so slowly that other people could have noticed. Or the opposite - being so fidgety or restless that you have been moving around a lot more than usual: several days 9. Thoughts that you would be better off or of hurting yourself in some way: not at all Total score: 8 97429 - PHQ-9 Billing: Yes Source: Developed by Drs. Jass Sandoval, Anahi Johnston, Isai Kumari and colleagues, with an educational kanu from [employer]. Thrive Questionnaire Date Thrive assessed: 08/01/24 I am a: Patient What is your living situation today?: I have a steady place to live Within the past 12 months, did the food you bought not last and you didn't have the money to get more?: Never true Within the past 12 months, did you worry whether your food would run out before you got money to buy more?: Never true Do you have trouble paying for medicines?: No Do you have trouble getting transportation to medical appointments?: No Do you have trouble paying your heating and electricity bill?: No Do you have trouble taking care of your child, family member or friend?: No Do you have trouble with day-to-day activities such as bathing, preparing meals, shopping, managing finances, etc.?: No Are you currently unemployed and looking for a job?: No Are you interested in more education?: No Please select the resources that you would like help with: None Currently or been in a relationship where the following occur: No concerns reported THRIVE Score: 0 AUDIT C Alcohol Use Questionnaire (AUDIT-C) 1. How often do you have a drink containing alcohol?: Never 3. How often do you have six or more drinks on one occasion?: Never Total Score: 0 SHANNEN-7 AMB Questionnaire SHANNEN-7 Date SHANNEN - 7 assessed: 08/01/24 Feeling nervous, anxious, or on edge: 3 = Nearly every day Not being able to stop or control worryin = Nearly every day Worrying too much about different things: 3 = Nearly every day Trouble relaxin = Nearly every day Being so restless that it is hard to sit still: 1 = Several days Becoming easily annoyed or irritable: 2 = More than half the days Feeling afraid as if something awful might happen: 2 = More than half the days Total SHANNEN-7 score (0-4 normal; 5-9 mild; 10-14 moderate; 15-21 severe): 17 Source: Developed by Anahi Renner Kurt Kroenke and colleagues, with an educational kanu from [employer]. SHANNEN-7 Assessment Billing SHANNEN-7 Assessment Tool: SHANNEN-7 Assessment 95468 Review of Systems Const Denies headache(s) Eyes Denies loss of vision ENT Denies vertigo, Denies dizziness, Denies headache(s) and Denies sore throat Card Denies chest pain, Denies leg edema and Denies lightheadedness Resp Denies cough, Denies hemoptysis and Denies wheezing GI Denies abdominal pain, Denies melena, Denies constipation, Denies diarrhea and Denies vomiting Denies urinary frequency, Denies dysuria and Denies urinary urgency Musc Denies arthralgias, Denies joint swelling, Denies numbness and Denies tingling Neuro Denies Abnormal speech present, Denies behavioral changes, Denies vertigo, Denies dizziness, Denies headache(s), Denies loss of vision, Denies memory loss, Denies numbness and Denies tingling Psych Denies anxiety, Denies behavioral changes, Denies depression, Denies memory loss and Denies panic attacks Roc/Lymph Denies easy bleeding and Denies easy bruising Aller/Immun Denies wheezing Physical exam (Primary Care) Vital Signs: Last Vital Signs Temp 98.4 F 08/01/24 11:54 Pulse 110 H 08/01/24 11:54 Resp 20 08/01/24 11:54 BP 134/84 08/01/24 11:54 Pulse Ox 99 08/01/24 11:54 Oxygen Delivery Method Room Air 08/01/24 11:54 BMI result Body Mass Index 43.1 Tobacco/Smoking Status: Tobacco use Status Tobacco use date assessed 08/01/24 08/01/24 12:05 Patient Tobacco Use Status Former Tobacco user 08/01/24 12:05 Tobacco use type Cigarette 08/01/24 12:05 e-Cigarette/Vaping Use Never Used 08/01/24 12:05 PHQ-9: PHQ-9 Score PHQ-9: Total score 8 08/01/24 12:13 Thrive Assessment: Date of Thrive Assessment Date Thrive assessed 08/01/24 08/01/24 12:05 Currently or been in a relationship where the following occur: No concerns reported Const General: healthy appearing, no acute distress, alert and awake Nutritional Appearance: well nourished Orientation/consciousness: oriented to person, oriented to place and oriented to time HENMT Ears: TM's normal bilaterally General nose exam: Normal nasal mucous membranes and turbinates present Eyes Conjunctivae: conjunctivae normal Sclerae: sclerae normal Pupils: Equal, round and reactive pupils present Neck Neck: Yes no lymphadenopathy and Yes no JVD Thyroid: Thyroid normal Carotids: no bruits Resp Effort & Inspection: normal respiratory effort and not tachypneic Auscultation: no crackles, no rales, no rhonchi and no wheezes Cardio Rate: regular rate Rhythm: regular rhythm Heart sounds: no murmurs and normal S1 and S2 GI Palpation (GI): Soft to palpation, Tenderness to palpation present (GI) in the epigastrum and in the RUQ, no hepatomegaly and no splenomegaly Auscultation: normal bowel sounds Skin General skin exam: no rashes or lesions noted and dry skin Neuro General: oriented to person, oriented to place and oriented to time Cranial nerves: Yes Equal, round and reactive pupils present Speech: No Abnormal speech present Gait exam (Neuro): Normal gait present Motor exam (neuro): no tremor noted Extrem Right upper extremity: full ROM Left upper extremity: full ROM Right lower extremity: full ROM; no edema Left lower extremity: full ROM; no edema Psych Mental Status: mental status grossly normal Speech and movement: Normal speech and movement present Affect: normal affect Attitude: cooperative Thought process: Normal thought process present Coding Level of Care Code Est Pt Level 3 (06189) Diagnoses Right lower quadrant abdominal pain R10.31 Abdominal location: right lower quadrant Additional Codes SHANNEN-7 Assessment Billing - SHANNEN-7 Assessment Tool: SHANNEN-7 Assessment [id number] ([id number]) PHQ-9 - 31534 - PHQ-9 Billing: Yes ([id number]) Assessment & Plan Assessment & Plan (1) Abdominal pain: Code(s): R10.9 - Unspecified abdominal pain Category: Medical Qualifiers: Abdominal location: right lower quadrant Qualified Code(s): R10.31 - Right lower quadrant pain Plan: Patient's physical exam positive for tenderness to the epigastrium and right upper quadrant to palpation. An abdominal ultrasound will be ordered to investigate gallbladder involvement further, with potential surgical referral. Orders: Orders Complete Blood Count no Diff 08/01/24 R10.31 - Right lower quadrant pain Comprehensive Met. Panel 08/01/24 R10.31 - Right lower quadrant pain US abdomen complete 08/01/24 R10.31 - Right lower quadrant pain Lipase 08/01/24 R10.31 - Right lower quadrant pain Medications: New ondansetron 4 mg PO Q8H 10 days PRN 30 tabs 0RF nausea and vomiting R10.31 - Right lower quadrant pain dicyclomine 20 mg PO TID 30 days 90 tabs 0RF R10.31 - Right lower quadrant pain
== END 2024-08-01 12:32 | disposition home or self-care (01) ==
LOC: HO.HMCH 11:52
PROVIDERS: PCP Physician Assistant; Visit Provider Physician Assistant
DX: R10.31 Right lower quadrant pain (principal)

== ENCOUNTER → 2024-08-01 11:52 | Outpatient (BNVA) | payer MEDICARE, MEDICAID, SELFPAY | PROVIDERS: PCP Physician Assistant; Visit Provider Physician Assistant | DX: R10.31 Right lower quadrant pain (principal) | CPT/HCPCS: 96127; 99212 ==

== ENCOUNTER 2024-08-02 11:32 | Outpatient (REF) | payer MEDICARE, MEDICAID, SELFPAY ==
[2024-08-02 12:52] LABS: Hematocrit 37.9 % (37.0-47.0); Hemoglobin 12.6 g/dl (12.0-16.0); Mean Corpuscular HGB Conc 33.2 g/dl (31.0-35.0); Mean Corpuscular Hemoglobin 26.9 pg (27.0-33.0); Mean Corpuscular Volume 80.8 fL (80.0-98.0); Mean Platelet Volume 10.1 fL (9.4-12.3); Platelet Count 407 X10*3/uL (160-400); Red Blood Count 4.69 X10*6/uL (4.20-5.50); Red Cell Distribution Width 13.1 % (11.0-16.0); White Blood Count 7.7 X10*3/uL (4.8-10.8)
[2024-08-02 13:18] LABS: Alanine Aminotransferase 40 U/L (0-31); Albumin Level 3.8 g/dL (3.5-5.0); Alkaline Phosphatase 68 U/L (39-117); Anion Gap 10 (12-20); Aspartate Amino Transferase 36 U/L (5-31); Bilirubin Total 0.8 mg/dL (0.0-1.0); Blood Urea Nitrogen 14 mg/dL (9-16); Calcium 9.1 mg/dL (8.4-10.2); Carbon Dioxide 30 mmol/L (22-29); Chloride 103 mmol/L (96-108); Estimated Glomerular Filt Rate > 60; Glucose Random 112 mg/dL (60-115); Lipase 44 U/L (8-78); Potassium 3.4 mmol/L (3.3-5.1); Sodium 140 mmol/L (135-145); Total Protein 7.2 g/dL (6.5-8.0)
== END 2024-08-02 11:33 | disposition home or self-care (01) ==
LOC: HO.LAB 11:32
PROVIDERS: PCP Physician Assistant; Visit Provider Physician Assistant
DX: R10.31 Right lower quadrant pain (principal)
CPT/HCPCS: 36415; 80053; 83690; 85027

== ENCOUNTER 2024-09-06 10:17 | Outpatient (REF) | payer MEDICARE, MEDICAID, SELFPAY ==
--- NOTE | ~2024-09-06 | US_ITS ---
CLINICAL HISTORY: R10.31 - Right lower quadrant pain --- Additional Notes or Special Instructions: Fajardo ving mid and epigastric abdominal pain, ultrasound evaluate for US abdomen complete Comparison: None Findings: The visualized pancreas is normal. The aorta and inferior vena cava are normal caliber. The appearance of the liver suggests fatty infiltration without focal lesion. There is no intrahepatic bile duct dilatation. The common duct is 3.0 mm in diameter. The gallbladder is normal. There is no sonographic More sign. The main portal vein is antegrade. The right kidney is 11.0 cm in length. The left kidney is 10.5 cm in length. The spleen is normal. No ascites. IMPRESSION: 1. Hepatic steatosis. This document has been electronically signed by: Efren Schroeder MD on 09/07/2024 08:48:18
== END 2024-09-06 10:18 | disposition home or self-care (01) ==
LOC: HO.US 10:17
PROVIDERS: PCP Physician Assistant; Visit Provider Physician Assistant
DX: R10.31 Right lower quadrant pain (principal)
CPT/HCPCS: 76700

== ENCOUNTER → 2024-09-06 10:20 | Outpatient (BNV) | payer MEDICARE, MEDICAID, SELFPAY | PROVIDERS: PCP Physician Assistant; Visit Provider Specialist | DX: R10.31 Right lower quadrant pain (principal); K76.0 Fatty (change of) liver, not elsewhere classified | CPT/HCPCS: 76700 ==

== ENCOUNTER 2024-10-02 09:38 | Outpatient (AMB) | payer MEDICARE, MEDICAID, SELFPAY ==
--- NOTE | 2024-10-02 09:57 | A.OFFVIS_ITS ---
Intake Vital Signs 10/02/24 09:59 Height 5 ft 2 in Weight 237 lb BMI 43.3 BP 120/90 H Blood Pressure Location Lt brachial Position Sitting Pulse 94 Pulse Source Pulse Oximeter Temp 97.3 F Temp Source Temporal Artery Scan Pulse Oximetry (%) 99 Oxygen Delivery Method Room Air Intake Visit Reasons: AWV Cutting Table Operator Required: No Accompanied by: Significant Other Allergies amlodipine Allergy (Unknown, Verified 10/02/24 10:03) Hives amoxicillin [AMOXICILLIN] Allergy (Unknown, Verified 10/02/24 10:03) UNKNOWN aspirin [ASPIRIN] Allergy (Unknown, Verified 10/02/24 10:03) LOW PLATELETS, bleeding, ITP propranolol Allergy (Unknown, Verified 10/02/24 10:03) Hives Medication List - Last Reconciled 10/02/24 by Rajesh Caraballo PA-C albuterol sulfate 2.5 mg (3 mL) inhalation Q6H PRN 30 days albuterol sulfate 90 mcg/actuation 2 puffs PO Q4H PRN 30 days blood sugar diagnostic (FreeStyle Lite Strips) once daily dicyclomine 20 mg PO TID 30 days eltrombopag olamine (Promacta) 50 mg PO .weekly hydrochlorothiazide 25 mg PO DAILY 90 days miscellaneous medical supply As directed omeprazole 20 mg PO DAILY ondansetron 4 mg PO Q8H PRN 10 days triamcinolone acetonide 0.1% 1 appl topical BID HPI AWV HPI Details Patient is a 34-year-old female here today for an annual wellness visit. Patient has a past medical history significant for thrombocytopenia, hypertension, anxiety, fatty liver, obesity mild persistent asthma, PTSD,.? IG M. Today we discussed patient's comprehensive care plan and end of life planning. Given a MOLST for MEDICAL IMAGING TECHNOLOGIST--> Ovarian Cyst: has been followed by MEDICAL IMAGING TECHNOLOGIST, Pap done in 2019 upcoming appointment with library circulation assistant Vaccines:? Up-to-date with tetanus, pneumonia, flu,COVID Laboratory Tests 08/20/21 02/14/22 02/23/23 11:07 17:54 10:43 RBC 5.08 Hgb 13.9 Creatinine 0.98 0.90 Random Glucose Fasting Glucose 122 H AST 33 H 21 33 H ALT 28 Cholesterol 243 201 H LDL Cholesterol, C alc 166 128 H TSH 0.95 07/26/23 09/18/23 08/02/24 10:52 10:52 12:12 RBC 4.69 Hgb 13.7 Creatinine 1.04 Random Glucose 181 H Fasting Glucose 107 H AST 33 H 36 H ALT 44 H 40 H Cholesterol LDL Cholesterol, C alc TSH HPI Comments History of Present Illness Details reviewed past medical history- yes reviewed surgical / hospitalization history- yes reviewed current medications- yes reviewed family history- yes home safety throw rugs? grab bars? raised toilet seat? working smoke detectors? activities of daily living difficulty bathing or showering? difficulty dressing? difficulty using the toilet? difficulty getting in and out of bed? difficulty walking? receives help from other person's with any of the above tasks? instrumental activities of daily living uses telephone - gets to place out of walking distance- go shopping for groceries- repairs own meals- does own minor home maintenance- does own laundry- does own housework- manages own money- currently takes medication- end of life planning discussed advanced directives- yes advanced directives on file? discussed wishes expressed in advanced directives. fall risk have you had any falls with injuries in the past year? have you had 2 or more falls in the past year? fall risk assessment: [facility] Medical History Tinea versicolor Mucocele of maxillary sinus Epistaxis, recurrent Bartholin gland cyst Hypertension Asthma History of ITP Obesity, morbid, BMI 40.0-49.9 Surgical History H/O removal of cyst History of ectopic History of wisdom tooth extraction History of hemorrhoidectomy Family History Father Hypertension Mother Hypertension Diabetes Sister Hypertension Fatty liver Maternal Grandmother Diabetes Hypertension Lung cancer Sister Prediabetes Maternal Grandfather Lung cancer Social History Housing: Apartment Alcohol intake: current Alcohol intake frequency: does not drink Alcohol type: wine Patient Tobacco Use Status: Former Tobacco user Tobacco use type: Cigarette e-Cigarette/Vaping Use: Never Used Second Hand Smoke Exposure: No Substance Use Type: Marijuana service: No Current occupational status: unemployed Sexual orientation: Straight/Heterosexual Gender identity: Female Cognitive needs: No Hearing needs: No Vision needs: Yes (wear glasses) Female Reproductive History Menstrual Age of Menarche: 8 Questionnaire Medicare Wellness Checkup What [age] What gender do you identify with?: female During the past 4 weeks, how much have you been bothered by emotional problems such as feeling anxious, depressed, irritable, sad or downhearted, and blue?: quite a bit During the past 4 weeks, has your physical & emotional health limited your social activities with family, friends, neighbors, or groups?: moderately During the past 4 weeks, how much bodily pain have you generally had?: mild pain During the past 4 weeks, was someone available to help you if you needed & wanted help?: yes, quite a bit During the past 4 weeks, what was the hardest physical activity you could do for at least 2 minutes?: light Can you get to places out of walking distance without help? (For eg., can you travel alone on buses, taxis or drive your car?): No Can you go shopping for groceries or clothes without someone's help?: No Can you prepare your own meals?: Yes Can you do your housework without help?: Yes Because of any health problems, do you need the help of another person with your personal care needs such as eating, bathing, dressing or getting around the house?: No Can you handle your own money without help?: Yes During the past 4 weeks, how would you rate your health in general?: fair During the past 4 weeks how have things been going for you?: pretty bad Are you having difficulties driving your car?: not applicable, I don't use a car Do you always fasten your seat belt when you are in a car?: yes, usually During past 4 weeks, have you been bothered by the following: never: Sexual problems? and Teeth or denture problems? and sometimes: Falling or dizzy when standing up, Trouble eating well?, Problems using the telephone? and Tiredness or fatigue? Have you fallen 2 or more times in the past year?: No Are you afraid of falling?: Yes Are you a smoker?: no During the past 4 weeks, how many drinks of wine, beer, or other alcoholic beverages did you have?: 1 drink or less per week Do you exercise for about 20 minutes 3 or more times a week?: yes, most of the time Have you been given information to help with the following?: no: Hazards in your house that might hurt you? and no: Keeping track of your medications? How often do you have trouble taking medicines the way you have been told to take them?: I always take medicine as prescribed How confident are you that you can control & manage most of your health problems?: not very confident What is your race?: or origin or descent Mini Mental State Exam (MMSE) Orientation What is the (year) (season) (date) (day) (month)?: year Where are we (state) (county) (town or city) (hospital) (floor)?: town or city Attention & Calculation (CHOOSE ONE) Spell WORLD backwards (DLROW): 5 letters Score Score: 7 Activity of Daily Living Bathing - sponge bath, tub bath or shower: receives no assistance (gets in/out by self, if usual bathing means Dressing - getting clothes from closets & drawers, including inner/outer garments & fasteners.: gets clothes & gets completely dressed without help Toileting - going to the 'toilet room' for urine/bowel elimination & cleaning self/arranging clothes: goes to toilet room, cleans self, arranges clothes without help Transfer: moves in & out of bed and chair without help (may use support object) Continence: controls urination/bowel movements completely by self Feeding: feeds self without help Total Score: 0 Information obtained from: patient Using telephone: independent Traveling: needs assistance Shopping: needs assistance Preparing meals: independent Housework: independent Taking medicine: independent Managing money: independent PHQ-9 Over the last 2 weeks, how often have you been bothered by any of the following problems? 1. Little interest or pleasure in doing things: more than half the days 2. Feeling down, depressed, or hopeless: more than half the days 3. Trouble falling or staying asleep, or sleeping too much: more than half the days 4. Feeling tired or having little energy: more than half the days 5. Poor appetite or overeating: more than half the days 6. Feeling bad about yourself - or that you are a failure or have let yourself or your family down: more than half the days 7. Trouble concentrating on things, such as reading the newspaper or watching television: more than half the days 8. Moving or speaking so slowly that other people could have noticed. Or the opposite - being so fidgety or restless that you have been moving around a lot more than usual: several days 9. Thoughts that you would be better off or of hurting yourself in some way: not at all Total score: 15 Depression Screening Interpretation: Positive Depression Screening Follow-up: Existing condition Depression Screening Done: Yes 63464 - PHQ-9 Billing: Yes Source: Developed by Drs. Jass Sandoval, Anahi Johnston, Isai Kumari and colleagues, with an educational kanu from [employer]. Physical Exam Vital Signs: Last Vital Signs Temp 97.3 F 10/02/24 09:59 Pulse 94 10/02/24 09:59 BP 120/90 H 10/02/24 09:59 Pulse Ox 99 10/02/24 09:59 Oxygen Delivery Method Room Air 10/02/24 09:59 BMI result Body Mass Index 43.3 HEENT Other: hearing screening whisper test- passed Eyes Other: vision screening- 20 20 OS OD OU Other: urinary incontinence? no Neuro Other: balance Romberg- passed tandem walk test- able walk-in turned test- able rise from sit to stand- within 2 seconds Results AMB Hemoglobin A1c AMB Hemoglobin A1c 4.9 % Last Edit by STIVEN Gonzales on 10/02/24 10:04 Assessment & Plan Assessment & Plan (1) Annual wellness visit: Code(s): Z00.00 - Encounter for general adult medical examination without abnormal findings Plan: As per HPI Orders: Orders AMB Hemoglobin A1c Today Z13.1 - Encounter for screening for diabetes mellitus Quality Reporting (2019) Depression/Bipolar (159/160/161/177) PHQ-9: Total score: 15 Coding Level of Care Code Medicare First (G0438) Diagnoses Annual wellness visit Z00.00 CPT Codes Advance Care Planning - Time spent: 1-15 minutes, not on file ([id number]) Additional Codes PHQ-9 - 71259 - PHQ-9 Billing: Yes ([id number]) Advance Care Planning Advance Care Planning discussion: Exists, not on file Date of discussion: 10/02/24 Who was present: Patient significant other Forms completed: MOLST Time spent: 1-15 minutes, not on file Actual minutes spent: 4
[2024-10-02 09:59] VITALS: BP 120/90; PULSE 94; TEMP 36.3; O2SAT 99; BMI 43.3
== END 2024-10-02 10:28 | disposition home or self-care (01) ==
LOC: HO.HMCH 09:39
PROVIDERS: PCP Physician Assistant; Visit Provider Physician Assistant
DX: Z00.00 Encounter for general adult medical examination without abnormal findings (principal); Z13.1 Encounter for screening for diabetes mellitus

== ENCOUNTER → 2024-10-02 09:38 | Outpatient (BNVA) | payer MEDICARE, MEDICAID, SELFPAY | PROVIDERS: PCP Physician Assistant; Visit Provider Physician Assistant | DX: Z00.00 Encounter for general adult medical examination without abnormal findings (principal); Z13.1 Encounter for screening for diabetes mellitus; I10 Essential (primary) hypertension | CPT/HCPCS: 83036; 96127 ==

== ENCOUNTER 2025-04-01 10:45 | Outpatient (AMB) | payer MEDICARE, MEDICAID, SELFPAY ==
--- NOTE | 2025-04-01 10:57 | MHC.PC.OV ---
Vital Signs 04/01/25 10:59 Height 5 ft 2 in Weight 233 lb 6 oz BMI 42.7 BP 120/80 Blood Pressure Location Lt brachial Position Sitting Pulse 108 H Pulse Source Pulse Oximeter Temp 97.3 F Temp Source Temporal Artery Scan Pulse Oximetry (%) 98 Oxygen Delivery Method Room Air Intake Visit Reasons: 6 month Intake Note: Patient is here to follow up on Asthma, HTN, Low back pain. Wire Insulator Required: No Tractor Driver Teamster: Present Accompanied by: Spouse Allergies amlodipine Allergy (Unknown, Verified 04/01/25 11:16) Hives amoxicillin (AMOXICILLIN) Allergy (Unknown, Verified 04/01/25 11:16) UNKNOWN aspirin (ASPIRIN) Allergy (Unknown, Verified 04/01/25 11:16) LOW PLATELETS, bleeding, ITP propranolol Allergy (Unknown, Verified 04/01/25 11:16) Hives Medication List - Last Reconciled 04/01/25 by Rajesh Caraballo PA-C albuterol sulfate 2.5 mg (3 mL) inhalation Q6H PRN 30 days albuterol sulfate 90 mcg/actuation 2 puffs PO Q4H PRN 30 days blood sugar diagnostic (FreeStyle Lite Strips) once daily cholecalciferol (vitamin D3) 25 mcg PO DAILY 90 days dicyclomine 20 mg PO TID 30 days eltrombopag olamine (Promacta) 50 mg PO .weekly hydrochlorothiazide 25 mg PO DAILY 90 days miscellaneous medical supply As directed omeprazole 20 mg PO DAILY ondansetron 4 mg PO Q8H PRN 10 days triamcinolone acetonide 0.1% 1 appl topical BID Tobacco use date assessed: 04/01/25 Dental Screening Dental Screen Date: 08/01/24 HPI 6 month HPI Details Patient is a 34-year-old female here today for follow-up visit. Patient has a past medical history significant for thrombocytopenia, hypertension, anxiety, obesity mild persistent asthma, PTSD, IGM. Concern--> .. ? Anxiety:? She identifies anxiety as her biggest issue, stating it prevents her from doing a lot and can escalate from 0 to 100, sometimes resulting in panic attacks. She reports being able to manage her depression on her own. The patient reports smoking, which she finds helps with her anxiety. She has a history of being in therapy for three years, which she eventually found helpful, but notes it is hard for her to start over with new providers because she doesn't want to open up as much. She experiences significant anxiety when leaving the house and sometimes will not leave at all, consistent with agoraphobia. .. Thromocytopenia : Followed by? Dr Taylor for her thrombocytopenia, was treated with IV infusion. Now on Promacta , Last platelet count in our records is at 220K. .. HTN: . Patient continues on hydrochlorothiazide with the side effect on her blood pressure. Otherwise no reports of headache, chest discomforts and or vision issues.. .. Borderline high cholesterol: Most recent lipid panel showing much improved total cholesterol. She has been working on lifestyle modifications to reduce her cholesterol. .. Impaired glucose metabolism:? Most recent A1c at 5.9, has been started on metformin due to impaired glucose metabolism.? She will work on lifestyle to reduce her weight and carbohydrates in her diet. [facility] Medical History Tinea versicolor Mucocele of maxillary sinus Epistaxis, recurrent Bartholin gland cyst Hypertension Asthma History of ITP Obesity, morbid, BMI 40.0-49.9 Surgical History H/O removal of cyst History of ectopic History of wisdom tooth extraction History of hemorrhoidectomy Family History Father Hypertension Mother Hypertension Diabetes Sister Hypertension Fatty liver Maternal Grandmother Diabetes Hypertension Lung cancer Sister Prediabetes Maternal Grandfather Lung cancer Social History Housing: Apartment Alcohol intake: current Alcohol intake frequency: holidays/special occasions only Alcohol type: wine Patient Tobacco Use Status: Former Tobacco user Tobacco use type: Cigarette e-Cigarette/Vaping Use: Never Used Second Hand Smoke Exposure: Yes Substance Use Type: Marijuana service: No Current occupational status: unemployed Sexual orientation: Straight/Heterosexual Gender identity: Female Cognitive needs: No Hearing needs: No Vision needs: Yes (wear glasses) Female Reproductive History Menstrual Age of Menarche: 8 Questionnaire Thrive Questionnaire Date Thrive assessed: 10/02/24 I am a: Patient What is your living situation today?: I have a steady place to live Within the past 12 months, did the food you bought not last and you didn't have the money to get more?: I choose not to answer this question Within the past 12 months, did you worry whether your food would run out before you got money to buy more?: I choose not to answer this question Do you have trouble paying for medicines?: No Do you have trouble getting transportation to medical appointments?: I choose not to answer this question Do you have trouble paying your heating and electricity bill?: No Do you have trouble taking care of your child, family member or friend?: No Do you have trouble with day-to-day activities such as bathing, preparing meals, shopping, managing finances, etc.?: No Are you currently unemployed and looking for a job?: No Are you interested in more education?: No Please select the resources that you would like help with: None Currently or been in a relationship where the following occur: No concerns reported THRIVE Score: 0 SHANNEN-7 AMB Questionnaire SHANNEN-7 Date SHANNEN - 7 assessed: 08/01/24 Source: Developed by Drs. Jass Sandoval, Anahi Johnston, Isai Kumari and colleagues, with an educational kanu from [employer]. Review of Systems Const Denies headache(s) Eyes Denies loss of vision ENT Denies vertigo, Denies dizziness, Denies headache(s) and Denies sore throat Card Denies chest pain, Denies leg edema and Denies lightheadedness Resp Denies cough, Denies hemoptysis and Denies wheezing GI Denies abdominal pain, Denies melena, Denies constipation, Denies diarrhea and Denies vomiting Denies urinary frequency, Denies dysuria and Denies urinary urgency Musc Denies arthralgias, Denies joint swelling, Denies numbness and Denies tingling Neuro Denies Abnormal speech present, Denies behavioral changes, Denies vertigo, Denies dizziness, Denies headache(s), Denies loss of vision, Denies memory loss, Denies numbness and Denies tingling Psych Denies anxiety, Denies behavioral changes, Denies depression, Denies memory loss and Denies panic attacks Roc/Lymph Denies easy bleeding and Denies easy bruising Aller/Immun Denies wheezing Physical exam (Primary Care) Vital Signs: Last Vital Signs Temp 97.3 F 04/01/25 10:59 Pulse 108 H 04/01/25 10:59 BP 120/80 04/01/25 10:59 Pulse Ox 98 04/01/25 10:59 Oxygen Delivery Method Room Air 04/01/25 10:59 BMI result Body Mass Index 42.7 BMI Assessment/Plan discussion: High BMI High, discussed plan: lifestyle, weight reduction, dietary and physical activity Tobacco/Smoking Status: Tobacco use Status Tobacco use date assessed 04/01/25 04/01/25 11:04 Patient Tobacco Use Status Former Tobacco user 04/01/25 11:04 Tobacco use type Cigarette 04/01/25 11:04 e-Cigarette/Vaping Use Never Used 04/01/25 11:04 Thrive Assessment: Date of Thrive Assessment Date Thrive assessed 10/02/24 04/01/25 11:04 Currently or been in a relationship where the following occur: No concerns reported Const General: healthy appearing, no acute distress, alert and awake Nutritional Appearance: well nourished Orientation/consciousness: oriented to person, oriented to place and oriented to time HENMT Ears: TM's normal bilaterally General nose exam: Normal nasal mucous membranes and turbinates present Eyes Conjunctivae: conjunctivae normal Sclerae: sclerae normal Pupils: Equal, round and reactive pupils present Neck Neck: Yes no lymphadenopathy and Yes no JVD Thyroid: Thyroid normal Carotids: no bruits Resp Effort & Inspection: normal respiratory effort and not tachypneic Auscultation: no crackles, no rales, no rhonchi and no wheezes Cardio Rate: regular rate Rhythm: regular rhythm Heart sounds: no murmurs and normal S1 and S2 GI Palpation (GI): Soft to palpation, nontender, no hepatomegaly and no splenomegaly Auscultation: normal bowel sounds Skin General skin exam: no rashes or lesions noted and dry skin Neuro General: oriented to person, oriented to place and oriented to time Cranial nerves: Yes Equal, round and reactive pupils present Speech: No Abnormal speech present Gait exam (Neuro): Normal gait present Motor exam (neuro): no tremor noted Extrem Right upper extremity: full ROM Left upper extremity: full ROM Right lower extremity: full ROM; no edema Left lower extremity: full ROM; no edema Psych Mental Status: mental status grossly normal Speech and movement: Normal speech and movement present Affect: normal affect Attitude: cooperative Thought process: Normal thought process present Office Procedures Flu Questionnaire Does the patient have a severe egg allergy?: No Does the patient have severe life threatening allergies?: No Does the patient have a fever or illness today?: No Has the patient ever had Guillain-F[place]ys[place] Syndrome?: No Has the patient ever had any past reaction to a flu shot?: No Immunizations Fluarix [id number] (PF) 45 mcg (15 mcg x 3)/0.5 mL IM syringe Performing Provider: Rajesh Caraballo PA-C [facility] Administered by: NARAYAN Hernandez on 04/01/25 11:40 Dose Route Admin Location Dispensed Lot Number Expiration Date [facility] Fiberglass Container Winding Operator 0.5 mL IM Left Deltoid 0.5 mL [id number] 11/19/25 [id number] [employer] VIS Given Date VIS Provided VIS Publication Date 04/01/25 Single Vaccine 24 Eligibility Eligibility Date Funding Source Not [facility] Eligible 04/01/25 Private Coding Level of Care Code Est Pt Level 4 (86708) Diagnoses Anxiety F41.9 Thrombocytopenia D69.6 MDD (major depressive disorder), recurrent episode, moderate F33.1 Essential hypertension I10 Hypertension type: essential hypertension Class 3 obesity E66.01 Assessment & Plan Assessment & Plan (1) Anxiety: Code(s): F41.9 - Anxiety disorder, unspecified Category: Medical Plan: The patient's anxiety and its impact, including panic attacks and agoraphobia, were discussed. Treatment options were reviewed, including daily maintenance medication with an SSRI and as-needed medication for acute, severe episodes. The patient expressed a preference for an as-needed medication. An as-needed anxiolytic medication, such as lorazepam, will be prescribed for use during severe anxiety episodes, rated as a 9 or 10 out of 10. The addictive potential of this class of medication was discussed, and it will be prescribed in a limited quantity. A referral will be sent for mental health therapy to help the patient learn coping techniques to manage her anxiety. (2) Thrombocytopenia: Code(s): D69.6 - Thrombocytopenia, unspecified Category: Medical Plan: Patient continues to follow Hematology, continues on Promacta weekly (3) MDD (major depressive disorder), recurrent episode, moderate: Code(s): F33.1 - Major depressive disorder, recurrent, moderate Category: Medical Plan: Patient has a history of major depressive disorder. She feels that she is very supported by her significant other. She is not on any depression medication at this time we discuss perhaps trying a daily SSRI to help both her anxiety and depression and she will consider. She is interested in cognitive behavioral therapy again. (4) Hypertension: Code(s): I10 - Essential (primary) hypertension Category: Medical Qualifiers: Hypertension type: essential hypertension Qualified Code(s): I10 - Essential (primary) hypertension Plan: Patient's blood pressure acceptable today in office. Will continue her current dose of hydrochlorothiazide with goal blood pressure to remain below 1 40/90 (5) Class 3 obesity: Code(s): E66.01 - Morbid (severe) obesity due to excess calories Category: Medical Plan: Patient does understand her BMI is over 40 and will continue working on better eating habits. She has not physically active at this time as she continues to mayer with her mental health. Orders: Orders Influenza [id number] Immunization 04/01/25 Z23 - Encounter for immunization Vitamin D 25-OH Total 04/01/25 E55.9 - Vitamin D deficiency, unspecified Microalbumin, Random (w Creat) 04/01/25 I10 - Essential (primary) hypertension Comprehensive [place]. Panel Fast 04/01/25 I10 - Essential (primary) hypertension Complete Blood Count no Diff 04/01/25 I10 - Essential (primary) hypertension Lipid Panel 04/01/25 E78.9 - Disorder of lipoprotein metabolism, unspecified Medications: New lorazepam 0.5 mg PO DAILY PRN 5 tabs 0RF Panic attacks 5 days F41.9 - Anxiety disorder, unspecified Patient Instructions: Goal: Blood pressure to be below 140/90 Barriers: Being more physically active and adapting to better eating habits.
[2025-04-01 10:59] VITALS: BP 120/80; PULSE 108; TEMP 36.3; O2SAT 98; BMI 42.7
--- OUTSIDE RECORDS SUMMARY | 2025-04-01 12:49 | XMS_ITS | Clinical Summary ---
Author Organization [facility] Address [address] [place] [address] Care Team Providers Care Tire Stripper Name Role Phone Unknown, Provider MD Primary Care Provider Unava ilable Social History Tobacco Use Types Packs/Day Years Used Date Smoking Tobacco: Never Assessed Interpersonal Safety Answer Date Record ed Physically Hurt Never 12/24/2019 Verbally Threaten Not on file 12/24/2019 Comments Unknown Sex and Gender Information Value Date Recorded Sex Assigned at Not on file Legal Sex Female 12:42 EST Gender Identity Not on file Sexual Orientation Not on file Plan of Treatment Health Maintenance Due Date Last Done Comments Hepatitis C Screen 1989 Hepatitis B Vaccine (1 of 3 - 19+ 3-dose series) 08/10 COVID-19 Vaccine ( season) 2024 Care Teams Tire Stripper Relationship Specialty Start Date End Date Unknown, Provider, PCP - General 04/08/17
== END 2025-04-01 11:45 | disposition home or self-care (01) ==
LOC: HO.HMCH 10:45
PROVIDERS: PCP Physician Assistant; Visit Provider Physician Assistant
DX: Z23 Encounter for immunization (principal)

== ENCOUNTER → 2025-04-01 10:45 | Outpatient (BNVA) | payer MEDICARE, MEDICAID, SELFPAY | PROVIDERS: PCP Physician Assistant; Visit Provider Physician Assistant | DX: I10 Essential (primary) hypertension (principal); E55.9 Vitamin D deficiency, unspecified; F33.1 Major depressive disorder, recurrent, moderate; Z23 Encounter for immunization; F41.9 Anxiety disorder, unspecified | CPT/HCPCS: 90471; 90656; 99212 ==

== ENCOUNTER 2025-05-09 13:57 | Outpatient (AMB) | payer MEDICARE, MEDICAID, SELFPAY ==
[2025-05-09 14:36] VITALS: BP 142/84; PULSE 102; TEMP 37; O2SAT 100; BMI 43.3
--- NOTE | 2025-05-09 14:36 | AM.OFFWIN_ITS ---
Intake Vital Signs 05/09/25 14:36 Height 5 ft 2 in Weight 237 lb BMI 43.3 BP 142/84 H Blood Pressure Location Lt brachial Position Sitting Pulse 102 H Pulse Source Pulse Oximeter Temp 98.6 F Temp Source Oral Pulse Oximetry (%) 100 Oxygen Delivery Method Room Air Intake Visit Reasons: EP right eye swollen for 2 weeks Intake Note: pt presents with rt eyelid swelling- feels heavy and dry with an ache below eyebrow x2 weeks Patient Tobacco Use Status: Former Tobacco user Allergies amlodipine Allergy (Unknown, Verified 05/09/25 14:40) Hives amoxicillin (AMOXICILLIN) Allergy (Unknown, Verified 05/09/25 14:40) UNKNOWN aspirin (ASPIRIN) Allergy (Unknown, Verified 05/09/25 14:40) LOW PLATELETS, bleeding, ITP propranolol Allergy (Unknown, Verified 05/09/25 14:40) Hives Do you need a note to return to daycare/school/sports/work: No HPI HPI Comments History of Present Illness Details Patient presents with right upper eyelid swelling and itching for 2 weeks. Symptoms started gradually and have been worsening. She reports the eyelid feeling heavy, dry, and itchy. She has been using cold compresses with minimal relief. Denies pain, vision changes, drainage, or redness. She reports a similar episode last year that resolved spontaneously. She does not have an eye doctor. [facility] Medical History (Updated 05/09/25 @ 15:02 by Sue Patton NP) Allergic conjunctivitis Tinea versicolor Mucocele of maxillary sinus Epistaxis, recurrent Bartholin gland cyst Hypertension Asthma History of ITP Obesity, morbid, BMI 40.0-49.9 Surgical History H/O removal of cyst History of ectopic History of wisdom tooth extraction History of hemorrhoidectomy Family History Father Hypertension Mother Hypertension Diabetes Sister Hypertension Fatty liver Maternal Grandmother Diabetes Hypertension Lung cancer Sister Prediabetes Maternal Grandfather Lung cancer Social History Housing: Apartment Alcohol intake: current Alcohol intake frequency: holidays/special occasions only Alcohol type: wine Patient Tobacco Use Status: Former Tobacco user Tobacco use type: Cigarette e-Cigarette/Vaping Use: Never Used Second Hand Smoke Exposure: Yes Substance Use Type: Marijuana service: No Current occupational status: unemployed Sexual orientation: Straight/Heterosexual Gender identity: Female Cognitive needs: No Hearing needs: No Vision needs: Yes (wear glasses) Female Reproductive History Menstrual Age of Menarche: 8 Review of Systems Const All systems reviewed & are unremarkable except as noted in HPI and below Physical Exam Vital Signs: Last Vital Signs Temp 98.6 F 05/09/25 14:36 Pulse 102 H 05/09/25 14:36 BP 142/84 H 05/09/25 14:36 Pulse Ox 100 05/09/25 14:36 Oxygen Delivery Method Room Air 05/09/25 14:36 BMI result Body Mass Index 43.3 Const General: no acute distress Nutritional Appearance: obese Orientation/consciousness: patient oriented x3 HEENT Head: Yes normocephalic General nose exam: Normal external nose present Face and sinus: Yes normal facial exam and Yes sinuses nontender Mouth: moist mucous membranes Throat: Yes uvula midline Eyes Other: Right upper eyelid shows mild swelling without erythema or drainage. No signs of conjunctival injection or discharge. No other ocular abnormalities noted. Conjunctivae: conjunctivae normal Pupils: Equal, round and reactive pupils present EOM: EOMs intact bilaterally Neuro General: patient oriented x3, gait normal and moves all extremities Cranial nerves: Yes Equal, round and reactive pupils present Psych Speech and movement: Normal speech and movement present Assessment & Plan Assessment & Plan (1) Allergic conjunctivitis: Code(s): H10.10 - Acute atopic conjunctivitis, unspecified eye Qualifiers: Laterality: right Qualified Code(s): H10.11 - Acute atopic conjunctivitis, right eye Plan: Likely allergic or irritant blepharitis or chronic eyelid dermatitis. Less likely causes include chalazion or stye, given absence of pain, redness, or localized nodule. Advised lid hygiene with gentle cleaning using warm water. Continue with cold compresses as needed for comfort. Ordered topical ophthalmic anti-histamine for itching relief. Monitor for red flags such as pain, increasing swelling, vision changes, or purulent discharge. Provided list of ophthalmology in the area - she is to make an appointment for f/u. Educate patient on avoiding eye rubbing and potential allergens. Medications: New ketotifen fumarate 0.025%(0.035%) (Zaditor) 1 drp ophthalmic (eye) Q8H 10 mL 1RF H10.11 - Acute atopic conjunctivitis, right eye Coding Level of Care Code Est Pt Level 4 (94068) Diagnoses Allergic conjunctivitis of right eye H10.11 Laterality: right Time Spent (min) 20
--- OUTSIDE RECORDS SUMMARY | 2025-05-09 18:14 | XMS_ITS | Clinical Summary ---
Author Organization [facility] Address [address] [place] [address] Care Team Providers Care Adjunct Professor Of English Name Role Phone Unknown, Provider MD Primary [...] - 19+ 3-dose series) 08/10 COVID-19 Vaccine (2024- season) 2025 Care Teams Adjunct Professor Of English Relationship Specialty Start Date End Date Unknown, Provider, PCP - General 04/08/17
== END 2025-05-09 15:03 | disposition home or self-care (01) ==
PROVIDERS: PCP Physician Assistant; Visit Provider Nurse Practitioner Family
DX: H10.11 Acute atopic conjunctivitis, right eye (principal)

== ENCOUNTER → 2025-05-09 13:57 | Outpatient (BNVA) | payer MEDICARE, MEDICAID, SELFPAY | PROVIDERS: PCP Physician Assistant; Visit Provider Nurse Practitioner Family | DX: H10.11 Acute atopic conjunctivitis, right eye (principal) | CPT/HCPCS: 99212 ==

== ENCOUNTER 2025-05-14 07:55 | Emergency (ER) | payer MEDICARE, MEDICAID, SELFPAY ==
[2025-05-14 08:10] VITALS: BP 165/97; PULSE 86; RESP 18; TEMP 36.8; O2SAT 98; BMI 43.2
[2025-05-14] MEDS: Tetracaine HCl/PF 0.5% Oph Sol 4 ML DROPS 1 DROP EYE-LEFT (10:37)
[2025-05-14] MEDS: Fluorescein Sodium STRIP 1 STRIP EYE-LEFT (10:37)
--- OUTSIDE RECORDS SUMMARY | 2025-05-14 10:55 | XMS_ITS | Clinical Summary ---
Author Organization [facility] Address [address] [place] [address] Care Team Providers Care Manager Gyn Name Role Phone Unknown, Provider MD Primary [...] COVID-19 Vaccine (2024- season) 2025 Care Teams Manager Gyn Relationship Specialty Start Date End Date Unknown, Provider, PCP - General 04/08/17
--- NOTE | 2025-05-14 11:09 | ED.EYEPROB ---
HPI - Eye Problem General Chief complaint: Eye Problems Stated complaint: R eye irritation Time Seen by Provider: 05/14/25 10:08 Source: patient and family Mode of arrival: ambulatory Limitations: no limitations History of Present Illness ED Provider: JENNIE RODRIGUEZ PA-C HPI Narrative: 34 year old female presents to the ED today for swelling around her right eye x2 weeks. Reports symptoms initially began with swelling to her right upper eyelid. She was evaluated at at that time, diagnosed with a stye and was discharged home with supportive treatment. She has been applying warm compresses to the area which helped temporarily however she wakes up the following day with increased swelling. Reports continued swelling to her right upper eyelid, now extending to the right cheek just below the eye. Denies any trauma or injury to that eye/face. She does not wear corrective lenses. Does not recall getting anything into the eye and does not report any foreign body sensation to the right eye. Denies any discharge or tearing from the right eye. Denies fever, chills, headache, neck pain, pain to the right eye or pain with eye movements, vision changes. Related Data Home Medications ?Medication ?Instructions ?Recorded ?Confirmed eltrombopag olamine 50 mg tablet 50 mg PO .weekly 08/01/24 04/01/25 (Promacta) omeprazole 20 mg capsule,delayed 20 mg PO DAILY 08/01/24 04/01/25 release triamcinolone acetonide 0.1 % 1 appl topical BID 08/01/24 04/01/25 topical cream Previous Rx's ?Medication ?Instructions ?Recorded miscellaneous medical supply #1 ea 05/04/21 blood sugar diagnostic (FreeStyle #100 ea 08/31/22 Lite Strips) albuterol sulfate 2.5 mg/3 mL 2.5 mg (3 mL) inhalation Q6H PRN 09/22/23 (0.083 %) solution for nebulization shortness of breath or wheezing 30 days #360 mL albuterol sulfate 90 mcg/actuation 2 puff PO Q4H PRN bronchospasm 30 06/10/24 aerosol inhaler days #6.7 grams ondansetron 4 mg disintegrating 4 mg PO Q8H PRN nausea and 08/01/24 tablet vomiting 10 days #30 tabs cholecalciferol (vitamin D3) 25 25 mcg PO DAILY 90 days #90 caps 10/02/24 mcg (1,000 unit) capsule hydrochlorothiazide 25 mg tablet 25 mg PO DAILY 90 days #90 tabs 03/14/25 lorazepam 0.5 mg tablet 0.5 mg PO DAILY PRN Panic attacks 04/02/25 5 days #5 tabs ketotifen fumarate 0.025 % (0.035 1 drp ophthalmic (eye) Q8H #10 mL 05/09/25 %) eye drops (Zaditor) cefuroxime axetil 500 mg tablet 500 mg PO BID 7 days #14 tabs 05/14/25 Allergies Allergy/AdvReac Type Severity Reaction Status Date / Time amlodipine Allergy Unknown Hives Verified 05/14/25 08:13 amoxicillin (AMOXICILLIN) Allergy Unknown UNKNOWN Verified 05/14/25 08:13 aspirin (ASPIRIN) Allergy Unknown LOW Verified 05/14/25 08:13 PLATELETS, bleeding, ITP propranolol Allergy Unknown Hives Verified 05/14/25 08:13 Review of Systems Review of Systems: Yes all other systems are reviewed and are negative [facility] Past Medical History Attestation statement: The following information was validated with the patient. Source: old records reviewed and nursing notes reviewed Medical History Allergic conjunctivitis Tinea versicolor Mucocele of maxillary sinus Epistaxis, recurrent Bartholin gland cyst Hypertension Asthma History of ITP Obesity, morbid, BMI 40.0-49.9 Surgical History H/O removal of cyst History of ectopic History of wisdom tooth extraction History of hemorrhoidectomy Family History Family History Father Hypertension Mother Hypertension Diabetes Sister Hypertension Fatty liver Maternal Grandmother Diabetes Hypertension Lung cancer Sister Prediabetes Maternal Grandfather Lung cancer Social History Social History Housing: Apartment Alcohol intake: current Alcohol intake frequency: holidays/special occasions only Alcohol type: wine Patient Tobacco Use Status: Former Tobacco user Tobacco use type: Cigarette e-Cigarette/Vaping Use: Never Used Second Hand Smoke Exposure: Yes Substance Use Type: Marijuana Advance Directives: No Advance Directives Information Provided: No service: No Current occupational status: unemployed Sexual orientation: Straight/Heterosexual Gender identity: Female Cognitive needs: No Hearing needs: No Vision needs: Yes (wear glasses) Physical Exam Vital Signs: Vital Signs: Last Vital Signs Temp 98.3 F 05/14/25 12:16 Pulse 86 05/14/25 12:16 Resp 18 05/14/25 12:16 BP 165/97 H 05/14/25 12:16 Pulse Ox 98 05/14/25 12:16 O2 Del Method Room Air 05/14/25 12:16 BMI result Body Mass Index 43.2 Patient is hypertensive, afebrile. General: Well appearing, in no acute distress. Skin: Warm, dry, intact. No rashes or lesions. Head: Normocephalic, atraumatic. EENT: Hearing is intact b/l. Moist mucous membranes.? Periorbital swelling noted to right, primarily over lateral aspect of right eyelid extending to right cheek. No overlying cellulitic changes such as erythema. No palpable warmth, deformity, crepitus, fluctuance. No enophthalmous or exopthalmous. EOMs intact without pain or entrapment. PERRLA. No photophobia. No conjunctival injection or chemosis.. No visible foreign body or abrasion. No conjunctival injection or chemosis. No hazy cornea. IOP OD 15, IOP OS 12. Unable to completely perform eyelid eversion d/t swelling. Neck: Supple without LAD Cardiac: Chest wall symmetric. RRR Lungs: Normal respiratory effort without accessory muscle use. CTA bilaterally Psych: Appropriate mood and affect. Responds appropriately to questions. Course Course Course Narrative: Exam consistent with periorbital cellulitis. No orbital involvement. rosie has amox allergy - will d/c home with ceftin. advised continued warm compresses. Patient has remained stable throughout ED visit today. Discussed worrisome signs and symptoms and when to return to the ED. All questions answered at this time. Patient is agreeable with disposition and stable for discharge. Medications Administered Discontinued Medications Generic Name Dose Route Start Last Admin Trade Name Freq PRN Reason Stop Dose Admin Fluorescein Sodium 1 strip 05/14/25 10:21 05/14/25 10:37 Fluorescein Sodium Strip EYE-LEFT 05/14/25 10:22 1 strip ONCE ONE Administration Tetracaine HCl 1 drop 05/14/25 10:21 12/23/25 10:37 Tetracaine Hcl/Pf 0.5% Oph Gracie 4 Ml Drops EYE-LEFT 05/14/25 10:22 1 drop ONCE ONE Administration Medical Decision Making Medical Decision Making MDM Narrative: 34 year old female presents to the ED today for swelling around her right eye x2 weeks. hypertensive, afebrile. she is well appearing, in NAD. on exam, there is periorbital swelling noted to right, primarily over lateral aspect of right eyelid extending to right cheek. No overlying cellulitic changes such as erythema. No palpable warmth, deformity, crepitus, fluctuance. No enophthalmous or exopthalmous. EOMs intact without pain or entrapment. PERRLA. No photophobia. No conjunctival injection or chemosis.. No visible foreign body or abrasion. No conjunctival injection or chemosis. No hazy cornea. IOP OD 15, IOP OS 12. Unable to completely perform eyelid eversion d/t swelling. Differential diagnosis includes hordeolum, chalazion, preseptal cellulitis. Presentation not consistent with corneal abrasion, corneal foreign body, viral/bacterial/allergic conjunctivitis. I do not have concern for orbital cellulitis, acute angle closure glaucoma, iritis, keratitis, scleritis, uveitis, herpes ophthalmicus. Plan to obtain IOP. Anticipate discharge home with antibiotics and warm compresses. Differential Diagnosis Differential Diagnoses: The differential diagnosis associated with the presentation includes As above Admission/Observation Not indicated Independent Historian Clinical information obtained from an independent historian. History obtained from or confirmed by: Spouse External Record Review External record reviewed: Inpatient record Prescription Management I considered prescription management with: Pain Medication and Antibiotic (cefuroxime) Social Determinants Patient?s care significantly limited by Social Determinants of Health including: Other Social Determinant of Health Critical Care Time Critical Care Time Critical Care Time: No Discharge Plan Discharge Clinical Impression: Preseptal cellulitis of right eye Patient Disposition: Home, Self-Care Instructions: Cellulitis (ED) Additional Instructions: You were evaluated in the ED today for swelling around your right eye. Your presentation is consistent with stye v developing cellulitis around the eye. I am starting you on antibiotics. You are noted to have an amoxicillin allergy so I am starting you on a cephalosporin instead. Take cefuroxime 500 mg twice daily for the next 7 days. As discussed, please continue applying warm compresses to the area. You may take Tylenol/Motrin at home. Follow up with your primary care provider. Return with any new or worsening symptoms such as vision changes, fever/chills, difficulty moving the eye or pain with eye movements, etc. In the case of an emergency call 911. Prescriptions: New cefuroxime axetil 500 mg tablet 500 mg PO BID 7 Days Qty: 14 0RF No Action (DME) FreeStyle Lite Strips Strip See Rx Instructions .ROUTE .MEDSUPPLY Qty: 100 0RF Rx Instructions: once daily albuterol sulfate 90 mcg/actuation HFA aerosol inhaler 2 puff PO Q4H PRN (Reason: bronchospasm) 30 Days Qty: 6.7 0RF hydrochlorothiazide 25 mg tablet 25 mg PO DAILY 90 Days Qty: 90 1RF albuterol sulfate 2.5 mg /3 mL (0.083 %) solution for nebulization 2.5 mg inhalation Q6H PRN (Reason: shortness of breath or wheezing) 30 Days Qty: 360 3RF Promacta 50 mg tablet 50 mg PO .weekly (DME) miscellaneous medical supply Misc See Rx Instructions miscellaneous .MEDSUPPLY Qty: 1 0RF Rx Instructions: As directed omeprazole 20 mg capsule,delayed release(DR/EC) 20 mg PO DAILY triamcinolone acetonide 0.1 % cream 1 appl topical BID ondansetron 4 mg tablet,disintegrating 4 mg PO Q8H PRN (Reason: nausea and vomiting) 10 Days Qty: 30 0RF cholecalciferol (vitamin D3) 25 mcg (1,000 unit) capsule 25 mcg PO DAILY 90 Days Qty: 90 2RF lorazepam 0.5 mg tablet 0.5 mg PO DAILY PRN (Reason: Panic attacks) 5 Days Qty: 5 0RF ketotifen fumarate [Zaditor] 0.025 % (0.035 %) drops 1 drp ophthalmic (eye) Q8H Qty: 10 1RF Referrals: Rajesh Caraballo PA-C [Primary Care Provider, Internal Medicine] Interventions: ED Discharge Assessment Last Done: 05/14/25 12:16 Discharge Date/Time: 05/14/25 12:17 Print Language: Maltese
[2025-05-14 12:16] VITALS: BP 165/97; PULSE 86; RESP 18; TEMP 36.8; O2SAT 98
== END 2025-05-14 12:17 | disposition home or self-care (01) ==
PROVIDERS: Emergency Provider Emergency Medicine; PCP Physician Assistant
DX: H00.031 Abscess of right upper eyelid (principal)
CPT/HCPCS: 99282; 99283